=== PATIENT | female | born 1950 | race Caucasian/White ===

== ENCOUNTER → 2020-06-25 14:00 | Outpatient (CLI) | payer BC, SELFPAY ==
--- NOTE | ~2020-06-25 | MR_ITS ---
EXAMINATION: MR lumbar spine wo con DATE: 06/25/2020 15:02 INDICATION: Low back pain and right sacroiliac joint pain. TECHNIQUE: Magnetic resonance imaging (MRI) of the lumbar spine was performed without intravenous con trast. Sequences included sagittal T2-weighted FSE, sagittal T2-weighted FS FSE, sagittal T1-weighted FSE, and axial T2-weighted FSE. COMPARISON: None FINDINGS: Alignment is normal. Chronic T11 compression fracture with unchanged 20% anterior vertebral body heig ht loss. There is a relatively recent L1 burst fracture also with 20% anterior and central vertebral body height loss and with increased fluid signal extending along a horizontal fracture plane underlyi ng the depressed superior endplate. 2 mm right paracentral retropulsion. Schmorl's node along the inf erior endplate of T12. Remaining vertebral body heights are normal. T1 hyperintense hemangioma at T12 . Severe disc height loss at L4-L5. Moderate disc height loss at L1-L2 and mild disc height loss at T 9-T10. The conus medullaris terminates at L1. There is normal signal in the caudal spinal cord. Parav ertebral soft tissues are unremarkable. The following disc levels are specifically discussed: T12-L1: Annular fissure with broad-based disc extrusion extending from the left to the right subartic ular zone with disc material extending couple millimeters cephalad and caudal to the level of the end plates. There is mild bilateral facet joint osteoarthritis. There is mild bilateral neural foraminal stenosis. There is mild central canal stenosis. L1-L2: Posterior disc osteophyte complex. There is mild bilateral facet joint osteoarthritis. There i s mild bilateral neural foraminal stenosis. There is mild central canal stenosis. L2-L3: Disc is mildly bulging. There is mild bilateral facet joint osteoarthritis. There is mild bila teral neural foraminal stenosis. There is mild central canal stenosis. L3-L4: Disc is mildly bulging. There is mild to moderate bilateral facet joint osteoarthritis. There is mild bilateral neural foraminal stenosis. There is mild central canal stenosis. L4-L5: L4 inferior endplate osteophytes at the bilateral foraminal zones. The disc does not extend be yond the endplate margins. There is mild left facet joint osteoarthritis. There is fusion across the right facet joint. There is moderate left and mild to moderate right neural foraminal stenosis. There is minimal central canal stenosis. L5-S1: Disc osteophyte complex at the bilateral foraminal zones. There is mild to moderate bilateral facet joint osteoarthritis. There is moderate bilateral, right greater than left neural foraminal kalyn nosis. There is no central canal stenosis. IMPRESSION: 1. Relatively recent L1 burst fracture with marrow edema along the fracture line. 2. Severe lumbar spondylosis. Reviewed, dictated and finalized at location A. STMENT OFFICER IMPRESSION: 1. Relatively recent L1 burst fracture with marrow edema along the fracture christiana e. 2. Severe lumbar spondylosis.
== END ==
PROVIDERS: PCP Family Medicine; Visit Provider Physician Assistant Surgical
DX: S32.011A Stable burst fracture of first lumbar vertebra, initial encounter for closed fracture (principal); M47.27 Other spondylosis with radiculopathy, lumbosacral region; M51.46 Schmorl's nodes, lumbar region; M48.07 Spinal stenosis, lumbosacral region
CPT/HCPCS: 72148

== ENCOUNTER 2020-07-02 10:53 | Emergency (ER) | payer BC, SELFPAY ==
[2020-07-02] VITALS (20 sets, daily range): BP systolic 91–106; BP diastolic 57–83; PULSE 99–129; RESP 15–22; TEMP 36.4; O2SAT 91–99
--- NOTE | 2020-07-02 | ECHO_ITS ---
Patient Info Name: Dominga Reynaga Age: 69 years : 1950 Gender: Female Ht: 63 in Wt: 212 lbs BSA: 2.11 m2 HR: 101 bpm BP: 100 / 70 mmHg Technical Quality: Poor Exam Date: 07/02/2020 4:09 PM Exam Location: [facility] Pulmonary Exam Room: ER 3 Patient Status: Emergency Admit Date: 07/02/2020 Staff Ordering Physician: Emiliano Salazar MD Management Services Technician: Opal Trotter RDCS Attending Provider: Stephanie Walters MD Exam Type: CA echo doppler color flow Study Info Indications - eval rv size and fxn sob pe Complete two-dimensional, color flow and Doppler transthoracic echocardiogram is performed with contrast to opacify the left ventricle and to improve the deliniation of the left ventricle endocardial borders. Contrast/Agitated Saline Contrast/Ag. Saline: Definity Amount: 1.00 ml Existing IV Access: Yes IV Access Condition: patent with no signs of infiltration Reason for Poor Study: poor echocardiographic windows Summary 1. There is mildly increased left ventricular wall thickness. 2. Left ventricular systolic function is normal, estimated at 55-60%. 3. Left ventricular septal wall motion is abnormal with septal motion related to bundle branch block. 4. Right ventricular chamber dimension is moderately enlarged. 5. Right ventricular systolic function is reduced. 6. There is no mitral valve regurgitation. 7. There is mild to moderate tricuspid valve regurgitation. 8. Moderate pulmonary hypertension, estimated pulmonary arterial systolic pressure is 54 mmHg. Left Ventricle Left ventricular chamber dimension is normal. Left ventricular systolic function is normal, estimated at 55-60%. There is mildly increased left ventricular wall thickness. Left ventricular septal wall motion is abnormal with septal motion related to bundle branch block. The left ventricular diastolic function is normal. Right Ventricle Right ventricular chamber dimension is moderately enlarged. Right ventricular systolic function is reduced. Left Atria Left atrial chamber dimension is normal. Right Atria Right atrial chamber dimension is normal. Aortic Valve The aortic valve is trileaflet. There is no aortic valve sclerosis. There is no aortic valve stenosis. There is trace aortic valve regurgitation. Pulmonic Valve The pulmonic valve is normal. There is no pulmonic valve stenosis. There is no pulmonic regurgitation. Mitral Valve The mitral valve has normal leaflets. There is mild mitral valve stenosis. There is no mitral valve regurgitation. Tricuspid Valve The tricuspid valve leaflets are normal. There is no significant tricuspid valve stenosis. There is mild to moderate tricuspid valve regurgitation. Moderate pulmonary hypertension, estimated pulmonary arterial systolic pressure is 54 mmHg. Pericardium/Pleural The pericardium appears normal. There is no pericardial effusion. Inferior Vena Cava Normal inferior vena cava with >50% collapse upon inspiration consistent with elevated right atrial pressure, 10 mmHg. Aorta The aortic root size at the sinus of Valsalva is normal. The prox ascending aorta size is normal. Left Ventricular Outflow Tract Name Value Normal LVOT 2D
--- NOTE | ~2020-07-02 | XR_ITS ---
EXAMINATION: XR chest 1V portable DATE: 07/02/2020 11:41 INDICATION: Shortness of breath. TECHNIQUE: A single frontal view of the chest was obtained. COMPARISON: Chest 2 views 03/20/2017, CT abdomen and pelvis 04/02/2018 FINDINGS: There is a chronic 1 cm nodule in left midlung zone, likely benign. There is mild atelectas is in lingula. No pleural effusion or pneumothorax. The heart size is normal. There is a small slidin g hiatal hernia. IMPRESSION: 1. Mild atelectasis in lingula. 2. Small sliding hiatal hernia. Reviewed, dictated and finalized at location B. CTOR MUSEUM OR ZOO
--- NOTE | ~2020-07-02 | CT_ITS ---
EXAMINATION: CTA chest PE abdomen pel DATE: 07/02/2020 12:40 INDICATION: Shortness of breath. TECHNIQUE: Computed tomography angiography (CTA) of the chest was performed with 100 mL Omnipaque-350 intravenous contrast timed to evaluate the pulmonary arteries. Coronal maximum intensity projection 3D-reconstructions were created by the technologist. Computed tomography (CT) of the abdomen and pelv is was performed with intravenous contrast. Automated exposure control and iterative reconstruction t echnique were employed. The dose-length product was 1382.90 mGy-cm. COMPARISON: CT abdomen and pelvis 04/02/2018, lumbar spine MRI 06/25/20 FINDINGS: CTA chest: There is severe emphysema. There is mild atelectasis in lingula. A calcified left lung nod ule is consistent with old granulomatous disease. The heart demonstrates right ventricular and right atrial enlargement, consistent with right heart strain. No pericardial effusion. There are acute pulm onary emboli involving all lobes including sagittal emboli in the main pulmonary artery. The main pul monary artery is enlarged consistent with pulmonary arterial hypertension. CT abdomen and pelvis: There is a small sliding hiatal hernia. The liver and spleen are normal. There are changes of cholecystectomy. The pancreas and adrenal glands are normal. There is cortical thinni ng of the kidneys. There is diverticulosis of the colon without evidence of diverticulitis. There are changes of appendectomy. There are no dilated loops of bowel. There are no pathologically enlarged l ymph nodes. There is no free intraperitoneal fluid. There is a subacute burst fracture of L1 with 2/5 loss of height, stable from 06/25/2020. There is a chronic compression fracture of T11. There is mild lumbar spondylosis. IMPRESSION: 1. Severe acute pulmonary emboli with right heart strain. I called this result to Rex Morton. 2. Severe emphysema. Reviewed, dictated and finalized at location B. CE RECEPTIONIST
--- NOTE | 2020-07-02 11:03 | ECG_ITS ---
Measurements Intervals [place] Rate: 127 P: 65 [place]: 149 QRS: -46 QRSD: 125 T: 30 QT: 316 QTc: 461 Interpretive Statements SINUS TACHYCARDIA LEFT AXIS DEVIATION RIGHT BUNDLE BRANCH BLOCK BASELINE ARTIFACT- I, II, III, AVR, AVL, AVF, V1-V5 ABNORMAL ECG Electronically Signed On 07-02-2020 11:27:17 LYE BOILER by Mason Zhang D.O.
[2020-07-02 11:23] LABS: Basophils Percent Auto 0.5 % (0.2-1.2); Eosinophils Percent Auto 0.2 % (0-4.4); Hematocrit 37.4 % (37.0-47.0); Hemoglobin 11.9 g/dL (12.0-15.0); Immature Granulocyte Absolute 0.05 K/mm3 (0.00-0.031); Immature Granulocyte Percent A 0.6 % (0-0.5); Lymphocytes Absolute Auto 1.26 K/mm3 (0.9-3.2); Lymphocytes Percent Auto 14.5 % (18.3-44.2); Mean Corpuscular HGB Conc 31.8 g/dl (32-36); Mean Corpuscular Hemoglobin 24.3 pg (26-34); Mean Corpuscular Volume 76.3 fl (80-100); Mean Platelet Volume 9.8 fl (7.4-10.4); Monocytes Absolute Auto 0.6 K/mm3 (0.1-0.6); Monocytes Percent Auto 6.3 % (2.6-8.5); Neutrophils Absolute Auto 6.8 K/mm3 (1.3-6.7); Neutrophils Percent Auto 77.9 % (45.5-73.1); Platelet Count Result 205 k/mm3 (150-375); Red Cell Distribution Width 17.7 % (11.5-14.5); White Blood Count 8.7 K/mm3 (4.5-10.0)
[2020-07-02 11:35] LABS: Alanine Aminotransferase 39 U/L (4-35); Alkaline Phosphatase 95 U/L (38-126); Anion Gap 11 mmol/L (8-16); Aspartate Amino Transferase 49 U/L (14-36); Bilirubin,Total 0.8 mg/dL (0.2-1.3); Blood Urea Nitrogen 28 mg/dL (7-17); Calcium 9.4 mg/dL (8.4-10.2); Carbon Dioxide 26 mmol/L (22-30); Chloride 99 mmol/L (98-107); Estimated Glomerular Filt Rate 37; Glucose 152 mg/dL (65-105); Lipase 77 U/L (23-300); Sodium 136 mmol/L (137-145)
[2020-07-02 11:35] LABS: INR 1.1; Prothrombin Time 14.4 Seconds (11.1-14.7)
[2020-07-02 11:36] LABS: Partial Thromboplastin Time 27.1 SECONDS (22.3-36.8)
[2020-07-02 11:51] LABS: NT Pro B Type Natriuretic Pept 3440 PG/ML (5-100); Troponin I 0.357 ng/mL (0.000-0.034)
[2020-07-02] MEDS: MORPHINE SULFATE (*CRX) 2 MG/ML INJ IV PUSH ×2 (11:51→13:50)
[2020-07-02] MEDS: SODIUM CHLORIDE 0.9% IV 500 ML 999 ML IV CONT ×2 (11:51→13:53)
[2020-07-02 11:54] LABS: Lactic Acid Reflex 1.9 mmol/L (0.7-2.1)
[2020-07-02 11:58] LABS: Alveolar/Arterial O2 Gradient 50.1 mmHg; Carboxyhemoglobin 0.3 % THb (0-2.0); Fractional Inspired Oxygen 21 %; HCO3 ABG 23.1 mEq/l (22.0-26.0); Methemoglobin ABG 0.3 %THb (0-1.5); Oxygen Content ABG 15.7 %vol (16.0-22.0); Oxyhemoglobin 90.1 % THb (90.0-100.0); PCO2 ABG 32.4 mmHg (35.0-45.0); PO2 ABG 60.8 mmHg (80.0-100.0); Reduced Hemoglobin 9.3 %THb (0-5.0); Total Hemoglobin 12.4 g/dL (12.0-18.0)
[2020-07-02 11:59] LABS: Device ROOM AIR; Site Drawn RIGHT BRACHIAL
[2020-07-02 12:02] LABS: D Dimer > 20.00 ug/mL (<0.48)
--- NOTE | 2020-07-02 12:41 | ED.GENADULT ---
HPI - General Adult General Chief complaint: Shortness of Breath/Dyspnea Stated complaint: SOB Time Seen by Provider: 07/02/20 11:08 Source: patient Mode of arrival: ambulatory Limitations: no limitations History of Present Illness HPI narrative: Patient is a 69-year-old female who presents to emergency department for evaluation of shortness of breath and weakness that came on acutely this morning patient had a similar occurrence last night which resolved patient denies any recent URI symptoms chest pain or similar occurrence in the past on arrival per EMS patient appears uncomfortable symptoms worsen with any activity or movement patient has not taken anything for her symptoms Related Data Home Medications Medication Instructions Recorded Confirmed liothyronine 25 mcg tablet 75 mcg PO DAILY tablet 09/06/19 03/06/20 metformin 500 mg tablet,extended 1,000 mg PO BID tablet 09/06/19 03/06/20 release 24 hr phendimetrazine tartrate 105 mg 105 mg PO DAILY 09/06/19 03/06/20 capsule,extended release vitamin D3 5,000 unit-folic acid 1 1 tablet PO DAILY 09/06/19 03/06/20 mg tablet magnesium oxide,aspartate,citr 800 mg PO .QHS cap 03/06/20 03/06/20 Allergies Allergy/AdvReac Type Severity Reaction Status Date / Time No Known Allergies Allergy Verified 07/02/20 11:01 Review of Systems Review of Systems: All systems reviewed & are unremarkable except as noted in HPI and below PMFSH Past Medical History Medical History (Updated 07/02/20 @ 13:12 by Rex Morton PA-C) Cervical vertebral fusion Hiatal hernia History of vaginal delivery Hypertension Insulin resistance Normal endoscopy Obesity (BMI 30-39.9) Surgical History Surgical History History of appendectomy History of cataract removal with insertion of prosthetic lens History of cholecystectomy History of laminectomy History of total left knee replacement (TKR) [place] teeth removed Family History Family History Father Depression Family history of lung cancer Sibling Family history of lung cancer Social History Social History Smoking status: Former smoker Second hand tobacco smoke exposure: No Smoking end date: 07/24/13 Alcohol intake: current Substance use: never Substance use type: does not use Gender identity (if verbalized by the patient): Female Spiritual care concerns: No Agree to blood products: Yes Exam Narrative: Exam Narrative: GENERAL: Ill-appearing, well-nourished, uncomfortable and in no acute distress. HEAD: Normocephalic, atraumatic. EYES: PERRLA and EOMI. ENT: Nares clear, no rhinorrhea or epistaxis. Mucous membranes moist. NECK: Supple. No adenopathy or masses. No carotid bruits or JVD CHEST: Clear to auscultation. No respiratory distress. No wheezes rales or rhonchi HEART: Tachycardic rate and regular rhythm. No murmur heard. EXTREMITIES: Normal range of motion. No edema. SKIN: Warm, dry, no rash. NEURO: No focal deficits. Alert and oriented x3. Cranial nerves II through XII grossly intact PSYCH: Normal mood and affect. Course Course Emergency Course: Patient presented with dyspnea and tachycardia there was concern for pulmonary embolus which was found on CTA patient with elevated troponin right heart strain saddle embolus hemodynamically stable at this time ABCs intact heparin was initiated phone call was made to the interventionalists who is preparing to have the patient transferred for EKOS. Patient is agreement with this plan. Patient was placed on 2 L nasal cannula oxygen but was not requiring oxygen at this time for hypoxemia. Patient denying any chest pain. Patient aware of discussions with the interventionalists Reevaluation(s) Reevaluation #1: Patient in the ER at this time continued to feel uncomfortable with her low ba
[2020-07-02] MEDS: HEPARIN SODIUM 5,000 UNITS/ML VIAL 7500 UNITS IV PUSH (12:49)
[2020-07-02] MEDS: HEPARIN SOD/D5W 100 UNITS/ML 25,000 UNITS/250 ML BAG 13 UNITS IV CONT (13:04)
--- NOTE | 2020-07-02 14:48 | PM.CNCAR ---
Assessment and Plan Assessment and plan (1) Pulmonary embolism: Code(s): I26.99 - Other pulmonary embolism without acute cor pulmonale Status: Acute Assessment and Plan: Sub massive PE, with large burden of thrombus more so on the left side, and right ventricular straining, causing elevation of troponin. She would benefit from catheter based approach with EKOS. Will arrange for transfer to [facility] for that procedure. Meanwhile continue with heparin, closer monitoring, will get echocardiogram to evaluate right ventricular size and function, in the event that her hemodynamics with change then she would be classified as massive PE, in that case we have to use systemic thrombolytics (2) Elevated troponin: Code(s): R77.8 - Other specified abnormalities of plasma proteins Status: Acute Assessment and Plan: With troponin elevation likely is due to RV straining due to the PE (3) Tachycardia: Code(s): R00.0 - Tachycardia, unspecified Status: Acute (4) Hypertension: Qualifiers: Hypertension type: essential hypertension Qualified Code(s): I10 - Essential (primary) hypertension Code(s): I10 - Essential (primary) hypertension Status: Acute Additional Plan Thank you for allowing me to participate in this patient's care, I will be following up with you. Please do not hesitate to call me for any other inquiry History of Present Illness History of Present Illness Consult date/time: 07/02/20 14:48 69-year-old lady with history of COPD, history of hypertension, came to the hospital because of sudden onset shortness of breath, with mild respiratory distress improved after she was started on heparin, her CT of the chest showed bilateral PE with large occlusive thrombus in the left pulmonary artery, and saddle embolus noted with extension to the right pulmonary artery. No history of PE or DVT in the past, she has some leg pain leg swelling but no diagnosed DVT or PE in the past. She had significant shortness of breath for the past 2-3 days, no orthopnea no chest pain. Her CT showed bilateral PE with right ventricular enlargement, and her troponins were slightly elevated indicative of right ventricular strain indicating submassive PE Reason For Visit: SOB Review of Systems Constitutional: Constitutional: Reports as per HPI Cardiovascular: Cardiovascular: Reports as per HPI Respiratory: Respiratory: Reports chest congestion, Reports pain on inspiration and Reports dyspnea on exertion Gastrointestinal: Gastrointestinal: Reports no additional gastrointestinal complaints PMFSH Past Medical History Medical History Cervical vertebral fusion Hiatal hernia History of vaginal delivery Hypertension Insulin resistance Normal endoscopy Obesity (BMI 30-39.9) Surgical History Surgical History History of appendectomy History of cataract removal with insertion of prosthetic lens History of cholecystectomy History of laminectomy History of total left knee replacement (TKR) [place] teeth removed Family History Family History Father Depression Family history of lung cancer Sibling Family history of lung cancer Social History Social History Smoking status: Former smoker Second hand tobacco smoke exposure: No Smoking end date: 07/24/13 Alcohol intake: current Substance use: never Substance use type: does not use Gender identity (if verbalized by the patient): Female Spiritual care concerns: No Agree to blood products: Yes Meds Home Medications and Allergies Home Medications Medication Instructions Recorded Confirmed Type liothyronine 25 mcg tablet 75 mcg PO DAILY tablet 09/06/19 03/06/20 History metformin 500
[2020-07-02 14:55] LABS: Troponin I 0.475 ng/mL (0.000-0.034)
[2020-07-02] MEDS: PERFLUTREN LIPID MICROSPHERES 1.5 ML VIAL DILUTED TO 10 ML TOTAL VOLUME (16:30)
--- NOTE | 2020-07-02 17:05 | PC.NURSE ---
[facility] declined transfer. [facility] accepted transfer. ETA I hr. Trip no. [id number].
== END 2020-07-02 17:40 | disposition short-term general hospital (02) ==
PROVIDERS: Emergency Medicine Emergency Medical Services; Emergency Provider Emergency Medicine; PCP Family Medicine
DX: I26.99 Other pulmonary embolism without acute cor pulmonale (principal); R77.8 Other specified abnormalities of plasma proteins; I10 Essential (primary) hypertension; R00.0 Tachycardia, unspecified; Z79.84 Long term (current) use of oral hypoglycemic drugs; Z98.1 Arthrodesis status; E88.81 Metabolic syndrome and other insulin resistance; Z96.652 Presence of left artificial knee joint; Z87.891 Personal history of nicotine dependence; I45.10 Unspecified right bundle-branch block; R91.8 Other nonspecific abnormal finding of lung field; K44.9 Diaphragmatic hernia without obstruction or gangrene; J43.9 Emphysema, unspecified
CPT/HCPCS: 36415; 36600; 71045; 71275; 74177; 80053; 82375; 82805; 83050; 83605; 83690; 83880; 84484; 85025; 85380; 85610; 85730; 87040; 93005; 93306; 96365; 96366; 96367; 96375; 96376; 99291; C8929; J0131; J1644; J2270; J7040; Q9957; Q9967

== ENCOUNTER 2020-07-23 11:18 | Outpatient (CLI) | payer BC, SELFPAY ==
--- NOTE | ~2020-07-23 | CT_ITS ---
EXAMINATION: CTA chest PE protocol DATE: 07/23/2020 11:44 INDICATION: Shortness of breath, recent pulmonary embolism TECHNIQUE: Computed tomography angiography (CTA) of the chest was performed with 100 mL Omnipaque-350 intravenous contrast timed to evaluate the pulmonary arteries. Coronal maximum intensity projection 3D-reconstructions were created by the technologist. The dose-length product (DLP) was 711.90 mGy-cm. Automated exposure control and iterative reconstruction technique were employed. COMPARISON: 07/02/2020 FINDINGS: The pulmonary arteries are well-opacified. There are persistent nonocclusive emboli in the lower lobes with significant decrease in clot burden since the comparison examination. The previously described saddle embolus as well as emboli in the upper lobes, right middle lobe, and lingula are no longer evident. There is severe emphysema. Right heart strain is no longer evident. The heart size i s normal. There is no pleural effusion or pneumothorax. There are no pathologically enlarged thoracic lymph nodes. The gallbladder is surgically absent. Again noted are a chronic compression fracture of T11 and subacute burst fracture of L1. IMPRESSION: 1. Improved but persistent nonocclusive emboli in the lower lobes with overall significant reduction in clot burden since the comparison examination. 2. Severe emphysema. Reviewed, dictated and finalized at location A. RNEY RECRUITER
== END 2020-07-23 11:19 | disposition home or self-care (01) ==
LOC: ANHIMG 11:20
PROVIDERS: PCP Family Medicine; Visit Provider Specialist
DX: I26.99 Other pulmonary embolism without acute cor pulmonale (principal); J43.9 Emphysema, unspecified
CPT/HCPCS: 71275; Q9967

== ENCOUNTER 2020-09-23 09:02 | Outpatient (CLI) | payer MEDICARE, BC, SELFPAY ==
--- NOTE | ~2020-09-23 | NM_ITS ---
EXAMINATION: NM bone scan whole body DATE: 09/23/2020 12:02 INDICATION: Lumbar burst fracture TECHNIQUE: 23.6 mCi Tc-99m HDP was administered intravenously. Delayed whole-body scintigrams were o btained. COMPARISON: CT dated 07/23/2020, 07/02/2020 and lumbar spine MR dated 06/25/2020 FINDINGS: There is moderate increased uptake associated with an L1 burst fracture which appeared subacute on pr ior imaging from 3 months prior. Mild likely degenerative increased uptake at the bilateral acromiocl avicular and right sternoclavicular articulations. Photopenic defect at the left knee consistent with a total knee arthroplasty. Mild thoracic dextrocurvature. No other suspicious bone lesions to sugges t metastatic disease. IMPRESSION: 1. Increased uptake with a subacute early chronic L1 burst fracture. No other suspicious bone lesions . Reviewed, dictated and finalized at location B. NEER INTERNSHIP IMPRESSION: 1. Increased uptake with a subacute early chronic L1 burst fracture. No other s uspicious bone lesions.
== END 2020-09-23 09:03 | disposition home or self-care (01) ==
PROVIDERS: PCP Physician Assistant; Visit Provider Nurse Practitioner Family
DX: S32.001A Stable burst fracture of unspecified lumbar vertebra, initial encounter for closed fracture (principal)
CPT/HCPCS: 78306; A9561

== ENCOUNTER 2020-09-24 10:10 | Outpatient (CLI) | payer MEDICARE, BC, SELFPAY ==
--- NOTE | 2020-09-25 07:31 | P.PCNPFT_ITS ---
PFT Interpretation This is a pulmonary function test with pre and post-bronchodilator spirometry, plethysmography and diffusing capacity. The test was performed and results interpreted in accordance with the 2019 and 2005 ATS/ERS Task Force guidelines respectively using the Global Lung Function Initiative-2012 reference equations. Quality of the pre bronchodilator spi rometry maneuver was Grade A and post bronchodilator spirometry maneuver was Grade A. Findings: Spirometry: there is decreased maximal expiratory airflow with a concave expiratory flow tracing. The contour of the inspiratory flow tracing is normal. The pre bronchodilator FVC is 2.07 L, 75% predicted. The pre bronchodilator FEV1 is 1.32 L, 62% predicted. The FEV1: FVC ratio is 64%. The post bronchodilator FVC is 2.25 L, representing a 9% increase. The post bronchodilator FEV1 is 1.39 L, representing a 5% increase. Plethysmography: The total lung capacity is 5.42 L, 111% predicted. The functional residual capacity is 3.30 L, 118% predicted. The residual volume is 3.23 L, 151% predicted. Diffusing capacity: The absolute diffusion capacity is 11.2, 56% predicted. The diffusing capacity corrected for alveolar volume is 3.05, 70% predicted. In comparison to previous pulmonary function test in our laboratory on 09/17/2018 the post bronchodilator FVC is unchanged from 2.20 L to 2.25 L. The post bronchodilator FEV1 is unchanged from 1.36 L to 1.39 L. The total lung capacity is unchanged from 5.04 L to 5.42 L. The functional residual capacity is unchanged from 3.53 L to 3.30 L. The residual volume is unchanged from 3.07 L to 3.23 L. The diffusing capacity corrected for alveolar volume is unchanged from 3.01 to 3.05. Impression: There is a moderate obstructive abnormality without significant improvement after inhaling a single dose of albuterol. The increase in residual volume is consistent with air trapping from an obstructive abnormality. The absolute diffusing capacity is moderately decreased but normalizes when corrected for alveolar volume. When compared to prior pulmonary function test on 09/17/2018 there has been no significant change in spirometry, lung volumes or diffusing capacity.
--- NOTE | 2020-09-25 13:38 | PCRCNOTE ---
PT DECLINED 6 MINUTE WALK DUE TO FRACTUR OF SPINE. C/O PAIN AT 10.
== END 2020-09-24 10:11 | disposition home or self-care (01) ==
PROVIDERS: PCP Physician Assistant; Visit Provider Internal Medicine Pulmonary Disease
DX: I26.99 Other pulmonary embolism without acute cor pulmonale (principal); J43.9 Emphysema, unspecified; R94.2 Abnormal results of pulmonary function studies
CPT/HCPCS: 94060; 94726; 94729

== ENCOUNTER → 2020-09-25 06:51 | Outpatient (CLI) | payer BC, MEDICARE, SELFPAY ==
[2020-09-26 08:28] LABS: SARS-CoV-2 RNA PCR Negative
== END ==
PROVIDERS: PCP Physician Assistant; Visit Provider Pain Medicine Pain Medicine
DX: Z01.812 Encounter for preprocedural laboratory examination (principal); Z20.822 Contact with and (suspected) exposure to COVID-19
CPT/HCPCS: C9803; U0003; U0005

== ENCOUNTER 2020-10-07 12:56 | Outpatient (CLI) | payer BC, MEDICARE, SELFPAY ==
--- NOTE | ~2020-10-07 | DEXA_ITS ---
Bone Density Report Name: Dominga Reynaga Age: 70 Sex: Female Ethnicity: White Date of : 1950 Indication: osteopenia; height loss; prior fracture; asthma or emphysema; postmenopausal Referring Provider: Patrick Galo Study: Bone densitometry was performed. Exam Date: October 07, 2020 Accession number: [id number] Bone Density: Region BMD T-score Z-score Classification AP Spine (L1-L4) 0.735 -2.8 -0.7 Osteoporosis Femoral Neck (Left) 0.427 -3.8 -2.0 Osteoporosis Total Hip (Left) 0.600 -2.8 -1.3 Osteoporosis Total Hip Bilateral Avg 0.692 -2.1 -0.6 Osteopenia Femoral Neck (Right) 0.542 -2.8 -1.0 Osteoporosis Total Hip (Right) 0.782 -1.3 0.2 Osteopenia World Health Organization criteria for BMD impression classify patients as: Normal (T-score at or above -1.0), Osteopenia (T-score between -1.0 and -2.5), or Osteoporosis (T-score at or below -2.5). 10-year Fracture Risk: FRAX not reported because: Some T-score for Spine Total or Hip Total or Femoral Neck at or below -2.5 Prior hip or vertebral fracture Previous Exams: Region Exam Age BMD T-score BMD Change BMD Change Date g/cm2 vs Baseline vs Previous AP Spine(L1-L4) 10/07/2020 70 0.735 -2.8 -0.016(-2.2%)# -0.099(-11.9%) 07/14/2007 57 0.834 -1.9 0.083(11.0%)* -0.044(-5.1%)* 06/21/2005 54 0.878 -1.5 0.127(17.0%)* 0.127(17.0%)* 05/30/2003 52 0.751 -2.7 Total Hip(Left) 10/07/2020 70 0.600 -2.8 -0.138(-18.8%) -0.123(-17.0%) 07/14/2007 57 0.723 -1.8 -0.015(-2.1%) -0.010(-1.4%) 06/21/2005 54 0.733 -1.7 -0.005(-0.7%) -0.005(-0.7%) 05/30/2003 52 0.738 -1.7 Total Hip(Right) 10/07/2020 70 0.782 -1.3 0.041(5.5%)# 0.032(4.3%)# 07/14/2007 57 0.750 -1.6 0.009(1.2%) 0.023(3.2%) 06/21/2005 54 0.727 -1.8 -0.015(-2.0%) -0.015(-2.0%) 05/30/2003 52 0.741 -1.6 *Denotes significance at 95% confidence level, LSC for AP Spine = 0.022 g/cm2, LSC for Total Hip = 0.027 g/cm2 Clinical Information Provided by Patient: Have had a previous hip or vertebral fracture Has had a low trauma fracture Has used the following medications: Vitamin D, Calcium Has the following medical conditions: Asthma or Emphysema Patient maximum height was 64 Menopause Age: 46 No regular weight bearing exercise Onset of menses at age 14 Number of children 1 Impression: The patient has established osteoporosis, based on the Left Femoral Neck T-score and the existence of a p
== END 2020-10-07 12:57 | disposition home or self-care (01) ==
LOC: ANHIMG 12:58
PROVIDERS: PCP Physician Assistant; Visit Provider Physician Assistant
DX: M81.0 Age-related osteoporosis without current pathological fracture (principal); M85.852 Other specified disorders of bone density and structure, left thigh; M85.851 Other specified disorders of bone density and structure, right thigh
CPT/HCPCS: 77080

== ENCOUNTER → 2020-11-20 11:07 | Outpatient (CLI) | payer BC, MEDICARE, SELFPAY ==
--- NOTE | ~2020-11-20 | MM_ITS ---
EXAMINATION: MM screening jose luis BI w chuyita HISTORY: Screening mammogram TECHNIQUE: Craniocaudal and mediolateral oblique 3-D tomosynthesis images were obtained and synthetic 2-D images were generated. CAD analysis was submitted and interpreted. COMPARISON: 06/13/2016, 06/08/2015, 03/04/2014 bilateral digital screening mammogram examinations BREAST PARENCHYMAL COMPOSITION: The breasts are almost entirely fatty. FINDINGS: There is no evidence of suspicious mass, calcification, or architectural distortion to sugg est malignancy in either breast. There has been no suspicious interval change. IMPRESSION: 1. No mammographic evidence of malignancy. 2. Recommend routine screening mammography in one year. BI-RADS Category 1: Negative Reviewed, dictated and finalized at location A.
== END ==
PROVIDERS: PCP Physician Assistant; Visit Provider Physician Assistant
DX: Z12.31 Encounter for screening mammogram for malignant neoplasm of breast (principal)
CPT/HCPCS: 77063; 77067

== ENCOUNTER 2020-12-04 12:37 | Outpatient (CLI) | payer MEDICARE, BC, SELFPAY ==
[2020-12-04 13:30] VITALS: PULSE 87; O2SAT 98
[2020-12-04 13:35] VITALS: PULSE 103; O2SAT 94
[2020-12-04 13:40] VITALS: PULSE 83; O2SAT 97
== END 2020-12-04 12:38 | disposition home or self-care (01) ==
LOC: ANHPFT 12:39
PROVIDERS: PCP Physician Assistant; Visit Provider Internal Medicine Pulmonary Disease
DX: I26.99 Other pulmonary embolism without acute cor pulmonale (principal); J34.9 Unspecified disorder of nose and nasal sinuses
CPT/HCPCS: 94618

== ENCOUNTER 2021-03-28 08:32 | Outpatient (CLI) | payer MEDICARE, SELFPAY ==
--- NOTE | ~2021-03-28 | MR_ITS ---
EXAMINATION: MR lumbar spine wo con DATE: 03/28/2021 09:18 INDICATION: Unspecified fracture of fifth lumbar vertebra. TECHNIQUE: Magnetic resonance imaging (MRI) of the lumbar spine was performed without intravenous con trast. Sequences included sagittal T2-weighted FSE, sagittal STIR FSE, sagittal T2-weighted FS FSE, s agittal T1-weighted FSE, and axial T2-weighted FSE. COMPARISON: Lumbar spine MRI 06/25/2020 FINDINGS: There is 5 degrees levocurvature of lumbar spine. There is a chronic compression fracture o f T11 with 2/5 loss of height. There is a chronic compression fracture of L1 with 2/5 loss of height and changes of vertebroplasty. There is severely decreased disc height at T12-L1, L1-L2, and L4-L5. T he distal spinal cord signal intensity is normal. The conus medullaris is at L1. The following disc l evels are specifically discussed: T12-L1: The disc is bulging. There is mild bilateral facet joint osteoarthritis. There is mild bilate ral neural foraminal stenosis. There is mild central canal stenosis. L1-L2: The disc is bulging and has an annular fissure. There is mild bilateral facet joint osteoarthr itis. There is mild bilateral neural foraminal stenosis. There is mild central canal stenosis. L2-L3: The disc is mildly bulging. There is mild bilateral facet joint osteoarthritis. There is mild bilateral neural foraminal stenosis. There is no central canal stenosis. L3-L4: The disc is mildly bulging. There is severe bilateral facet joint osteoarthritis. There is mil d bilateral neural foraminal stenosis. There is no central canal stenosis. L4-L5: The disc does not extend beyond the endplate margin. There is severe bilateral facet joint ost eoarthritis. There is mild bilateral neural foraminal stenosis. There is no central canal stenosis. L5-S1: The disc is mildly bulging. There is severe bilateral facet joint osteoarthritis. There is mod erate right and mild left neural foraminal stenosis. There is no central canal stenosis. IMPRESSION: 1. Severe lumbar spondylosis, stable from 06/25/2020. Reviewed, dictated and finalized at location A.
== END 2021-03-28 08:33 | disposition home or self-care (01) ==
PROVIDERS: PCP Physician Assistant; Visit Provider Physical Medicine & Rehabilitation Pain Medicine
DX: S32.059A Unspecified fracture of fifth lumbar vertebra, initial encounter for closed fracture (principal); M47.816 Spondylosis without myelopathy or radiculopathy, lumbar region
CPT/HCPCS: 72148

== ENCOUNTER 2021-07-05 09:51 | Outpatient (CLI) | payer MEDICARE, SELFPAY ==
--- NOTE | ~2021-07-05 | CT_ITS ---
EXAMINATION: CT lung screening DATE: 07/05/2021 10:15 INDICATION: History of tobacco abuse. TECHNIQUE: Computed tomography (CT) of the chest was performed without intravenous contrast. The dose -length product was 206.89 mGy-cm. Automated exposure control and iterative reconstruction technique were employed. COMPARISON: CT dated 07/23/2020 FINDINGS: Heart size normal. No significant pleural or pericardial effusion. Small hiatal hernia. The re is atherosclerosis of the aorta and coronary arteries. No lymphadenopathy. The upper abdomen is un remarkable. Severe emphysema. No endobronchial lesions. Calcified granulomas left upper lobe. No pneu mothorax. There is lingular atelectasis/scarring. There are a few 1-2 mm bilateral pulmonary nodules predominantly in the apices. Chronic compression fracture of T11. Mild thoracic spondylosis with acce ntuated kyphosis. Partially visualized compression fracture of L1. IMPRESSION: 1. Lung-RADS category 2: Benign appearance or behavior. Continue annual screening with noncontrast lo w-dose chest CT in 12 months. Reviewed, dictated and finalized at location A. 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 Lung-RADS category 2: Benign appearance or behavior. Continue annual screeni ng with noncontrast low-dose chest CT in 12 months.
== END 2021-07-05 09:52 | disposition home or self-care (01) ==
LOC: ANHIMG 09:58
PROVIDERS: PCP Family Medicine; Visit Provider Physician Assistant
DX: Z12.2 Encounter for screening for malignant neoplasm of respiratory organs (principal); Z87.891 Personal history of nicotine dependence
CPT/HCPCS: 71271

== ENCOUNTER 2021-07-26 07:48 | Outpatient (CLI) | payer MEDICARE, SELFPAY ==
--- NOTE | 2021-07-27 15:13 | WPDHOMESLEEP ---
Sleep Study - Home Unattended Date of Study: 07/26/21 <Julia Chun DO - Last Filed: 07/27/21 15:29> Ordering Provider: EUGENIA Jackson <Julia Chun, - Last Filed: 07/27/21 15:29> Interpreting Provider: Julia Chun DO <Julia Chun, DO - Last Filed: 07/27/21 15:29> Home Sleep Study Type: Apnea Link Air <Julia Chun DO - Last Filed: 07/27/21 15:29> Height: 1.57 m <Julia Chun DO - Last Filed: 07/27/21 15:29> Weight: 106.594 kg <Julia Chun DO - Last Filed: 07/27/21 15:29> Body Mass Index: 43.0 <Julia Chun DO - Last Filed: 07/27/21 15:29> Neck Circumference (inches): 15.75 <Julia Chun DO - Last Filed: 07/27/21 15:29> [place]spring: 3 <Julia Chun DO - Last Filed: 07/27/21 15:29> Reason for Sleep Study Daytime hypersomnia and nocturnal hypoxemia <Julia Chun DO - Last Filed: 07/27/21 15:29> Sleep History The patient is a 71-year-old female with hypertension, COPD, nocturnal hypoxemia (on 2 lpm of O2), osteoporosis, GERD, iron deficiency anemia and history of tobacco abuse that had a home sleep test ordered by her technical applications specialist. The patient pursuing bariatric surgery and a sleep study is required. 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 She denies awakening from sleep short of breath. She denies awakening at night with heartburn, belching or cough. She rarely snores but it is never loud enough that others complain. She rarely has trouble sleeping when she has a cold. She denies waking up gasping for air throughout the night. She denies sweating excessively at night. She denies heart palpitations or irregular heartbeats during the night. She denies falling asleep during the day and while driving. She denies sleep paralysis, cataplexy and hypnagogic / hypnopompic hallucinations he rarely has nightmares. She rarely remembers her dreams. She denies having thoughts racing through her mind. She occasionally feels sad or depressed. She rarely has anxiety. She occasionally has muscular tension. He denies noticing parts of her body jerk and kicking throughout the night. She denies crawling and aching feelings in her legs as well as leg pain during the night. She denies grinding her teeth during sleep awakening with morning jaw pain. She is constantly bothered by pain during the day and frequently awakened by pain during the night. She constantly wakes up feeling stiff in the morning with sore and achy muscles. She constantly wakes up with pain in the neck, spine and other joints. She goes to bed at midnight on both weekdays and weekends. She is unsure how long it takes her to fall asleep. She wakes up twice throughout the night to use the restroom. She is unsure how long it takes her to fall back asleep. She will wake up between 7-8:30 am on both weekdays and weekends. She typically gets between 6 and 8 hours of sleep per night. She will stay in bed for 5-10 minutes after waking up in the morning. She currently lives with her . She does not consume any caffeinated beverages within 2 hours of bedtime. She does not engage in physical exercise before bedtime. She will read and watch television before falling asleep. She will take naps in the afternoon or the evening. The patient currently consumes 1-2 cups of caffeinated beverage per day. She drinks alcohol socially. She quit smoking cigarettes in 2016. She denies recreational drug use. <Julia Chun DO - Last Filed: 07/27/21 15:29> [facility] Past Medical History Medical History: Medical History BMI 40.0-44.9, adult Cervical vertebral fusion Hiatal hernia History of tobacco use History of vaginal delivery Hypertension Insulin resistance Nocturnal hypoxia Normal endoscopy Obesity (BMI 30-39.9) <Julia Chun DO - Last Filed: 07/27/21 1
[2021-07-27 15:28] VITALS: BMI 43.0
== END 2021-07-27 11:31 | disposition home or self-care (01) ==
PROVIDERS: PCP Family Medicine; Visit Provider Physician Assistant
DX: G47.10 Hypersomnia, unspecified (principal); G47.33 Obstructive sleep apnea (adult) (pediatric)
CPT/HCPCS: 95806

== ENCOUNTER 2021-09-02 12:37 | Outpatient (CLI) | payer MEDICARE, SELFPAY ==
[2021-09-02 13:00] VITALS: PULSE 88; O2SAT 94
[2021-09-02 13:05] VITALS: PULSE 102; O2SAT 85
[2021-09-02 13:10] VITALS: PULSE 104; O2SAT 86
[2021-09-02 13:15] VITALS: PULSE 99; O2SAT 88
[2021-09-02 13:20] VITALS: PULSE 98; O2SAT 90
[2021-09-02 13:30] VITALS: PULSE 89; O2SAT 94
--- NOTE | 2021-09-02 14:39 | HOMEO2EVAL ---
Evaluation was performed at [facility] Home Oxygen Evaluation RC: Home Oxygen (O2) Evaluation Start: 09/02/21 14:35 Freq: Status: Active Protocol: RPE Activity Type Activity Date Activity User E-Sign Co-Sign Detail Recorded Client Recorded Date Recorded By Document 09/02/21 13:00 [email or web address] [email or web address] 09/02/21 14:39 DJO Document 09/02/21 13:05 [email or web address] [email or web address] 09/02/21 14:39 DJO Document 09/02/21 13:10 [email or web address] [email or web address] 09/02/21 14:39 DJO Document 09/02/21 13:15 [email or web address] [email or web address] 09/02/21 14:39 DJO Document 09/02/21 13:20 [email or web address] [email or web address] 09/02/21 14:39 DJO Document 09/02/21 13:30 [email or web address] [email or web address] 09/02/21 14:39 DJO 09/02/21 09/02/21 09/02/21 13:00 13:05 13:10 Home O2 Evaluation Test Phase Resting Exercise Exercise Oxygen Delivery Room Air Room Air Nasal Cannula Oxygen Flow Rate (L/min) 1 Pulse Oximetry (90-100 %) 94 85 L 86 L Pulse Rate (60-100 beats/min) 88 102 H 104 H Activity Tolerance Ambulation Distance (feet) Ambulation Distance (meters) Home Oxygen Evaluation Comments Treatment Charges O2 Evaluation - Outpatient 09/02/21 09/02/21 09/02/21 13:15 13:20 13:30 Home O2 Evaluation Test Phase Exercise Exercise Resting Oxygen Delivery Nasal Cannula Nasal Cannula Room Air Oxygen Flow Rate (L/min) 2 3 Pulse Oximetry (90-100 %) 88 L 90 94 Pulse Rate (60-100 beats/min) 99 98 89 Activity Tolerance Fair Ambulation Distance (feet) 500 Ambulation Distance (meters) 152.39 Home Oxygen Evaluation Comments PT WALKED WITH A CANE Treatment Charges
== END 2021-09-02 12:38 | disposition home or self-care (01) ==
PROVIDERS: PCP Family Medicine; Visit Provider Physician Assistant
DX: J44.9 Chronic obstructive pulmonary disease, unspecified (principal); G47.34 Idiopathic sleep related nonobstructive alveolar hypoventilation
CPT/HCPCS: 94618

== ENCOUNTER 2021-12-31 00:48 | Emergency (ER) | payer MEDICARE, SELFPAY ==
[2021-12-31] VITALS (96 sets, daily range): BP systolic 101–139; BP diastolic 53–89; PULSE 60–82; RESP 11–32; TEMP 36.6; O2SAT 95–100
--- NOTE | ~2021-12-31 | XR_ITS ---
EXAMINATION: XR chest 2V DATE: 12/31/2021 01:34 INDICATION: Chest pain. TECHNIQUE: Frontal and lateral views of the chest were obtained. COMPARISON: Chest single view 07/02/2020, chest CT 12/31/2021 FINDINGS: There are lucencies in the lungs, consistent with emphysema. There are airspace opacities i n anterior segment left upper lobe. Calcified left lung nodules and calcified left hilar lymph nodes are consistent with old granulomatous disease. There is mild atelectasis in the lower lung zones. No pleural effusion or pneumothorax. The heart size is normal. There are changes of vertebroplasty at L1 . Surgical clips in the right upper quadrant are likely from cholecystectomy. IMPRESSION: 1. Airspace opacities in anterior segment left upper lobe, consistent with infarct. 2. Mild atelectasis in the lower lung zones. 3. Emphysema. Reviewed, dictated and finalized at location A. IMPRESSION: 1. Airspace opacities in anterior segment left upper lobe, consistent with infa rct. 2. Mild atelectasis in the lower lung zones. 3. Emphysema.
--- NOTE | ~2021-12-31 | CT_ITS ---
EXAMINATION: CTA chest PE protocol DATE: 12/31/2021 03:10 INDICATION: Chest pain. Shortness of breath. TECHNIQUE: Computed tomography angiography (CTA) of the chest was performed with 100 mL Omnipaque-350 intravenous contrast timed to evaluate the pulmonary arteries. Coronal maximum intensity projection 3D-reconstructions were created by the technologist. Automated exposure control and iterative reconst ruction technique were employed. The dose-length product was 871.98 mGy-cm. COMPARISON: Chest CT 07/05/2021 FINDINGS: There is moderate emphysema. There is mild atelectasis bilaterally. There are airspace and groundglass opacities in anterior segment left upper lobe, consistent with infarct. A calcified left lung nodule is consistent with old granulomatous disease. No pleural effusion. The heart size is norm al and unchanged. There are acute pulmonary emboli involving all lobes including a saddle embolus in main pulmonary artery. There are surgical changes of the stomach. There are changes of cholecystectom y. There is moderate thoracic spondylosis. There is a chronic compression fracture of T11. There is a chronic compression fracture of L1 with changes of vertebroplasty. IMPRESSION: 1. Acute pulmonary emboli involving all lobes including a saddle embolus in main pulmonary artery. 2. Airspace and groundglass opacities in anterior segment left upper lobe, consistent with infarct. 3. Moderate emphysema. Reviewed, dictated and finalized at location A. IMPRESSION: 1. Acute pulmonary emboli involving all lobes including a saddle embolus in alberto n pulmonary artery. 2. Airspace and groundglass opacities in anterior segment left upper lobe, cons istent with infarct. 3. Moderate emphysema.
--- NOTE | 2021-12-31 00:49 | ECG_ITS ---
Measurements Intervals [place] Rate: 82 P: 51 CO: 148 QRS: -15 QRSD: 93 T: 65 QT: 406 QTc: 476 Interpretive Statements SINUS RHYTHM NORMAL ECG COMPARED TO ECG 07/02/2020 10:59:50 HEART RATE IS REDUCED AT RIGHT BUNDLE BRANCH BLOCK CONDUCTION IS NOT SEEN(RATE DEPENDENT) Electronically Signed On 12-31-2021 14:07:26 CDT by Luis Harrison M.D.
[2021-12-31 01:22] LABS: Basophils Absolute Auto 0.1 K/mm3 (0.0-0.1); Basophils Percent Auto 0.6 % (0.2-1.2); Eosinophils Absolute Auto 0.2 K/mm3 (0-0.3); Eosinophils Percent Auto 2.3 % (0-4.4); Hematocrit 36.8 % (37.0-47.0); Hemoglobin 11.5 g/dL (12.0-15.0); Immature Granulocyte Absolute 0.03 K/mm3 (0.00-0.031); Immature Granulocyte Percent A 0.4 % (0-0.5); Lymphocytes Absolute Auto 2.55 K/mm3 (0.9-3.2); Lymphocytes Percent Auto 32.1 % (18.3-44.2); Mean Corpuscular HGB Conc 31.3 g/dl (32-36); Mean Corpuscular Hemoglobin 26.8 pg (26-34); Mean Corpuscular Volume 85.8 fl (80-100); Monocytes Absolute Auto 0.8 K/mm3 (0.1-0.6); Monocytes Percent Auto 10.6 % (2.6-8.5); Neutrophils Absolute Auto 4.3 K/mm3 (1.3-6.7); Platelet Count Result 216 k/mm3 (150-375); Red Blood Count 4.29 M/mm3 (4.2-5.4); Red Cell Distribution Width 16.1 % (11.5-14.5); White Blood Count 7.9 K/mm3 (4.5-10.0)
[2021-12-31 01:30] LABS: Alanine Aminotransferase 19 U/L (6-35); Albumin Level 3.7 g/dL (3.5-5.1); Alkaline Phosphatase 80 U/L (38-126); Anion Gap 8 mmol/L (8-16); Aspartate Amino Transferase 37 U/L (14-36); Bilirubin,Total 0.6 mg/dL (0.2-1.3); Blood Urea Nitrogen 21 mg/dL (7-17); Calcium 8.8 mg/dL (8.4-10.2); Carbon Dioxide 30 mmol/L (22-30); Chloride 101 mmol/L (98-107); Estimated CRCL calculation 54 ml/min; Estimated Glomerular Filt Rate > 60; Glucose 102 mg/dL (65-110); Lipase 38 U/L (23-300); Sodium 139 mmol/L (137-145)
[2021-12-31 01:36] LABS: INR 1.2; Prothrombin Time 14.6 Seconds (11.1-14.7)
[2021-12-31 01:37] LABS: Partial Thromboplastin Time 29.9 SECONDS (22.3-36.8)
[2021-12-31 01:45] LABS: Troponin I < 0.012 ng/mL (0.000-0.034)
--- NOTE | 2021-12-31 02:28 | ED.CHESTPAIN ---
HPI - Chest Pain General Chief Complaint: Chest Pain <Aayush Diaz MD - Last Filed: 01/01/22 18:58> Stated Complaint: chest pain <Aayush Diaz MD - Last Filed: 01/01/22 18:58> Time Seen by Provider: 12/31/21 02:00 <Aayush Diaz MD - Last Filed: 01/01/22 18:58> Source: patient <Aayush Diaz MD - Last Filed: 01/01/22 18:58> History of Present Illness HPI narrative: Patient presents with left-sided chest pain and shortness of breath. Patient reports her symptoms started around 7:00 this evening has not resolved so she came to the ER for further evaluation. Pain is sharp worse with palpation and deep inspiration, no radiation. She has chronic shortness of breath due to her COPD however shortness of breath is slightly worse with this chest pain. She first felt well earlier in the day. She denies any recent cough, congestion, fevers, nausea, vomiting, abdominal pain, diarrhea. 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 <Aayush Diaz MD - Last Filed: 01/01/22 18:58> Related Data Home Medications: Home Medications Medication Instructions Recorded Confirmed abaloparatide (Tymlos) 80 mcg subcut DAILY 04/05/21 11/12/21 cyanocobalamin (vitamin B-12) 500 500 mcg PO DAILY 10/27/21 11/12/21 mcg tablet docusate sodium 100 mg capsule 100 mg PO DAILY 10/27/21 11/12/21 (Colace) enoxaparin 40 mg/0.4 mL 40 mg subcut Q12H 10/27/21 11/12/21 subcutaneous syringe hydrochlorothiazide 12.5 mg capsule 12.5 mg PO DAILY 11/12/21 11/12/21 omeprazole 40 mg capsule,delayed 40 mg PO BID 11/12/21 11/12/21 release calcium 100 mg capsule 650 mg PO BID 11/18/21 <Aayush Diaz MD - Last Filed: 01/01/22 18:58> Allergies/Adverse Reactions: Allergies Allergy/AdvReac Type Severity Reaction Status Date / Time NSAIDS (Non-Steroidal AdvReac Severe BARIATRIC Verified 12/31/21 01:55 Anti-Inflamma PATIENT <Aayush Diaz MD - Last Filed: 01/01/22 18:58> Review of Systems Review of Systems: CONSTITUTIONAL: Denies fever, chills, or sweats. EYES: Denies visual changes, redness, or discharge. ENT: Denies rhinorrhea, congestion, sore throat, or otalgia. CARDIOVASCULAR: Denies palpitations, or edema. RESPIRATORY: Denies cough GASTROINTESTINAL: Denies abdominal pain, nausea, vomiting, or diarrhea. GENITOURINARY: Denies dysuria or hematuria. SKIN: Denies rash or itching. MUSCULOSKELETAL: Denies back pain, joint pain, or myalgia. NEUROLOGIC: Denies headache, numbness, dizziness, or weakness. PSYCHIATRIC: Denies anxiety or depression. <Aayush Diaz MD - Last Filed: 01/01/22 18:58> All systems reviewed & are unremarkable except as noted in HPI and below <Aayush Diaz MD - Last Filed: 01/01/22 18:58> PMFSH Past Medical History Medical History: Medical History BMI 40.0-44.9, adult Cervical vertebral fusion Hiatal hernia History of tobacco use History of vaginal delivery Hx of pulmonary embolus Hypertension Insulin resistance Nocturnal hypoxia Normal endoscopy Obesity (BMI 30-39.9) <Aayush Diaz MD - Last Filed: 01/01/22 18:58> Surgical History Surgical History: Surgical History H/O kyphoplasty History of appendectomy History of cataract removal with insertion of prosthetic lens History of cholecystectomy History of laminectomy History of total left knee replacement (TKR) S/P gastric bypass [place] teeth removed <Aayush Diaz MD - Last Filed: 01/01/22 18:58> Family History Family History: Family History Father Depression Family history of lung cancer Sibling Family history of lung cancer <Aayush Diaz MD - Last Filed: 01/01/22 18:58> Social History Social History:
[2021-12-31] MEDS: MORPHINE SULFATE (*CRX) 4 MG/ML INJ IV PUSH ×7 (03:23→22:26)
[2021-12-31] MEDS: HEPARIN SOD/D5W 100 UNITS/ML 25,000 UNITS/250 ML BAG 12 UNITS IV CONT (04:00)
[2021-12-31] MEDS: HEPARIN SODIUM 5,000 UNITS/ML VIAL 5500 UNITS IV PUSH (04:02)
[2021-12-31 04:09] LABS: SARS-CoV-2 RNA PCR Negative
[2021-12-31 04:21] LABS: NT Pro B Type Natriuretic Pept 248 pg/mL (5-100)
[2021-12-31] MEDS: POTASSIUM CHLORIDE 20 MEQ PACKET (FOR LIQUID) 40 MEQ PO (04:45)
[2021-12-31 06:48] LABS: Troponin I 0.013 ng/mL (0.000-0.034)
--- NOTE | 2021-12-31 07:26 | PC.NURSE ---
BSSR TO [facility] AGRAWAL
[2021-12-31 09:42] LABS: INR 1.2; Prothrombin Time 14.9 Seconds (11.1-14.7)
[2021-12-31 09:43] LABS: Basophils Absolute Auto 0.1 K/mm3 (0.0-0.1); Basophils Percent Auto 0.7 % (0.2-1.2); Eosinophils Absolute Auto 0.1 K/mm3 (0-0.3); Eosinophils Percent Auto 1.9 % (0-4.4); Hematocrit 36.5 % (37.0-47.0); Hemoglobin 11.2 g/dL (12.0-15.0); Immature Granulocyte Absolute 0.03 K/mm3 (0.00-0.031); Immature Granulocyte Percent A 0.4 % (0-0.5); Lymphocytes Absolute Auto 2.07 K/mm3 (0.9-3.2); Lymphocytes Percent Auto 30.1 % (18.3-44.2); Mean Corpuscular HGB Conc 30.7 g/dl (32-36); Mean Corpuscular Hemoglobin 26.4 pg (26-34); Mean Corpuscular Volume 86.1 fl (80-100); Mean Platelet Volume 10.1 fl (7.4-10.4); Monocytes Absolute Auto 0.8 K/mm3 (0.1-0.6); Monocytes Percent Auto 11.2 % (2.6-8.5); Neutrophils Absolute Auto 3.8 K/mm3 (1.3-6.7); Neutrophils Percent Auto 55.7 % (45.5-73.1); Platelet Count Result 196 k/mm3 (150-375); Red Blood Count 4.24 M/mm3 (4.2-5.4); Red Cell Distribution Width 16.2 % (11.5-14.5); White Blood Count 6.9 K/mm3 (4.5-10.0)
[2021-12-31 09:45] LABS: Partial Thromboplastin Time 110.1 SECONDS (22.3-36.8)
[2021-12-31 09:56] LABS: Troponin I < 0.012 ng/mL (0.000-0.034)
--- NOTE | 2021-12-31 12:02 | PC.NURSE ---
[facility] transfer center called and updated pt real and VS
[2021-12-31] MEDS: PANTOPRAZOLE 40 MG TABLET PO (17:10)
[2021-12-31 17:37] LABS: INR 1.2; Prothrombin Time 14.9 Seconds (11.1-14.7)
--- NOTE | 2021-12-31 17:52 | PC.NURSE ---
no change in heparin dose at this time. verified results and protocol with Rissa Archibald RN
[2021-12-31] MEDS: HYDROmorphone HCL INJ (*CRX) 1 MG/ML SYR 0.5 MG IV PUSH (18:10)
--- NOTE | 2021-12-31 21:01 | PC.NURSE ---
patient received first dose of pantoprazole around 1700. will resume meds BID tomorrow
--- NOTE | 2021-12-31 22:40 | PC.NURSE ---
spoke with berto at [facility] transfer center for update and she states that will possibly have a bed available tomorrow with small chance of bed during the night if the ED clears out
[2021-12-31 23:50] LABS: INR 1.1; Prothrombin Time 14.1 Seconds (11.1-14.7)
[2022-01-01] VITALS (26 sets, daily range): BP systolic 97–132; BP diastolic 54–72; PULSE 67–88; RESP 12–33; O2SAT 95–100
[2022-01-01] MEDS: HEPARIN SODIUM 5,000 UNITS/ML VIAL 2500 UNITS IV PUSH ×2 (00:51→06:08)
[2022-01-01] MEDS: MORPHINE SULFATE (*CRX) 4 MG/ML INJ IV PUSH ×2 (02:31→06:03)
[2022-01-01 05:26] LABS: Basophils Absolute Auto 0.1 K/mm3 (0.0-0.1); Basophils Percent Auto 0.8 % (0.2-1.2); Eosinophils Absolute Auto 0.4 K/mm3 (0-0.3); Eosinophils Percent Auto 5.9 % (0-4.4); Hemoglobin 11.6 g/dL (12.0-15.0); Immature Granulocyte Absolute 0.02 K/mm3 (0.00-0.031); Immature Granulocyte Percent A 0.3 % (0-0.5); Lymphocytes Absolute Auto 1.95 K/mm3 (0.9-3.2); Lymphocytes Percent Auto 32.6 % (18.3-44.2); Mean Corpuscular HGB Conc 31.4 g/dl (32-36); Mean Corpuscular Hemoglobin 27.6 pg (26-34); Mean Corpuscular Volume 87.9 fl (80-100); Mean Platelet Volume 10.7 fl (7.4-10.4); Monocytes Absolute Auto 0.6 K/mm3 (0.1-0.6); Neutrophils Percent Auto 50.4 % (45.5-73.1); Platelet Count Result 198 k/mm3 (150-375); Red Blood Count 4.21 M/mm3 (4.2-5.4)
[2022-01-01 05:39] LABS: INR 1.2; Prothrombin Time 14.4 Seconds (11.1-14.7)
[2022-01-01 05:40] LABS: Partial Thromboplastin Time 66.2 SECONDS (22.3-36.8)
[2022-01-01] MEDS: HEPARIN SOD/D5W 100 UNITS/ML 25,000 UNITS/250 ML BAG 13 UNITS IV CONT (06:09)
== END 2022-01-01 08:22 | disposition short-term general hospital (02) ==
PROVIDERS: Emergency Medicine; General Practice; Emergency Provider Emergency Medicine; PCP Family Medicine
DX: I26.99 Other pulmonary embolism without acute cor pulmonale (principal); Z20.822 Contact with and (suspected) exposure to COVID-19; J44.9 Chronic obstructive pulmonary disease, unspecified; I10 Essential (primary) hypertension; E88.81 Metabolic syndrome and other insulin resistance; E66.9 Obesity, unspecified; Z68.35 Body mass index [BMI] 35.0-35.9, adult; Z98.49 Cataract extraction status, unspecified eye; Z96.1 Presence of intraocular lens; Z96.652 Presence of left artificial knee joint; Z98.84 Bariatric surgery status; Z87.891 Personal history of nicotine dependence; Z86.718 Personal history of other venous thrombosis and embolism; Z86.711 Personal history of pulmonary embolism
CPT/HCPCS: 36415; 71046; 71275; 80053; 83690; 83880; 84484; 85025; 85610; 85730; 93005; 96365; 96375; 96376; 99285; A9270; C9803; J0131; J1170; J1644; J2270; Q9967; U0003; U0005

== ENCOUNTER 2022-04-25 00:55 | Day surgery (SDC) | payer MEDICARE, SELFPAY ==
[2022-04-06 15:45] VITALS: BMI 33.8
--- NOTE | 2022-04-22 16:29 | PM.HPGS ---
History of Present Illness History of Present Illness Consent: Risks, benefits, and alternatives have been discussed and questions answered. Patient agrees to proceed with procedure. Chief complaint: villasenor's esophagus Narrative: Dominga Reynaga is a 71 year old female with a history of Barretts esophagus. Her last EGD was 3 years ago. She is not at this time on a proton pump inhibitor . Six months ago she had a gastric bypass as well as repair of a hiatal hernia. Since then she has not had heartburn and she was told by her surgeon that she would not need to take acid reducers anymore. At the time of her last endoscopy 3 years ago I saw that biopsies were indefinite for dysplasia. Review of Systems Review of Systems: All systems reviewed & are unremarkable except as noted in HPI and below PMFSH Past Medical History Medical History Cervical vertebral fusion Hiatal hernia History of tobacco use History of vaginal delivery Hx of pulmonary embolus Hypertension Insulin resistance Nocturnal hypoxia Normal endoscopy Obesity (BMI 30-39.9) Surgical History Surgical History H/O kyphoplasty History of appendectomy History of cataract removal with insertion of prosthetic lens History of cholecystectomy History of laminectomy History of total left knee replacement (TKR) S/P gastric bypass [place] teeth removed Family History Family History Father Depression Family history of lung cancer Sibling Family history of lung cancer Social History Social History Smoking packs per day: 1 Smoking cigarettes per day: 20.0 Years smoked: 40 Smoking pack-years: 40.00 Smoking status: Former smoker Tobacco type: cigarettes Second hand tobacco smoke exposure: No Smoking end date: 07/24/13 Alcohol intake: current Alcohol use details: Socially Substance use: never Substance use type: does not use Living arrangements: with family Gender identity (if verbalized by the patient): Female Spiritual care concerns: No Agree to blood products: Yes Meds Home Medications and Allergies Home Medications Medication Instructions Recorded Confirmed Type albuterol sulfate 90 mcg/actuation 2 inh inhalation Q4H PRN shortness 08/11/20 04/06/22 Rx aerosol inhaler of breath or wheezing #18 grams budesonide 160 mcg-glycopyr 9 2 inh inhalation BID #32.1 grams 07/26/21 04/06/22 Rx mcg-formot 4.8 mcg/actuation HFA inhaler (Breztri Aerosphere) cyanocobalamin (vitamin B-12) 500 500 mcg PO BID 10/27/21 04/06/22 History mcg tablet docusate sodium 100 mg capsule 100 mg PO BID 10/27/21 04/06/22 History (Colace) hydrochlorothiazide 12.5 mg capsule 12.5 mg PO DAILY PRN other 11/12/21 04/06/22 History calcium 100 mg capsule 650 mg PO BID 11/18/21 04/06/22 History apixaban 5 mg tablet (Eliquis) 5 mg PO BID 03/11/22 04/25/22 History denosumab 60 mg/mL subcutaneous 60 mg subcut [id number] 04/06/22 04/06/22 History syringe (Prolia) [id number]-Ca carb-vit K 1 tablet PO DAILY 04/06/22 04/06/22 History 18 mg iron-400 mcg-500 mg tablet polysaccharide iron complex 150 mg 150 mg PO 2XW 04/06/22 04/06/22 History iron capsule (Ferrex) Allergies Allergy/AdvReac Type Severity Reaction Status Date / Time NSAIDS (Non-Steroidal AdvReac Severe BARIATRIC Verified 04/25/22 06:25 Anti-Inflamma PATIENT Exam Const: General: alert Orientation/consciousness: patient oriented x3 Resp: Auscultation: clear to auscultation bilaterally Cardio: Rhythm: regular rhythm GI: GI Palp: Yes Soft to palpation and No Tenderness to palpation present (GI) Neuro: General: patient oriented x3 Assessment and Plan Assessment and plan (1) Barretts esophagus: Qualifiers: Villasenor'
[2022-04-25 06:27] VITALS: BP 143/76; PULSE 63; RESP 18; TEMP 36.1; O2SAT 98
[2022-04-25] MEDS: LACTATED RINGERS 1,000 ML 150 ML IV CONT (06:38)
--- NOTE | 2022-04-25 07:20 | WPDANESEPPF ---
Anes - Initial Pre Proc Eval Procedure: Operation Date: 04/25/22 07:30 Proposed Procedures p Esophagogastroduodenoscopy - Lele Hoyt MD Date/Time: 04/25/22 07:20 Surgeon: Lele Hoyt MD Pre Op Diagnosis: villasenor's esophagus Patient Data Age: 71 Gender: F Height: 1.57 m Weight: 85.8 kg Last Vital Signs Temp 97 F L 04/25/22 06:27 Pulse 63 04/25/22 06:27 Resp 18 04/25/22 06:27 BP 143/76 H 04/25/22 06:27 Pulse Ox 98 04/25/22 06:27 O2 Del Method Room Air 04/25/22 06:27 Allergies Allergy/AdvReac Type Severity Reaction Status Date / Time NSAIDS (Non-Steroidal AdvReac Severe BARIATRIC Verified 04/25/22 06:25 Anti-Inflamma PATIENT Home Medications Medication Instructions Recorded Confirmed Type albuterol sulfate 90 mcg/actuation 2 inh inhalation Q4H PRN shortness 08/11/20 04/06/22 Rx aerosol inhaler of breath or wheezing #18 grams budesonide 160 mcg-glycopyr 9 2 inh inhalation BID #32.1 grams 07/26/21 04/06/22 Rx mcg-formot 4.8 mcg/actuation HFA inhaler (Breztri Aerosphere) cyanocobalamin (vitamin B-12) 500 500 mcg PO BID 10/27/21 04/06/22 History mcg tablet docusate sodium 100 mg capsule 100 mg PO BID 10/27/21 04/06/22 History (Colace) hydrochlorothiazide 12.5 mg capsule 12.5 mg PO DAILY PRN other 11/12/21 04/06/22 History calcium 100 mg capsule 650 mg PO BID 11/18/21 04/06/22 History apixaban 5 mg tablet (Eliquis) 5 mg PO BID 03/11/22 04/25/22 History denosumab 60 mg/mL subcutaneous 60 mg subcut [id number] 04/06/22 04/06/22 History syringe (Prolia) amnoolik-slp-hknz-FA-Ca carb-vit K 1 tablet PO DAILY 04/06/22 04/06/22 History 18 mg iron-400 mcg-500 mg tablet polysaccharide iron complex 150 mg 150 mg PO 2XW 04/06/22 04/06/22 History iron capsule (Ferrex) Patient hx anesthesia problems: none Family hx anesthesia problems: none Results Review: All pre-operative results and documents have been reviewed as part of the pre-operative evaluation. [facility] Past Medical History Medical History Cervical vertebral fusion Hiatal hernia History of tobacco use History of vaginal delivery Hx of pulmonary embolus Hypertension Insulin resistance Nocturnal hypoxia Normal endoscopy Obesity (BMI 30-39.9) Surgical History Surgical History H/O kyphoplasty History of appendectomy History of cataract removal with insertion of prosthetic lens History of cholecystectomy History of laminectomy History of total left knee replacement (TKR) S/P gastric bypass [place] teeth removed Family History Family History Father Depression Family history of lung cancer Sibling Family history of lung cancer Social History Social History Smoking packs per day: 1 Smoking cigarettes per day: 20.0 Years smoked: 40 Smoking pack-years: 40.00 Smoking status: Former smoker Tobacco type: cigarettes Second hand tobacco smoke exposure: No Smoking end date: 07/24/13 Alcohol intake: current Alcohol use details: Socially Substance use: never Substance use type: does not use Living arrangements: with family Gender identity (if verbalized by the patient): Female Spiritual care concerns: No Agree to blood products: Yes Anes - Eval Final PreProcedure Day of Procedure 04/25/22 07:20 Patient weight: obese Heart: regular rate and rhythm Lungs: clear to auscultation Airway: Mallampati scale class II Neurological: alert and oriented Last oral intake: >/= 8 hours ASA classification: III Emergent: no Anesthetic plan: proceed Anesthesia type and monitoring: general GIVS and standard monitoring Results Review: All pre-operative results and documents have been reviewed as part of the pre-operative evaluation.
[2022-04-25 07:44] VITALS: BP 107/63; PULSE 66; RESP 20; O2SAT 99
[2022-04-25 07:54] VITALS: BP 120/58; PULSE 57; RESP 20; O2SAT 100
[2022-04-25 08:04] VITALS: BP 129/64; PULSE 49; RESP 17; O2SAT 100
== END 2022-04-25 08:16 | disposition home or self-care (01) ==
PROVIDERS: PCP Family Medicine; Visit Provider Internal Medicine Gastroenterology
PROC: 0DJ08ZZ Inspection of Upper Intestinal Tract, Via Natural or Artificial Opening Endoscopic (ICD-10-PCS; CPT 43235; principal; 2022-04-25 07:30)
DX: K22.70 Barrett's esophagus without dysplasia (principal); Z98.84 Bariatric surgery status; K21.9 Gastro-esophageal reflux disease without esophagitis; Z79.01 Long term (current) use of anticoagulants; Z79.51 Long term (current) use of inhaled steroids; I10 Essential (primary) hypertension; R09.02 Hypoxemia; Z98.1 Arthrodesis status; Z90.49 Acquired absence of other specified parts of digestive tract; Z87.891 Personal history of nicotine dependence; E66.9 Obesity, unspecified; Z68.34 Body mass index [BMI] 34.0-34.9, adult
CPT/HCPCS: 43239; 88305; J2704; J7120

== ENCOUNTER 2022-07-06 08:55 | Outpatient (CLI) | payer MEDICARE, SELFPAY ==
--- NOTE | ~2022-07-06 | CT_ITS ---
"EXAMINATION: CT lung screening DATE: 07/06/2022 09:46 INDICATION: Personal history of nicotine dependence, prior smoker with 30 pack year history TECHNIQUE: Computed tomography (CT) of the chest was performed without intravenous contrast. The dose -length product (DLP) was 108.21 mGy-cm. 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 COMPARISON: 12/31/2021, 07/05/2021 FINDINGS: There is moderate emphysema. Calcified pulmonary nodules are consistent with old granulomat ous disease. There is mild dependent atelectasis. No pleural effusion or pneumothorax. No pathologica lly enlarged thoracic lymph nodes are identified. The heart size is normal. There are surgical change s at the gastroesophageal junction. The gallbladder is surgically absent. There is a chronic compress ion fracture of T11. Vertebroplasty changes noted at L1. IMPRESSION: 1. Lung-RADS category 1: Negative. Continue annual screening with noncontrast low-dose chest CT in 12 months. Reviewed, dictated and finalized at location A. T EFFECTS SPECIALIST IMPRESSION: 1. Lung-RADS category 1: Negative. Continue annual screening with noncontrast l ow-dose chest CT in 12 months."
== END 2022-07-06 08:56 | disposition home or self-care (01) ==
PROVIDERS: PCP Family Medicine; Visit Provider Physician Assistant
DX: Z12.2 Encounter for screening for malignant neoplasm of respiratory organs (principal); Z87.891 Personal history of nicotine dependence
CPT/HCPCS: 71271

== ENCOUNTER 2022-09-10 10:30 | Outpatient (CLI) | payer MEDICARE, SELFPAY ==
--- NOTE | ~2022-09-10 | MR_ITS ---
MRI of the thoracic spine Clinical History: Compression fracture Technique: Axial T2-weighted and gradient images, and sagittal T1-weighted, T2-weighted, and STIR tiago ges were acquired. Findings: There is a mild chronic compression fracture of T11, with loss of height at the superior th e region, but no marrow edema. There is an additional chronic mild to moderate compression fracture o f L1, with vertebroplasty cement present. No other fracture or subluxation identified in the visualiz ed spine. No suspicious bone marrow signal abnormality identified. No significant disc bulge or herniation identified in the thoracic spine. No spinal canal stenosis or cord compression identified. Paravertebral soft tissues are unremarkable. Impression: Mild chronic compression fracture of T11. Chronic mild to moderate compression fracture of L1, with vertebroplasty cement. Reviewed, dictated and finalized at [facility]. 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 Chronic mild to moderate compression fracture of L1, with vertebroplasty cement .
== END 2022-09-10 10:31 | disposition home or self-care (01) ==
PROVIDERS: PCP Family Medicine; Visit Provider Physical Medicine & Rehabilitation
DX: M54.6 Pain in thoracic spine (principal); M48.54XA Collapsed vertebra, not elsewhere classified, thoracic region, initial encounter for fracture; M48.56XA Collapsed vertebra, not elsewhere classified, lumbar region, initial encounter for fracture
CPT/HCPCS: 72146

== ENCOUNTER → 2022-10-06 11:08 | Outpatient (CLI) | payer MEDICARE, SELFPAY ==
--- NOTE | ~2022-10-06 | XR_ITS ---
EXAMINATION:XR_[id number]_CR DATE: 10/06/2022 11:41 INDICATION: Cervical spondylosis and right shoulder pain TECHNIQUE: AP, lateral, lateral swimmers and odontoid views of the cervical spine are provided. COMPARISON: None FINDINGS: Anterior fusion at C5-C6. Alignment is normal. Odontoid is intact. Mild atlantoaxial osteoarthritis. Unfused vertebral body heights are normal. Moderate disc height loss at C4-C5 with severe bilateral u ncovertebral osteoarthritis. Severe osteoarthritis on the left at C2-C3 with additional multilevel mo derate bilateral cervical facet osteoarthritis. Visualized apices of lungs are clear. Prevertebral s oft tissues are normal. IMPRESSION: 1. Moderate cervical spondylosis with anterior fusion at C5-C6. Reviewed, dictated and finalized at location L.
--- NOTE | ~2022-10-06 | XR_ITS ---
Right Shoulder Technique: AP and scapular Y views were obtained. Clinical History: Osteoarthritis Findings: No fracture or dislocation is seen. Osseous alignment is anatomic. Minimal degenerative carla nge of the acromio clavicular and glenohumeral joints noted. Ovoid calcific density at the rotator cu ff insertion is consistent with calcific tendinitis. Impression: Calcific tendinitis of the rotator cuff. Minimal degenerative change of the glenohumeral and acromial clavicular joints. Reviewed, dictated and finalized at location M. Impression: Calcific tendinitis of the rotator cuff. Minimal degenerative change of the glenohumeral and acromial clavicular joints.
== END ==
PROVIDERS: PCP Family Medicine; Visit Provider Physical Medicine & Rehabilitation
DX: M43.02 Spondylolysis, cervical region (principal); M19.90 Unspecified osteoarthritis, unspecified site; M75.81 Other shoulder lesions, right shoulder
CPT/HCPCS: 72040; 73030

== ENCOUNTER 2022-11-15 10:12 | Outpatient (CLI) | payer MEDICARE, SELFPAY ==
--- NOTE | ~2022-11-15 | MM_ITS ---
EXAMINATION: MM screening jose luis BI w chuyita HISTORY: Screening mammogram TECHNIQUE: Craniocaudal and mediolateral oblique 3-D tomosynthesis images were obtained and synthetic 2-D images were generated. CAD analysis was submitted and interpreted. COMPARISON: November 20, 2020, June 13, 2016 and lateral screening mammogram examinations BREAST PARENCHYMAL COMPOSITION: The breasts are almost entirely fatty. FINDINGS: Occasional bilateral benign calcifications. There is no evidence of suspicious mass, calcif ication, or architectural distortion to suggest malignancy in either breast. There has been no suspic ious interval change. IMPRESSION: 1. No mammographic evidence of malignancy. 2. Recommend routine screening mammography in one year. BI-RADS Category 1: Negative....... Reviewed, dictated and finalized at location A.
== END 2022-11-15 10:13 | disposition home or self-care (01) ==
PROVIDERS: PCP Family Medicine; Visit Provider Family Medicine
DX: Z12.31 Encounter for screening mammogram for malignant neoplasm of breast (principal)
CPT/HCPCS: 77063; 77067

== ENCOUNTER 2023-07-07 10:35 | Outpatient (CLI) | payer MEDICARE, SELFPAY ==
--- NOTE | ~2023-07-07 | CT_ITS ---
CT Scan of the Chest without Contrast: Clinical Indication: Lung cancer screening, personal history of nicotine dependence Technique: Contiguous sections were acquired throughout the chest without intravenous contrast. Dose reduction technique was used on this scan by utilizing automated exposure control and iterative recon struction technique. The dose-length product (DLP) was 83.78 mGy-cm. COMPARISON: 07/06/2022 Findings: There is no evidence of any significant mediastinal, hilar or axillary lymphadenopathy. There are ath erosclerotic calcifications of the aorta and coronary arteries. There is no evidence of pleural or pericardial effusion. Calcified left upper lobe granulomas noted. Moderate emphysema present. Images through the upper abdomen reveal no abnormalities. Stable compression fractures of T11 and L1 noted. Impression: Lung RADS 2: Benign appearance. 12 month follow-up screening CT advised. Moderate emphysema. Reviewed, dictated and finalized at [facility]. 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 12 month follow-up screening CT advised. Moderate emphysema.
== END 2023-07-07 10:36 | disposition home or self-care (01) ==
PROVIDERS: PCP Family Medicine; Visit Provider Physician Assistant
DX: Z12.2 Encounter for screening for malignant neoplasm of respiratory organs (principal); J43.9 Emphysema, unspecified; Z87.891 Personal history of nicotine dependence
CPT/HCPCS: 71271

== ENCOUNTER 2023-10-04 08:22 | Outpatient (CLI) | payer MEDICARE, SELFPAY ==
[2023-10-04 08:30] VITALS: PULSE 60; O2SAT 94
[2023-10-04 08:35] VITALS: PULSE 84; O2SAT 87
[2023-10-04 08:40] VITALS: PULSE 86; O2SAT 88
[2023-10-04 08:45] VITALS: PULSE 88; O2SAT 90
[2023-10-04 09:00] VITALS: PULSE 62; O2SAT 95
--- NOTE | 2023-10-04 09:03 | HOMEO2EVAL ---
Evaluation was performed at [facility] Home Oxygen Evaluation RC: Home Oxygen (O2) Evaluation Start: 10/04/23 09:00 Freq: Status: Active Protocol: RPE Activity Type Activity Date Activity User E-sign Co-sign Detail Recorded Client Recorded Date Recorded By Document 10/04/23 08:30 [email or web address] [email or web address] 10/04/23 09:02 DJO Document 10/04/23 08:35 [email or web address] [email or web address] 10/04/23 09:02 DJO Document 10/04/23 08:40 [email or web address] [email or web address] 10/04/23 09:02 DJO Document 10/04/23 08:45 [email or web address] [email or web address] 10/04/23 09:02 DJO Document 10/04/23 09:00 [email or web address] [email or web address] 10/04/23 09:02 DJO 10/04/23 10/04/23 10/04/23 08:30 08:35 08:40 Home O2 Evaluation [Oxygen] -Test Phase Resting Exercise Exercise -Oxygen Delivery Room Air Room Air Nasal Cannula -Oxygen Flow Rate (L/min) 1 [Pulse Oximetry] -Pulse Oximetry (90-100 %) 94 87 L 88 L [Pulse Rate] -Pulse Rate (60-100 beats/min) 60 84 86 [Charges] -Evaluation Charges O2 Evaluation by Pulmonary 10/04/23 10/04/23 08:45 09:00 Home O2 Evaluation [Oxygen] -Test Phase Exercise Resting -Oxygen Delivery Nasal Cannula Room Air -Oxygen Flow Rate (L/min) 2 [Pulse Oximetry] -Pulse Oximetry (90-100 %) 90 95 [Pulse Rate] -Pulse Rate (60-100 beats/min) 88 62 [Charges] -Evaluation Charges
== END 2023-10-04 08:23 | disposition home or self-care (01) ==
LOC: ANHPFT 08:23
PROVIDERS: PCP Family Medicine; Visit Provider Physician Assistant
DX: J43.9 Emphysema, unspecified (principal); Z86.711 Personal history of pulmonary embolism
CPT/HCPCS: 94618

== ENCOUNTER 2023-12-19 12:36 | Outpatient (CLI) | payer MEDICARE, SELFPAY ==
--- NOTE | ~2023-12-19 | MR_ITS ---
EXAMINATION: MR thoracic spine wo con DATE: 12/19/2023 13:15 INDICATION: Thoracic back pain. TECHNIQUE: Magnetic resonance imaging (MRI) of the thoracic spine was performed without intravenous c ontrast. Sagittal localizer T1-weighted FSE of the cervical spine was obtained. Thoracic spine sequen faustino included sagittal T2-weighted FSE, sagittal T1-weighted FSE, sagittal T2-weighted FS FSE, and axi al T2-weighted FSE. COMPARISON: Thoracic spine MRI 09/10/2022 FINDINGS: There is 11 degrees dextroscoliosis of thoracic spine. There is kyphosis of thoracic spine. There is mild chronic anterior wedging of T4, T5, T6, and T7 vertebral bodies. There are chronic com pression fractures of T11 and L1 with changes of vertebroplasty at L1. There is mild chronic anterior wedging of L2. There is mildly decreased disc height at multiple levels. There is moderately decreas ed disc height at T5-T6 and severely decreased disc height at L1-L2. There is multilevel facet joint osteoarthritis, severe at many levels. There is mild neural foraminal stenosis at multiple levels cinthia aterally. At T3-T4, there is a central extrusion mild central canal stenosis. The discs are bulging f rom T10-T11 through L2-L3 with mild central canal stenosis. The spinal cord signal intensity is brittaney l. The conus medullaris is at L1. IMPRESSION: 1. Moderate thoracic spondylosis. 2. Thoracic dextroscoliosis and kyphosis. Reviewed, dictated and finalized at location A.
== END 2023-12-19 12:37 ==
LOC: MICIMG 12:37
PROVIDERS: PCP Family Medicine; Visit Provider Physical Medicine & Rehabilitation Pain Medicine
DX: M54.6 Pain in thoracic spine (principal); M43.04 Spondylolysis, thoracic region; M41.84 Other forms of scoliosis, thoracic region
CPT/HCPCS: 72146

== ENCOUNTER 2024-01-26 08:34 | Emergency (ER) | payer MEDICARE, SELFPAY ==
--- NOTE | ~2024-01-26 | XR_ITS ---
EXAMINATION: XR wrist RT min 3V DATE: 01/26/2024 09:01 INDICATION: Right wrist pain. Fall. TECHNIQUE: 4 views of right wrist were obtained. COMPARISON: Right thumb radiographs 10/18/2007 FINDINGS: Bone alignment is normal. No fracture. There is severe osteoarthritis of distal radioulnar joint, mild osteoarthritis of triscaphe joint, and severe osteoarthritis of first carpometacarpal cecelia nt. There is mild osteoarthritis of first and second metacarpophalangeal joints. IMPRESSION: 1. Polyarticular osteoarthritis. Reviewed, dictated and finalized at location A.
[2024-01-26 08:41] VITALS: BP 118/74; PULSE 75; RESP 16; TEMP 37.3; O2SAT 100
--- NOTE | 2024-01-26 08:55 | ED.UPPEXIN ---
HPI - Extremity Injury (Upper) General Chief Complaint: Extremity Injury, Upper Stated Complaint: R WRIST INJURY Time Seen by Provider: 01/26/24 08:50 Source: patient and RN notes reviewed Mode of arrival: ambulatory Limitations: no limitations History of Present Illness HPI narrative: Patient presents today with a right wrist injury. Yesterday while pulling leads she fell forward, hyper flexing her wrist. Denies numbness or tingling. Currently rates her pain 3/10 at rest, but this increases with movement. She did apply ice and took some hydrocodone at home yesterday with mild relief. Related Data Home Medications Medication Instructions Recorded Confirmed cyanocobalamin (vitamin B-12) 500 500 mcg PO BID 10/27/21 01/26/24 mcg tablet docusate sodium 100 mg capsule 100 mg PO BID 10/27/21 01/26/24 (Colace) calcium 100 mg capsule 650 mg PO BID 11/18/21 01/26/24 apixaban 5 mg tablet (Eliquis) 5 mg PO BID 03/11/22 01/26/24 denosumab 60 mg/mL subcutaneous 60 mg subcut [id number] 04/06/22 01/26/24 syringe (Prolia) omeprazole 20 mg capsule,delayed 20 mg PO DAILY 09/07/22 01/26/24 release tizanidine 4 mg capsule 4 mg PO QHS PRN Spasms 09/07/22 01/26/24 tramadol 50 mg tablet 50 mg PO Q6H PRN Pain 09/07/22 01/26/24 hydrocodone 5 mg-acetaminophen 325 1 tablet DIRECTED 01/26/24 01/26/24 mg tablet Allergies Allergy/AdvReac Type Severity Reaction Status Date / Time NSAIDS (Non-Steroidal AdvReac Severe BARIATRIC Verified 12/19/23 11:07 Anti-Inflamma PATIENT Review of Systems Review of Systems: CONSTITUTIONAL: Denies body aches, fever, chills, or sweats. EYES: Denies visual changes, redness, or discharge. ENT: Denies rhinorrhea, congestion, sore throat, or otalgia. CARDIOVASCULAR: Denies chest pain, palpitations, or edema. RESPIRATORY: Denies cough or dyspnea. GASTROINTESTINAL: Denies abdominal pain, nausea, vomiting, or diarrhea. GENITOURINARY: Denies dysuria or hematuria. SKIN: Denies rash, itching, or wounds. MUSCULOSKELETAL: Denies back pain, or myalgia. + right wrist injury NEUROLOGIC: Denies headache, numbness, tingling, or weakness. PSYCH: Denies depression or anxiety. [facility] Past Medical History Medical History Cervical vertebral fusion Hiatal hernia History of tobacco use History of vaginal delivery Hx of pulmonary embolus Hypertension Insulin resistance Nocturnal hypoxia Normal endoscopy Obesity (BMI 30-39.9) Surgical History Surgical History H/O gastric bypass H/O kyphoplasty History of appendectomy History of cataract removal with insertion of prosthetic lens History of cholecystectomy History of laminectomy History of total left knee replacement (TKR) S/P gastric bypass [place] teeth removed Family History Family History Father Depression Family history of lung cancer Sibling Family history of lung cancer Social History Social History Smoking packs per day: 1 Smoking cigarettes per day: 20.0 Years smoked: 40 Smoking pack-years: 40.00 Smoking status: Former smoker Tobacco type: cigarettes Second hand tobacco smoke exposure: No Smoking end date: 07/24/13 Alcohol intake: current Alcohol use details: Socially Substance use: never Substance use type: does not use Lack of Transportation: No Lack of Food: Never True Current Housing: I Have Housing Concerned About Future Housing: No Difficulty Paying Gas/Electric Bills: No Difficulty Paying for Meds: No Currently Unemployed: No Education: High School Diploma/GED Difficulty w/ Childcare or Family Care: No Living arrangements: with family Occupation/Education: occupation Gender identity (if verbalized by the patient): Female Sexual Tully
== END 2024-01-26 09:22 | disposition home or self-care (01) ==
PROVIDERS: Emergency Provider Nurse Practitioner; PCP Family Medicine
DX: S63.501A Unspecified sprain of right wrist, initial encounter (principal); W19.XXXA Unspecified fall, initial encounter; Y93.H2 Activity, gardening and landscaping; Z87.891 Personal history of nicotine dependence; I10 Essential (primary) hypertension; E66.9 Obesity, unspecified; Z68.28 Body mass index [BMI] 28.0-28.9, adult; Z98.84 Bariatric surgery status; Z96.652 Presence of left artificial knee joint
CPT/HCPCS: 73110; 99213; G0463

== ENCOUNTER 2024-04-02 09:46 | Outpatient (CLI) | payer MEDICARE, SELFPAY ==
--- NOTE | ~2024-04-02 | MM_ITS ---
EXAMINATION: MM screening jose luis BI w chuyita HISTORY: Screening mammogram TECHNIQUE: Craniocaudal and mediolateral oblique 3-D tomosynthesis images were obtained and synthetic 2-D images were generated. CAD analysis was submitted and interpreted. COMPARISON: 11/15/2022, 11/20/2020 BREAST PARENCHYMAL COMPOSITION:Not Dense. The breasts are almost entirely fatty FINDINGS: No suspicious mass, calcification, or architectural distortion are identified in either stephanie ast to suggest malignancy. There has been no suspicious interval change. IMPRESSION: No mammographic evidence of malignancy. Recommend routine screening mammography in one year. BI-RADS Category 1: Negative Reviewed, dictated and finalized at location .
== END 2024-04-02 09:47 | disposition home or self-care (01) ==
LOC: ANHIMG 09:48
PROVIDERS: PCP Family Medicine; Visit Provider Family Medicine
DX: Z12.31 Encounter for screening mammogram for malignant neoplasm of breast (principal)
CPT/HCPCS: 77063; 77067

== ENCOUNTER 2025-04-10 12:38 | Emergency (ER) | payer MEDICARE, SELFPAY ==
--- OUTSIDE RECORDS SUMMARY | 2025-04-09 08:49 | XMS_ITS | Encounter Summary ---
Author Organization [facility] Healthcare Address [address] [place] [address] Care Team Providers Care Supervising Floorperson Name Role Phone Sonya Cabezas MD Primary Care Provider [phone] Hitesh Perdue MD Unavailable [phone] Matthew Palmer NP Unavailable [phone] Reason for Referral * Procedure (Routine) - Pending Review Specialty Diagnoses / Procedures Referred By Contac t Referred To Contact Diagnoses Myalgia Procedures [place] [address] [facility] [address] [place] [address] Phone: tel: fax: [facility] [address] [place] [address] Phone: tel: fax: Referral ID Status Reason Start Date Expiration Date V isits Requested Visits Authorized [id number] Pending Review 04/09/2025 05/09/2026 1 1 * Procedure (Routine) - Pending Review Specialty Diagnoses / Procedures Referred By Contac t Referred To Contact Diagnoses Myalgia Procedures [place] [address] [address] [address] [place] [address] Phone: tel: fax: [facility] [place] [address] Phone: tel: fax: Referral ID Status Reason Start Date Expiration Date V isits Requested Visits Authorized [id number] Pending Review 04/09/2025 05/09/2026 1 1 * Diagnostic Imaging (Routine) - Closed Specialty Diagnoses / Procedures Referred By Contac t Referred To Contact Diagnoses Thoracic spondylosis 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 Procedures Imaging Peripheral Nerve Stim Placement (90088) Matthew Palmer NP [id number] [place] [address] Phone: tel: fax: [place] [address] Phone: tel: fax: Referral ID Status Reason Start Date Expiration Date Visits Re quested Visits Authorized [id number] Closed 03/11/2025 04/10/2026 1 1 Reason for Visit * Diagnostic Imaging (Routine) - Closed Specialty Diagnoses / Procedures Referred By Contac t Referred To Contact Diagnoses Thoracic spondylosis 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 Procedures Imaging Peripheral Nerve Stim Placement (55429) Matthew Palmer NP [id number] [place] [address] Phone: tel: fax: [facility] [place] [address] Phone: tel: fax: Referral ID Status Reason Start Date Expiration Date Visits Re quested Visits Authorized [id number] Closed 03/11/2025 04/10/2026 1 1 Encounter Details Date Type Department Care Team (Late st Contact Info) Description 04/09/2025 8:49 AM CDT - 04/09/2025 11:59 PM CDT Hospital Encounter [facility] [address] [place] [address] [place] [id number] [facility] [address] [place] [address] Myalgia (Primary Dx); Thoracic spondylosis; 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 2-3 times a week 10/21/2021 Average Number of Drinks Not on file 022 Q3: How often do you have si x or more drinks on one occasion? 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 Gender Identity Not on file Sexual Orientation Not on file documented as of this encounter Medications at Time of Discharge albuterol HFA (PROVENTIL HFA,VENTOLIN HFA,PROAIR HFA) 90 mcg/actuation inhalerIndication s:Chronic Obstructive Pulmonary Disease Inhale 2 puffs as needed 08/11/2020 amoxicillin 500 mg capsule 03/22/2023 apixaban (ELIQUIS) 5 mg tablet 01/02/2022 budesonide-glycop yr-formoterol (Breztri Aerosphere) 160-9-4.8 mcg/actuation HFA aerosol inhalerIndication s:Bronchospasm Prevention with COPD Inhale 2 puffs 2 (two) times a day CALCIUM CITRATE-VITAMIN D3 ORAL Calcium Citrate + D cyanocobalamin (Vitamin B-12) 500 mcg tablet Take 1 tablet (500 mcg total) by mouth every morning denosumab (Prolia) 60 mg/mL syringe Inject 1 mL as needed by subcutaneous route. docusate sodium (COLACE) 100 mg capsuleIndication s:constipation Take 1 capsule (100 mg total) by mouth 2 (two) times a day 30 capsule 10/22/2021 fluticasone propionate (FLONASE) 50 mcg/actuation nasal spray USE 1 SPRAY(S) IN EACH NOSTRIL EVERY 12 HOURS 02/26/2023 hydroCHLOROthiazi de (MICROZIDE) 12.5 mg capsule every other day 10/09/2023 HYDROcodone-aceta minophen (NORCO) 5-325 mg per tabletIndications :Pain Take 1 tablet by mouth daily as needed for pain 30 tablet 02/19/2025 multivitamin tabletIndications :Vitamin Deficiency Prevention Take 1 tablet by mouth 2 (two) times a day 60 tablet 5 10/22/2021 omeprazole (PriLOSEC) 20 mg capsule 06/08/2022 potassium chloride ER 10 mEq CR capsule TAKE 1 CAPSULE BY MOUTH EVERY OTHER DAY 09/12/2022 tiZANidine (ZANAFLEX) 4 mg tablet TAKE 1 TO 2 TABLETS BY MOUTH EVERY DAY AT BEDTIME 09/26/2022 documented as of this encounter Discharge Disposition Disposition Code Departure Means Destination Discharge to home or self care documented in this encounter Plan of Treatment Scheduled Orders Name Type Priority Associated Diagnoses Order Schedule Imaging Peripheral Nerve Stim Placement (90442) Imaging Schedule Routine, Read Routine (OP Routine) Thoracic spondylosis 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 Once for 1 Occurrences starting 04/09/2025 until 04/09/2025 TRIGGER POINT INJECTION Procedures Routine Myalgia 1 Occurrences starting 04/09/2025 until 04/09/2026 TRIGGER POINT INJECTION Procedures Routine Myalgia Once for 1 Occurrences starting 04/09/2025 until 04/09/2025 documented as of this encounter Visit Diagnoses Diagnosis Myalgia- Primary Unspecified myalgia and myositis Thoracic spondylosis 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
--- OUTSIDE RECORDS SUMMARY | 2025-04-09 08:49 | XMS_ITS | Encounter Summary ---
Author Organization [facility] Healthcare Address [address] [place] [address] Care Team Providers Care Sleeve Setter Name Role Phone Sonya Cabezas MD Primary Care Provider [phone] Hitesh Perdue MD Unavailable [phone] Matthew Palmer NP Unavailable [phone] Reason for Referral * Procedure (Routine) - Pending Review Specialty Diagnoses / Procedures Referred By Contac t Referred To Contact Diagnoses Myalgia Procedures [place] [address] [place] [address] Phone: tel: fax: [facility] [address] [place] [address] Phone: tel: fax: Referral ID Status Reason Start Date Expiration Date V isits Requested Visits Authorized [id number] Pending Review 04/09/2025 05/09/2026 1 1 * Procedure (Routine) - Pending Review Specialty Diagnoses / Procedures Referred By Contac t Referred To Contact Diagnoses Myalgia Procedures [place]GER [place] [address] [place] [address] Phone: tel: fax: [facility] [place] [address] Phone: tel: fax: Referral ID Status Reason Start Date Expiration Date V isits Requested Visits Authorized [id number] Pending Review 04/09/2025 05/09/2026 1 1 * Diagnostic Imaging (Routine) - Closed Specialty Diagnoses / Procedures Referred By Contac t Referred To Contact Diagnoses Thoracic spondylosis 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 Procedures Imaging Peripheral Nerve Stim Placement (30872) Matthew Palmer NP [id number] [place] [address] Phone: tel: fax: [place] [address] Phone: tel: fax: Referral ID Status Reason Start Date Expiration Date Visits Re quested Visits Authorized [id number] Closed 03/11/2025 04/10/2026 1 1 Reason for Visit * Diagnostic Imaging (Routine) - Closed Specialty Diagnoses / Procedures Referred By Contac t Referred To Contact Diagnoses Thoracic spondylosis 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 Procedures Imaging Peripheral Nerve Stim Placement (40238) Matthew aPlmer [place] [id number] [place] [address] Phone: tel: fax: [facility] [place] [address] Phone: tel: fax: Referral ID Status Reason Start Date Expiration Date Visits Re quested Visits Authorized [id number] Closed 03/11/2025 04/10/2026 1 1 Encounter Details Date Type Department Care Team (Late st Contact Info) Description 04/09/2025 8:49 AM CDT - 04/09/2025 11:59 PM CDT Hospital Encounter [facility] [address] [place] [address] [place] [address] [facility] [address] [place] [address] Myalgia (Primary Dx); Thoracic spondylosis; Degeneration of [...] on file 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 Gender Identity Not on file Sexual Orientation [...] Order Schedule Imaging Peripheral Nerve Stim Placement (87048) Imaging Schedule Routine, Read Routine (OP Routine) [...] myelopathy documented in this encounter Care Teams Sleeve Setter Relationship Specialty Start Date End Date Sonya Cabezas MD PCP - General Family Medicine 04/10/24 [place] [address] [facility] [address] [place] [address] Consulting Physician Pain Management 03/11/25 [place] [address] [facility] [address] [place] [address] Nurse Practitioner Nurse Practitioner 03/11/25 documented as of this encounter
--- NOTE | ~2025-04-10 | CT_ITS ---
EXAMINATION: CT brain wo gregor, 04/10/2025 13:15 CDT HISTORY: fall COMPARISON: No comparisons available. Technique: Axial images obtained of the brain without contrast. One or more of the following dose reduction techniques were used: automated exposure control, adjustment of the mA and/or kV according to patient size, use of iterative reconstruction technique. Findings: No acute infarct or parenchymal hemorrhage. No abnormal mass or mass effect. No midline shift. No extra-axial fluid collections. No hydrocephalus. Mastoid air cells unremarkable. Sinuses and orbits unremarkable. No acute fracture. No significant facial or scalp soft tissue swelling evident. No radiopaque foreign body is seen. Impression: 1.No acute intracranial abnormality. Reviewed, dictated and finalized at location A. Impression: 1.No acute intracranial abnormality.
--- NOTE | ~2025-04-10 | XR_ITS ---
EXAMINATION: XR sacrum coccyx min 2V DATE: 04/10/2025 13:36 INDICATION: Sacrococcygeal trauma post fall TECHNIQUE: AP view of the sacrum, AP view of the coccyx and lateral view of the sacrum and coccyx were obtained. COMPARISON: CT dated 07/02/2020 FINDINGS: There is a and discontinuity with 3 mm separation of the anterior cortical line of the sacrum at the level of S5-S6 consistent with minimally displaced fracture. Bone alignment is otherwise normal. No other fractures identified. Mild bilateral hip and sacroiliac osteoarthritis. Severe lumbar spondylosis with likely fusion across the L4-L5 disc space. Surgical clip in the central pelvis. Power supply projecting over the posterior left lumbar paraspinal subcutaneous tissues with stimulator leads extending suggestion of a suture line near the tip the cecum. Beyond the cephalad margin of the [id number]. IMPRESSION: 1. Minimally displaced fracture extending transversely across the caudal sacrum level of S5-S6. Reviewed, dictated and finalized at location A.
--- NOTE | ~2025-04-10 | CT_ITS ---
EXAMINATION: 1. CT facial & cervical spine wo DATE: 04/10/2025 13:25 INDICATION: Facial trauma TECHNIQUE: 1. Computed tomography (CT) of the maxillofacial region and of the cervical spine were performed without intravenous contrast. Sagittal and coronal reconstructions of both regions were obtained. Automated exposure control and iterative reconstruction technique were employed. The dose-length product was 270.69 mGy-cm. COMPARISON: None. FINDINGS: Maxillofacial CT: Small skin laceration at the bridge of the nose. No maxillofacial fractures. Specifically the nasal bones, zygomatic arches, mandible and bearden of the orbits and paranasal sinuses are all intact. Changes of bilateral intraocular lens replacement. Orbits are otherwise normal. Mastoid air cells, middle ear cavities and paranasal sinuses are all clear. Small moderate prostatic calcifications at the bilateral carotid bulbs. Cervical spine CT: 120 mm anterolisthesis C7 on T1. Severe osteoarthritis at the atlantoaxial articulation. There is anterior and posterior spinal fusion at C5-C6. Vertebral body heights are normal. Severe disc height loss with severe bilateral uncovertebral osteoarthritis at C4-C5. Posterior disc osteophyte complex at C4- C5 and disc bulges at C2-C3, C3-C4 and C6-C7 which result in mild central canal stenosis at each of these levels. Moderate and severe facet osteoarthritis at the majority of the cervical and visualized upper thoracic facet joints. There is moderate neural foraminal stenosis bilaterally at C4-C5 and multilevel mild stenosis at many of the remaining cervical and upper thoracic neural foramina. Moderate emphysema in the visualized upper lobes. Cervical soft tissues are unremarkable. IMPRESSION: 1. Small laceration at the bridge of the nose. No maxillofacial fractures. 2. Severe cervical spondylosis with anterior and posterior spinal fusion at C5- C6. No acute osseous adenopathy. 3. Moderate emphysema. Reviewed, dictated and finalized at location A.
--- OUTSIDE RECORDS SUMMARY | 2025-04-10 12:41 | XMS_ITS | Clinical Summary ---
Author Organization [facility] Address [address] [place] [address] Care Team Providers Care Hydrodynamics Professor Name Role Phone Quinton Cade MD Unavailable [phone] Sonya Cabezas MD Primary Care Provider [phone] Source Comments [facility],non-owned Affiliates and Associated Physician Practices is amultiple site organization consisting of ambulatory clinics and hospital sitesin [place], [place], [place] and [place]. This disclosure is being madepursuant to the Care Everywhere program and may not contain all information available regarding this patient. Last updated 18.[facility] Allergies No known active allergies Medications * Be aware that medications may not be up to date on this document. Alwaysverify current medications with the patient. omeprazole (PRILOSEC) 20 MG capsule Take 20 mg by mouth daily before breakfast. Active oxycodone-acetaminophe n (PERCOCET) 5-325 MG tablet Take 1-2 Tabs by mouth every 4 hours as needed for Pain. 30 Tab 0 012 Active losartan - hydrochlorothiazide (HYZAAR) 50-12.5 MG tabletIndications:Prim mitzi osteoarthritis of both knees Take 1 Tab by mouth once daily Active liothyronine (CYTOMEL) 25 MCG tablet Take 25 mcg by mouth once daily Active metFORMIN (GLUCOPHAGE) 500 MG tablet Take 1,000 mg by mouth once daily Active sitaGLIPtin (JANUVIA) 100 MG tablet Take 100 mg by mouth once daily Active vitamin D, ergocalciferol, (DRISDOL) 79560 UNITS capsule Take 50,000 Units by mouth every 7 days Active cyanocobalamin (VITAMIN B-12) 500 MCG tablet Take 500 mcg by mouth once daily Active methylPREDNISolone (MEDROL DOSEPAK) 4 MG tabletIndications:Infl ammation Take as directed Reasons: Inflammation 21 Tab 0 016 Active Active Problems Problem Noted Date Diagnosed Date Primary osteoarthritis of left knee 07/12/2016 Primary osteoarthritis of both knees 12/28/2015 Immunizations Immunization Administration Dates Next Due INFLUENZA VACCINE, HIGH-DOSE , QUADR. 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 Gender Identity Not on file Sexual Orientation Not on file Last Filed Vital Signs Vital Sign Reading Time Taken Comments Blood Pressure 126/76 01/28/2016 12:22 PM CDT Pulse 88 01/28/2016 12:22 PM CDT Temperature 37.3 C (99.2 F) 01/28/2016 12:22 PM CDT Respiratory Rate 18 01/28/2016 12:22 PM CDT Oxygen Saturation 96% 01/28/2016 12:22 PM CDT Inhaled Oxygen Concentration - - Weight 96.2 kg (212 lb) 01/28/2016 12:22 PM CDT Height 161.3 cm (5' 3.5) 01/28/2016 12:22 PM CD T Body Mass Index 36.96 01/28/2016 12:22 PM CDT Plan of Treatment Health Maintenance Due Date Last Done Comments BONE DENSITY TESTING 1950 COLOGUARD (AGES 45-75) - COL ON CA SCREENING 1950 COLON MONITORING 1950 COLONOSCOPY - COLON CA SCREENING 1950 CT COLONOGRAPHY - COLON CA SCREENING 1950 Colorectal Cancer Screening 1950 FIT - COLON CA SCREENING 1950 FLEX SIG - COLON CA SCREENING 1950 LIPID TESTING 1950 MAMMOGRAM 1950 HEPATITIS C SCREENING 07/06/1968 DTAP/TDAP/TD VACCINES (1 - Tdap) 1969 PNEUMOCOCCAL VACCINE 50+ (1 of 1 - PCV) 2000 ZOSTER VACCINE (1 of 2) 2000 DEPRESSION SCREENING 07/24/2024 COVID-19 VACCINE (1 - 2023-2 5 season) 2025 INFLUENZA VACCINE (#1) 2025 05/10/2018 Respiratory Syncytial Virus (RSV) Vaccine Pt: or over 60 yrs (1 - 1-dose 75+ series) 2025 HEPATITIS B VACCINE Aged Out No longe r eligible based on patient's age to complete this topic HIB VACCINE Aged Out No longer eligi ble based on patient's age to complete this topic HPV VACCINE Aged Out No longer eligi ble based on patient's age to complete this topic MENINGOCOCCAL (Group B) VACC INE SHARED DECISION-MAKING Aged Out No longer eligibl e based on patient's age to complete this topic MENINGOCOCCAL GROUPS A/C/Y/W VACCINE Aged Out No longer eligible b ased on patient's age to complete [place] [address] [place] [address] [employer] [id number] [employer] MED[employer]ARE [employer] * Guarantor: [id number] Account Type Relation to Patient Date of Phone Billing Address 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
--- OUTSIDE RECORDS SUMMARY | 2025-04-10 12:41 | XMS_ITS | Encounter Summary ---
Author Organization [facility] Address [address] [place] [address] Care Team Providers Care Tie Fastener Name Role Phone Unavailable Primary Care Provider Unavailabl e Encounter Details Date Type Department Care Team (Late st Contact Info) Description 02/07/2004 Outpatient Historical [facility] [address] [place] [address] Jh Nieves MD [address] [facility] [address] [place] [address] Social History Tobacco Use Types Packs/Day Years Used Date Smoking Tobacco: Never Assessed Comments Unknown Sex and Gender Information Value Date Recorded Sex Assigned at Not on file 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
--- OUTSIDE RECORDS SUMMARY | 2025-04-10 12:41 | XMS_ITS | Clinical Summary ---
Author Organization [place] [id number] [facility] Address [address] [place] [address] Care Team Providers Care Stained Glass Window Designer Name Role Phone Sonya Cabezas MD Primary Care Provider Hitesh Perdue MD Unavailable [phone] Matthew Palmer NP Unavailable [phone] Allergies Active Allergy Reactions Criticality Noted Date Comments Naproxen Other (See comments) Low 12/14/2021 gastic bypass- pt stated can not take. Tramadol Itching Low 03/11/2025 tramadol Medications cyanocobalamin (Vitamin B-12) 500 mcg tablet Take 1 tablet (500 mcg total) by mouth every morning Active albuterol HFA (PROVENTIL HFA,VENTOLIN HFA,PROAIR HFA) 90 mcg/actuation inhalerIndicati ons:Chronic Obstructive Pulmonary Disease Inhale 2 puffs as needed 1 Active budesonide-glyc opyr-formoterol (Breztri Aerosphere) 160-9-4.8 mcg/actuation HFA aerosol inhalerIndicati ons:Bronchospas m Prevention with COPD Inhale 2 puffs 2 (two) times a day Active multivitamin tabletIndicatio ns:Vitamin Deficiency Prevention Take 1 tablet by mouth 2 (two) times a day 60 tablet 5 2 Active Additional Information Patient taking differently:1 tablet oral 2 times daily,Centrum minies 300 mg +Citrical 1300 mg total = 1600 mg calcium +Vitamin 1000 international units +Citrical 2000 international units = total Vitamin D 3000 international units, Indications: Vitamin Deficiency Prevention, Reported on 03/11/2025 docusate sodium (COLACE) 100 mg capsuleIndicati ons:constipatio n Take 1 capsule (100 mg total) by mouth 2 (two) times a day 30 capsule 2 Active apixaban (ELIQUIS) 5 mg tablet 2 Active tiZANidine (ZANAFLEX) 4 mg tablet TAKE 1 TO 2 TABLETS BY MOUTH EVERY DAY AT BEDTIME 3 Active potassium chloride ER 10 mEq CR capsule TAKE 1 CAPSULE BY MOUTH EVERY OTHER DAY 3 Active omeprazole (PriLOSEC) 20 mg capsule 2 Active CALCIUM CITRATE-VITAMIN D3 ORAL Calcium Citrate + D Active amoxicillin 500 mg capsule 3 Active fluticasone propionate (FLONASE) 50 mcg/actuation nasal spray USE 1 SPRAY(S) IN EACH NOSTRIL EVERY 12 HOURS 3 Active denosumab (Prolia) 60 mg/mL syringe Inject 1 mL as needed by subcutaneous route. 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 02/19/2025 Chronic thoracic back pain 01/14/2025 Thoracic spondylosis 01/14/2025 Non-traumatic compression fr acture of T11 thoracic vertebra, sequela 01/14/2025 Closed compression fracture of L1 lumbar vertebr a, sequela 01/14/2025 Acquired hypothyroidism 11/29/2023 Acute kidney injury 11/29/2023 Acute respiratory failure with hypoxia 4 Microcytic anemia 11/29/2023 Elevated troponin level not due myocardial infar ction 11/29/2023 Transaminasemia 11/29/2023 Mild emphysema 11/29/2023 Chronic obstructive pulmonar y disease, unspecified COPD type 10/24/2023 Lesion of right upper eyelid 01/11/2023 Assessment & Plan (02/25/2023 5:14 PM CDT): Likely sebaceous or keratin cyst. Risks, benefits and alternatives were discussed. Risks included but were not limited to pain, bleeding, scarring, recurrence, and possible need for additional procedures. Following this discussion, the patient wishes to proceed with right upper eyelid (RUL) lesion excision. This was performed today without any complications. They will follow-up as needed and will continue comprehensive eye care with Dr. David Ya, OD . Assessment & Plan (01/11/2023 8:39 AM CDT): Round lesion of right upper eyelid (RUL) temporal, not tender. No pigmentation or vascularization. Educated on possible etiologies (inclusion cyst vs chalazion vs alternative). Recommended pt be seen by oculoplastics Age-related osteoporosis wit omid current pathological fracture 03/22/2022 Pulmonary embolus with infarction 01/01/2022 Assessment & Plan (01/02/2022 11:00 AM CDT): Recurrent, likely is due to recent surgery and immobility, agree with starting heparin, will switch back to Eliquis, since she is hemodynamically stable and she has nice tight cardiac or not tachypneic, and her echo would show chronic RV enlargement which is the case due to COPD, I do not believe she has a candidate for repeating EKOS, as she has some improvement with anticoagulation, and her RV enlargement is chronic. Will repeat venous Doppler, continue with Eliquis 10 twice a day for next 1 week, but will keep her in hospital for close monitoring for 2 more days Benign essential HTN 01/01/2022 GERD (gastroesophageal reflux disease) 2 Asthma 01/01/2022 HLD (hyperlipidemia) 01/01/2022 Obesity (BMI 35.0-39.9 without comorbidity) 12/22 Saddle embolus of pulmonary artery 10/22/2021 Type 2 diabetes mellitus with diabetic nephropat hy 10/22/2021 No diagnosis on [place] I 07/06/2021 Dyspnea on exertion 08/28/2020 Deep vein thrombosis (DVT) 07/31/2020 Primary osteoarthritis of left knee 07/12/2016 Primary osteoarthritis of both knees 12/28/2015 Knee pain 09/11/2015 Resolved Problems Problem Noted Date Diagnosed Date Resolved Date Morbid obesity 07/06/2021 10/24/2023 BMI 40.0-44.9, adult 06/14/2021 024 Encounters Date Type Department Care Team Description 04/09/2025 8:49 AM CDT - 04/09/2025 11:59 PM CDT Hospital Encounter [facility] [address] [place] [id number] Hitesh Perdue MD Myalgia (Primary Dx); Thoracic spondylosis; 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 Discharge Disposition: Discharge to home or self care 04/08/2025 10:00 AM CDT Infusion [facility] [address] [facility] [address] [place] [id number] Age-related osteoporosis without current pathological fracture (Primary Dx) 03/31/2025 Telephone [facility] [address] [place] [address] [address] [place] [address] Farhana Holder 03/31/2025 Telephone [facility] [address] [place] [address] [address] [place] [address] Farhana Holder 03/11/2025 9:44 AM CDT - 03/11/2025 11:59 PM CDT Hospital Encounter [facility] [address] [place] [id number] Matthew Palmer NP Thoracic spondylosis (Primary Dx); 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 Discharge Disposition: Discharge to home or self care 03/04/2025 9:48 AM CDT - 03/04/2025 11:59 PM CDT Hospital Encounter [facility] [address] [place] [id number] Hitesh Perdue MD Thoracic spondylosis [M47.814] (Primary Dx); Chronic thoracic back pain, unspecified back pain laterality; Chronic left-sided thoracic back pain Discharge Disposition: Discharge to home or self care 02/20/2025 Telephone [facility] [address] [place] [phone] Jason Zavaleta NP 02/19/2025 9:43 AM CDT - 02/19/2025 11:59 PM CDT Hospital Encounter [facility] [address] [place] [id number] Jason Zavaleta NP Thoracic spondylosis (Primary Dx); 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; Chronic bilateral thoracic back pain Discharge Disposition: Discharge to home or self care 02/05/2025 9:52 AM CDT - 02/05/2025 11:59 PM CDT Hospital Encounter [facility] [address] [place] [id number] Hitesh Perdue MD Thoracic spondylosis [M47.814] (Primary Dx); Chronic thoracic back pain, unspecified back pain laterality; Chronic left-sided thoracic back pain; Other spondylosis, thoracolumbar region; Thoracic spine pain [M54.6] Discharge Disposition: Discharge to home or self care 01/14/2025 10:21 AM CDT - 01/14/2025 11:59 PM CDT Hospital Encounter [facility] [address] [place] [phone] Hitesh Perdue MD Chronic thoracic back pain, unspecified back pain laterality (Primary Dx); Chronic pain syndrome; Chronic left-sided thoracic back pain; Other spondylosis, thoracolumbar region; Thoracic spondylosis; Non-traumatic compression fracture of T11 thoracic vertebra, sequela; Closed compression fracture of L1 lumbar vertebra, sequela Discharge Disposition: Discharge to home or self care from Last 3 Months Surgical History Surgery Date Site/Laterality Comments BACK SURGERY Back Surgery - (Added by TW Conv) DC CHOLECYSTECTOMY Cholecystectomy - (Added by TW Conv) KNEE ARTHROSCOPY CHOLECYSTECTOMY APPENDECTOMY CERVICAL FUSION 07/24/1969 - 07/23/1970 RADIOFREQUENCY ABLATION NERVES L3,L4,L5 nerve ablation Medical History Medical History Date Comments Arthritis Dupree esophagus GERD (gastroesophageal reflux disease) Hypertension Joint pain Deep vein thrombosis (HCC) Morbid obesity (HCC) Low back pain Hiatal hernia Family History Medical History Relation Name Comments Alcohol abuse Father Family history of alcoholism - (Added by TW Conv) Cancer Father Family history of malignant neoplasm - (Added by TW Conv) Heart disease Father Family history of cardiac disorder - (Added by TW Conv) Lung disease Father Family history of lung disease - (Added by TW Conv) Cancer Sister Family history of malignant neoplasm - (Added by TW Conv) Anesthesia problems Neg Hx Broken bones Neg Hx Hip fracture Neg Hx Kyphosis Neg Hx Osteoporosis Neg Hx Scoliosis Neg Hx Relation Name Status Comments Father Mother Sister Social History Tobacco Use Types Packs/Day Years [...] on file Legal Sex Female 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 Gender Identity Not on file Sexual Orientation Not on file Obstetrics History Last Filed Vital Signs Vital Sign Reading Time Taken Comments Blood Pressure 114/73 03/11/2025 10:13 AM CDT Pulse 65 03/11/2025 10:13 AM CDT Temperature 36.4 C (97.5 F) 03/04/2025 10:15 AM CDT Respiratory Rate 18 03/11/2025 10:1 3 AM CDT Oxygen Saturation 96% 03/11/2025 10: 13 AM CDT Inhaled Oxygen Concentration - - Weight 72.1 kg (158 lb 14.4 oz) 04/09/2024 9:51 AM CDT Height 160 cm (5' 3) 04/09/2024 9:51 AM CDT Body Mass Index 28.15 04/09/2024 9:51 AM CDT Plan of Treatment Health Maintenance Due Date Last Done Comments Albumin Creatinine Ratio, Urine 1950 Breast Cancer Screening-Mammogram 1950 Colon Cancer Screening-Colonoscopy 1950 Depression Screening 1950 Dilated Eye Exam 1950 Foot Exam 1950 DTaP/Tdap/Td Vaccine (1 - Tdap) 1961 Pneumococcal vaccine 65+ (1 of 2 - PCV) 1969 Lung Cancer Screening 2000 Well Visit 65+ 2015 Hemoglobin A1C 07/03/2022 01/01/2022, 05/25, 07/03/2020 Lipid Panel 01/01/2023 01/01/2022, 04/0 07/2021, 06/14/2021, Additional history exists eGFR 03/22/2023 03/22/2022, 12/22, 01/05/2022, Additional history exists Covid-19 Vaccine (2024-2 6 season) 2025 05/18/2021, 10/12/2020, 09/09/2020 Influenza Vaccine (#1) 2025 , 04/12/2020, 04/29/2019, Additional history exists Fall Risk Assessment 03/11/2026 03/11/2025 Osteoporosis Screening-Bone Density Scan 04/09/2026 04/09/2024, 03/28/2023, 12/14/2021, Additional history exists Hepatitis B Screening Completed 07/03/2020 Hepatitis C Screening Completed 07/03/2020 Zoster Vaccine Completed 12/13/2020, 04/12/2020 Procedures Procedure Name Priority Date/Time Associated Diagnosis Comments PAIN MGMT IMAGING PERIPHERAL NERVE STIM PLACEMENT Schedule Routine, Read Routine (OP Routine) 03/04/2025 11:02 AM CDT Chronic thoracic back pain, unspecified back pain laterality Chronic left-sided thoracic back pain PAIN MGMT IMAGING LUMBAR/SACRAL FACET/ MEDIAL BRANCH BLOCK LEFT Schedule Routine, Read Routine (OP Routine) 02/05/2025 10:37 AM CDT Chronic thoracic back pain, unspecified back pain laterality Chronic left-sided thoracic back pain Other spondylosis, thoracolumbar region DEXA TBS AXIAL SKELETON BONE DENSITY 1 OR MORE SITES Schedule Routine, Read Routine (OP Routine) 04/09/2024 9:49 AM CDT Age-related osteoporosis without current pathological fracture EGFR Routine 03/22/2022 11:07 AM CDT Age-related osteoporosis without current pathological fracture HEMOGLOBIN A1C Routine 01/01/2022 11:39 AM CDT LIPID PANEL Routine 01/01/2022 11:39 AM CDT HEPATITIS PANEL, ACUTE Routine 07/03/2020 6:15 AM POLICE SHIFT COMMANDER from Last 3 Months or Most Recently Relevant to Health Maintenance Results * Imaging Peripheral Nerve Stim Placement ([id number]) (03/04/2025 11:02 AM CDT) Narrative RAD_PACS_ - 03/04/2025 11:02 AM CDT The images from this study are not interpreted by Radiology. Please refer to the physician's procedure / OR operative note. Hitesh Perdue MD IM PAIN MGMT PROCEDU RES Final Result Performing Organization Address [facility] de Phone Number [email or web address] * Imaging Lumbar/Sacral Facet Medial Branch Block Left ([id number]) (02/05/2025 10:37 AM CDT) Narrative RAD_PACS_ - 02/05/2025 10:38 AM CDT The images from this study are not interpreted by Radiology. Please refer to the physician's procedure / OR operative note. Hitesh Perdue MD IM PAIN MGMT PROCEDU RES Final Result Performing Organization Address [facility] Phone Number [email or web address] * Dexa TBS Axial Skeleton Bone Density 1 or more sites (04/09/2024 9:49 AM CDT) Anatomical Region Laterality Modality Wrist, Body N/A Radiographic Lynn ging Narrative 04/09/2024 6:46 PM CDT Patient Name: Dominga Reynaga Date of : 1950 Date of scan: 04/09/2024 Bone mineral density was performed on a Peakos Discovery Densitometer. Based on machine cross-calibration and precision studies the least significant changes of this densitometer is 0.024 g/cm2 at the spine, 0.020 g/cm2 at the total proximal femur, and 0.014g/cm2 at the forearm. HISTORY: This is a 73 y.o. postmenopausal female with a history of osteoporosis and vitamin D deficiency. She reports that she quit smoking about 8 years ago. Her smoking use included cigarettes. She started smoking about 57 years ago. She has a 49 pack-year smoking history. She has never used smokeless tobacco. Currently on treatment with calcium, vitamin D, denosumab (Prolia), and anticoagulants, previously treated with abaloparatide (Tymlos), and current complaint of back pain and leg pain. INDICATIONS: Menopause status, treatment monitoring, history of prior vertebral fracture, vitamin D deficiency, and history of osteoporosis. FINDINGS: BONE MINERAL DENSITY OF THE PROXIMAL FEMUR Bone Mineral Density (BMD) of the left hip total was found to be 0.666 gm/cm2. This corresponds to a T-score standard deviations from the mean of young adults of -2.3. Femoral neck is 0.500 gm/cm2 with a T-score (standard deviations from the mean of young adults) of -3.1. When compared to the previous study of 03/28/2023 there has been a 0.022 gm/cm (3.4%) increase in bone density that is considered significant. BONE MINERAL DENSITY OF THE FOREARM Bone Mineral density (BMD) of the right proximal 1/3 of the radius measures 0.581 gm/cm2. This corresponds to a T-score (standard deviations from the mean of young adults) of -1.9. When compared to the previous study of 03/28/2023 there has been no significant changes in bone density. A forearm bone density study was performed instead of a spine study because of an internal artifact that cannot be removed. SUMMARY: Bone mineral density shows evidence of osteoporosis and marked increase risk of fracture. There has been a significant increase in bone density since previous measurement. The lumbar spine Trabecular Bone Score TBS was not obtained due to BMI being out of range. ADDITIONAL COMMENTS: Postmenopausal Women and Men Over 50: Diagnostic criteria: Osteoporosis: BMD at or below -2.5 T-score; Osteopenia (low bone mass): BMD between -1.0 and -2.5 T-score. If the patient has a history of a fragility fracture, a fracture that occurred with trauma equivalent to a fall from a standing position or less, then the diagnosis is osteoporosis regardless of bone density. The history and data sections of the bone mineral density scan were prepared by Sheila Villafana)(CBDT)who is accredited by the International Society of Clinical Densitometry. The overall patient assessment and scan interpretation were performed by Maggy Cortez M.D. who is certified by the International Society of Clinical Densitometry. [id number] Maggy Cortez MD IMG DXA PROCEDURES Final Resu lt * (ABNORMAL) eGFR (03/22/2022 11:07 AM CDT) eGFR 73(L) 90 - 130 mL/min/1. 73 m2 [facility] Comment: Interpretive Data Reference Interval Normal >/= 90 mL/min/1.73m2 Mildly decreased* 60 - 89 mL/min/1.73m2 Mildly to moderately decreased 45 - 59 mL/min/1.73m2 Moderately to severely decreased 30 - 44 mL/min/1.73m2 Severely decreased 15 - 29 mL/min/1.73m2 Kidney Failure < 15 mL/min/1.73m2 *Relative to young adult level Estimated glomerular filtration rate is determined by the 2020 CKD-EPI equation recommended by the National Kidney Foundation (A Unifying Approach to GFR Estimation: Recommendations of the NKF-ASK Task Force on Reassessing the Inclusion of Race in Diagnosing Kidney Disease, JASN 202). The CKD-EPI equation should not be used for patients with unstable renal function and has not been validated in children and those over 70. Current interpretive data was last reviewed 2021. Blood 03/22/2022 11:0 7 AM CDT 03/22/2022 1:58 PM CDT us Maggy Cortez MD LAB BLOOD ORDERABLES Final Re sult [facility] Department [place] [address] * Hemoglobin A1c (01/01/2022 11:39 AM CDT) Hgb A1C 5.1 4.0 - 5.6 % [facility] Estimated Average Glucose 100 mg/dL [facility] Comment: The ADA recommends reporting an estimated Average Glucose (eAG) with all Hemoglobin A1c results using the equation derived from a study of 507 normal and diabetic adults. Minority populations were underrepresented and children were not included. (Diabetes Care 31:5889-9760, 2008). The eAG is not equivalent to a fasting glucose. Blood 01/01/2022 11:3 9 AM CDT 01/01/2022 11:42 AM CDT us Moris Gordon MD LAB BLOOD ORDERABLES Final Result [facility] [address] [facility] Department [place] [address] * Lipid panel (01/01/2022 11:39 AM CDT) Cholesterol 130 30 - 199 mg/dL [facility] Comment: Interpretive Data Ages < or = 19 years Acceptable: <170 mg/dL Borderline high: 170-199 mg/dL High: >or= 200 mg/dL Ages > or = 20 years Desirable: <200 mg/dL Borderline high: 200-239 mg/dL High: >or= 240 mg/dL Literature References: 1. Expert Panel on Integrated Guidelines for Cardiovascular Health and Risk Reduction in Children and Adolescents. Pediatrics 2011;128:S213 2. NCEP Expert Panel. Circulation 2004;110:227 Current Interpretive Data was last revised on 2018. Triglycerides 89 <=149 mg/dL [facility] Comment: Interpretive Data Ages < or = 9 years Acceptable: <75 mg/dL Borderline high: 75-99 mg/dL High: >or= 100 mg/dL Ages 10 to 20 years Acceptable: <90 mg/dL Borderline high: 90-129 mg/dL High: >or= 130 mg/dL Ages > or = 20 years Desirable: <150 mg/dL Borderline high: 150-199 mg/dL High: 200-499 mg/dL Very high: >or= 499 mg/dL Literature References: 1. Expert Panel on Integrated Guidelines for Cardiovascular Health and Risk Reduction in Children and Adolescents. Pediatrics 2011;128:S213 2. NCEP Expert Panel. Circulation 2004;110:227 Current Interpretive Data was last revised on 2018. HDL 61 >=40 mg/dL [facility] Comment: Interpretive Data Ages < or = 19 years Acceptable: >45 mg/dL Borderline low: 40-45 mg/dL Low: <40 mg/dL Ages > or = 20 years Desirable: >or= 60 mg/dL Low: <40 mg/dL Literature References: 1. Expert Panel on Integrated Guidelines for Cardiovascular Health and Risk Reduction in Children and Adolescents. Pediatrics 2011;128:S213 2. NCEP Expert Panel. Circulation 2004;110:227 Current Interpretive Data was last revised on 2018. LDL, calculated 51 <=129 mg/dL [facility] Comment: Interpretive Data Ages < or = 19 years Acceptable: <110 mg/dL Borderline high: 110-129 mg/dL High: >or= 130 mg/dL Ages > or = 20 years Optimal: <100 mg/dL Near optimal: 100-129 mg/dL Borderline high: 130-159 mg/dL High: >160 mg/dL Literature References: 1. Expert Panel on Integrated Guidelines for Cardiovascular Health and Risk Reduction in Children and Adolescents. Pediatrics 2011;128:S213 2. NCEP Expert Panel. Circulation 2004;110:227 Current Interpretive Data was last revised on 2018. Non-HDL Cholesterol 69 mg/dL [facility] Comment: Interpretive Data Ages < or = 19 years Acceptable: <120 mg/dL Borderline high: 120-144 mg/dL High: >145 mg/dL Ages > or = 20 years When triglycerides are >200 mg/dL, Non-HDL cholesterol is a secondary target of therapy with treatment goals that are 30 mg/dL greater than the LDL cholesterol target. Literature References: 1. Expert Panel on Integrated Guidelines for Cardiovascular Health and Risk Reduction in Children and Adolescents. Pediatrics 2011;128:S213 2. NCEP Expert Panel. Circulation 2004;110:227 Current Interpretive Data was last revised on 2018. Chol/HDL ratio 2 [facility] PERRY Blood 01/01/2022 11:3 9 AM CDT 01/01/2022 11:42 AM CDT us Moris Gordon MD LAB BLOOD ORDERABLES Final Result [id number] [facility] Department [place] [address] * Hepatitis panel, acute (07/03/2020 6:15 AM POLICE SHIFT COMMANDER) HepBsAg NONREACT NONREACTIVE [facility] Comment: Siemens CentaurXP using ANGÉLICA (chemiluminescent immunoassay) technology. NONREACTIVE: IgM antibodies to Hepatitis B Surface antigen not detected. REACTIVE: IgM antibodies to Hepatitis B Surface antigen detected. Reactive results will be confirmed by neutralization testing. HBsAb qn <3.10 mIU/mL [facility] Comment: Siemens CentaurXP using ANGÉLICA (chemiluminescent immunoassay) technology. 9.99 IU/L or less.....NONREACTIVE: IgM antibodies to Hepatitis B Surface antibody are not detected. 10.00 IU/L or greater..REACTIVE: IgM antibodies to Hepatitis B Surface antibody are detected. Hep B core IgM NONREACT NONREACTIVE [facility] Comment: Siemens CentaurXP using ANGÉLICA (chemiluminescent immunoassay) technology. NONREACTIVE: IgM antibodies to Hepatitis B Core antigen not detected. EQUIVOCAL: IgM antibodies to Hepatitis B Core antigen may or may not be present. Obtain a new specimen and retest. REACTIVE: IgM antibodies to Hepatitis B Core antigen detected. Hep A IgM NONREACT NONREACTIVE [facility] Comment: Siemens CentaurXP using ANGÉLICA (chemiluminescent immunoassay) technology. NONREACTIVE: IgM antibodies to Hepatitis A not detected. This does not exclude possibility of exposure to Hepatitis A or early acute infection. EQUIVOCAL:IgM antibodies to Hepatitis A may or may not be present. Suggest recollection and retest. REACTIVE: Antibodies to Hepatitis A detected. Hep C Ab NONREACT NONREACTIVE [facility] Comment: Siemens CentaurXP using ANGÉLICA (chemiluminescent immunoassay) technology. NONREACTIVE: Antibodies to Hepatitis C not detected. This does not exclude early acute Hepatitis C infection, possibility of exposure to Hepatitis C, antibodies below detection limit, or to lack of antibody reactivity to the antigen used in this assay. EQUIVOCAL: Antibodies to Hepatitis C may or may not be present. Sample to be confirmed by real-time PCR method. REACTIVE: Antibodies to Hepatitis C detected.Sample to be confirmed by real-time PCR method. 07/03/2020 6:15 AM POLICE SHIFT COMMANDER 07/03/2020 6:19 AM POLICE SHIFT COMMANDER Narrative Resulting Agency Comment IN Akanksha Amarilys Arriaza DO LAB MICROBIOLOGY - GENERAL OR DERABLES Final Result [place] [id number] [place] [address], [facility] [phone] from Last 3 Months or Most Recently Relevant to Health Maintenance Insurance [facility] MEDICARE MEDICARE AETNA SENIOR SUPPLEMENT AETNA Plus Payments MEDICARE AETNA SENIOR SUPPLEMENT Advance Directives For more information, please contact: [phone] * Full Code (Latest Code Status on File) Date Activated Date Inactivated Comments 01/01/2022 11:24 AM 01/06/2022 7:11 PM * Full Code Date Activated Date Inactivated Comments 10/21/2021 3:06 PM 10/23/2021 7:07 PM Care Teams Stained Glass Window Designer Relationship Specialty Start Date End Date Sonya Cabezas MD PCP - General Family Medicine 04/10/24 [place] [id number] [address] [facility] [address] [facility] [place] [address] Consulting Physician Pain Management 03/11/25 [place] [address] [address] [facility] [address] [place] [address] Nurse Practitioner Nurse Practitioner 03/11/25
--- OUTSIDE RECORDS SUMMARY | 2025-04-10 12:41 | XMS_ITS | Encounter Summary ---
Author Organization [facility] Address [address] [place] [address] Care Team Providers Care Gang Boss Name Role Phone Unavailable Primary Care Provider Unavailabl e Encounter Details Date Type Department Care Team (Late st Contact Info) Description 02/07/2004 Outpatient Historical [facility] Internal Medicine [address] [place] [address] Jh Nieves MD [address] [facility] [address] [place] [address] Social History Tobacco Use Types Packs/Day Years Used Date Smoking Tobacco: Never Assessed Comments Unknown Sex and Gender Information Value Date Recorded Sex Assigned at Not on file 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
--- OUTSIDE RECORDS SUMMARY | 2025-04-10 12:41 | XMS_ITS | Encounter Summary ---
Author Organization [facility] Address [address] [place] [address] Care Team Providers Care Cane Pusher Name Role Phone Unavailable Primary Care Provider Unavailabl e Encounter Details Date Type Department Care Team (Late st Contact Info) Description 10/26/2002 Outpatient Historical [facility] Internal Medicine [address] [place] [address] Jh Nieves MD [address] [facility] [address] [place] [address] Social History Tobacco Use Types Packs/Day Years Used Date Smoking Tobacco: Never Assessed Comments Unknown Sex and Gender Information Value Date Recorded Sex Assigned at Not on file 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
--- OUTSIDE RECORDS SUMMARY | 2025-04-10 12:41 | XMS_ITS | Encounter Summary ---
Author Organization [facility] Address [address] [place] [address] Care Team Providers Care Rail Signal Designer Name Role Phone Unavailable Primary Care Provider Unavailabl e Encounter Details Date Type Department Care Team (Late st Contact Info) Description 09/09/2004 Outpatient Historical 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
--- OUTSIDE RECORDS SUMMARY | 2025-04-10 12:41 | XMS_ITS | Encounter Summary ---
Author Organization [facility] Address [address] [place] [address] Care Team Providers Care Copra Sampler Name Role Phone Unavailable Primary Care Provider Unavailabl e Encounter Details Date Type Department Care Team (Late st Contact Info) Description 08/14/2004 Outpatient Historical [facility] Internal Medicine [address] [place] [address] Jh Nieves MD [address] [facility] [address] [place] [address] Social History Tobacco Use Types Packs/Day Years Used Date Smoking Tobacco: Never Assessed Comments Unknown Sex and Gender Information Value Date Recorded Sex Assigned at Not on file 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
--- OUTSIDE RECORDS SUMMARY | 2025-04-10 12:41 | XMS_ITS | Encounter Summary ---
Author Organization [facility] Address [address] [place] [address] Care Team Providers Care Patient Insurance Clerk Name Role Phone Unavailable Primary Care Provider Unavailabl e Encounter Details Date Type Department Care Team (Late st Contact Info) Description 09/27/2003 Outpatient Historical [facility] Internal Medicine [address] [place] [address] Jh Nieves MD [address] [facility] [address] [place] [address] Social History Tobacco Use Types Packs/Day Years Used Date Smoking Tobacco: Never Assessed Comments Unknown Sex and Gender Information Value Date Recorded Sex Assigned at Not on file 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
--- OUTSIDE RECORDS SUMMARY | 2025-04-10 12:41 | XMS_ITS | Encounter Summary ---
Author Organization [facility] Address [address] [place] [address] Care Team Providers Care Business Banking Sales Assistant Name Role Phone Unavailable Primary Care Provider Unavailabl e Encounter Details Date Type Department Care Team (Late st Contact Info) Description 05/24/2003 Outpatient Historical [facility] Internal Medicine [address] [place] [address] Jh Nieves MD [address] [facility] [address] [place] [address] Social History Tobacco Use Types Packs/Day Years Used Date Smoking Tobacco: Never Assessed Comments Unknown Sex and Gender Information Value Date Recorded Sex Assigned at Not on file 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
--- OUTSIDE RECORDS SUMMARY | 2025-04-10 12:41 | XMS_ITS | Encounter Summary ---
Author Organization [facility] Address [address] [place] [address] Care Team Providers Care Digital Editor Name Role Phone Unavailable Primary Care Provider Unavailabl e Encounter Details Date Type Department Care Team (Late st Contact Info) Description 12/31/2004 Outpatient Historical [facility] Internal Medicine [address] [place] [address] Jh Nieves MD [address] [facility] [address] [place] [address] Social History Tobacco Use Types Packs/Day Years Used Date Smoking Tobacco: Never Assessed Comments Unknown Sex and Gender Information Value Date Recorded Sex Assigned at Not on file 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
--- OUTSIDE RECORDS SUMMARY | 2025-04-10 12:41 | XMS_ITS | Encounter Summary ---
Author Organization [facility] Address [address] [place] [address] Care Team Providers Care Bpo Specialist Name Role Phone Unavailable Primary Care Provider Unavailabl e Encounter Details Date Type Department Care Team (Late st Contact Info) Description 09/27/2003 Outpatient Historical [facility] Internal Medicine [address] [place] [address] Jh Nieves MD [address] [facility] [address] [place] [address] Social History Tobacco Use Types Packs/Day Years Used Date Smoking Tobacco: Never Assessed Comments Unknown Sex and Gender Information Value Date Recorded Sex Assigned at Not on file Legal Sex Female 4:05 AM CONSIGNEE Gender Identity Not on file Sexual Orientation Not on file documented as of this encounter Plan of Treatment Not on file documented as of this encounter Visit Diagnoses Not on filedocumented in this encounter
--- OUTSIDE RECORDS SUMMARY | 2025-04-10 12:41 | XMS_ITS | Encounter Summary ---
Author Organization [facility] Address [address] [place] [address] Care Team Providers Care Manager Contract Name Role Phone Unavailable Primary Care Provider Unavailabl e Encounter Details Date Type Department Care Team (Late st Contact Info) Description 12/31/2004 Outpatient Historical [facility] Internal Medicine [address] [place] [address] Jh Nieves MD [address] [facility] [address] [place] [address] Social History Tobacco Use Types Packs/Day Years Used Date Smoking Tobacco: Never Assessed Comments Unknown Sex and Gender Information Value Date Recorded Sex Assigned at Not on file 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
--- OUTSIDE RECORDS SUMMARY | 2025-04-10 12:41 | XMS_ITS | Encounter Summary ---
Author Organization [facility] Address [address] [place] [address] Care Team Providers Care Gas Line Installer Name Role Phone Unavailable Primary Care Provider Unavailabl e Encounter Details Date Type Department Care Team (Late st Contact Info) Description 02/07/2004 Outpatient Historical [facility] Internal Medicine [address] [place] [address] Jh Nieves MD [address] [facility] [address] [place] [address] Social History Tobacco Use Types Packs/Day Years Used Date Smoking Tobacco: Never Assessed Comments Unknown Sex and Gender Information Value Date Recorded Sex Assigned at Not on file 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
--- OUTSIDE RECORDS SUMMARY | 2025-04-10 12:41 | XMS_ITS | Encounter Summary ---
Author Organization [facility] Address [address] [place] [address] Care Team Providers Care Pharmacy Customer Care Specialist Name Role Phone Unavailable Primary Care Provider Unavailabl e Encounter Details Date Type Department Care Team (Late st Contact Info) Description 08/14/2004 Outpatient Historical [facility] Internal Medicine [address] [place] [address] Jh Nieves MD [address] [facility] [address] [place] [address] Social History Tobacco Use Types Packs/Day Years Used Date Smoking Tobacco: Never Assessed Comments Unknown Sex and Gender Information Value Date Recorded Sex Assigned at Not on file 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
--- OUTSIDE RECORDS SUMMARY | 2025-04-10 12:41 | XMS_ITS | Encounter Summary ---
Author Organization [facility] Address [address] [place] [address] Care Team Providers Care Cooler Conveyor Loader Name Role Phone Unavailable Primary Care Provider Unavailabl e Encounter Details Date Type Department Care Team (Late st Contact Info) Description 12/31/2004 Outpatient Historical [facility] Internal Medicine [address] [place] [address] Jh Nieves MD [address] [facility] [address] [place] [address] Social History Tobacco Use Types Packs/Day Years Used Date Smoking Tobacco: Never Assessed Comments Unknown Sex and Gender Information Value Date Recorded Sex Assigned at Not on file 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
--- OUTSIDE RECORDS SUMMARY | 2025-04-10 12:41 | XMS_ITS | Clinical Summary ---
Author Organization [facility] Address [address] [place]: Epic Prelude ADT DAMARIS [place]AM[place] [address] Care Team Providers Care Nurses Supervisor Name Role Phone Unavailable Primary Care Provider Unavailabl e Social History Tobacco Use Types Packs/Day Years Used Date Smoking Tobacco: Never Assessed Comments Unknown Sex and Gender Information Value Date Recorded Sex Assigned at Not on file Legal Sex Female 4:05 AM ENROLLMENT NURSE Gender Identity Not on file Sexual Orientation Not on file Plan of Treatment Health Maintenance Due Date Last Done Comments DTAP/TDAP/TD VACCINES (1 - Tdap) 1969 BREAST CANCER SCREENING 1990 COLORECTAL SCREENING 1995 Colorectal Cancer Screening 1995 FIT-DNA Q 3 years 1995 FIT/FOBT Q 1 year 1995 Flex Sig/CT Colonography Q 5 years 1995 PNEUMOCOCCAL VACCINE 50+ YEARS (1 of 1 - PCV) 07/11/20 00 ZOSTER VACCINE (1 of 2) 2000 OSTEOPOROSIS SCREENING 2015 INFLUENZA VACCINE (#1) 2025 RSV VACCINE (60+ or ) (1 - 1-dose 75+ series) 2025
--- OUTSIDE RECORDS SUMMARY | 2025-04-10 12:41 | XMS_ITS | Encounter Summary ---
Author Organization [facility] Address [address] [place] [address] Care Team Providers Care Site Lead Name Role Phone Unavailable Primary Care Provider Unavailabl e Encounter Details Date Type Department Care Team (Late st Contact Info) Description 05/24/2003 Outpatient Historical [facility] Internal Medicine [address] [place] [address] Jh Nieves MD [address] [facility] [address] [place] [address] Social History Tobacco Use Types Packs/Day Years Used Date Smoking Tobacco: Never Assessed Comments Unknown Sex and Gender Information Value Date Recorded Sex Assigned at Not on file Legal Sex Female 4:05 AM SALES ASSISTANTS AND SALESPERSONS Gender Identity Not on file Sexual Orientation Not on file documented as of this encounter Plan of Treatment Not on file documented as of this encounter Visit Diagnoses Not on filedocumented in this encounter
--- OUTSIDE RECORDS SUMMARY | 2025-04-10 12:41 | XMS_ITS | Encounter Summary ---
Author Organization [facility] Address [address] [place] [address] Care Team Providers Care Risk Management Specialist Name Role Phone Unavailable Primary Care Provider Unavailabl e Encounter Details Date Type Department Care Team (Late st Contact Info) Description 02/07/2004 Outpatient Historical [facility] Internal Medicine [address] [place] [address] Jh Nieves MD [address] [facility] [address] [place] [address] Social History Tobacco Use Types Packs/Day Years Used Date Smoking Tobacco: Never Assessed Comments Unknown Sex and Gender Information Value Date Recorded Sex Assigned at Not on file 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
--- OUTSIDE RECORDS SUMMARY | 2025-04-10 12:41 | XMS_ITS | Clinical Summary ---
Author Organization [facility] Address [address] [place] [address] Care Team Providers Care Rail Technician Name Role Phone Unavailable Primary Care Provider Unavailabl e Social History Tobacco Use Types Packs/Day Years Used Date Smoking Tobacco: Never Assessed Comments Unknown Sex and Gender Information Value Date Recorded Sex Assigned at Not on file Legal Sex Female 5:25 PM CDT Gender Identity Not on file Sexual Orientation Not on file Plan of Treatment Health Maintenance Due Date Last Done Comments Colorectal Cancer Screening Colonoscopy (10 Years) 1950 Hepatitis C 1968 DTaP, Tdap and Td Vaccines ( 1 - Tdap) 1969 Mammogram Screening 1990 Pneumococcal Vaccine: 50+ Ye ars (1 of 1 - PCV) 2000 Zoster Vaccines (1 of 2) 2000 Dexa Scan (General) 2015 COVID-19 Vaccine ( - 2023-2 5 season) 2025 RSV Immunization or 60+ Years (1 - 1-dose 75+ series) 2025 Meningococcal B Vaccine Aged Out No l onger eligible based on patient's age to complete this topic Meningococcal Vaccine Aged Out No mann sanford eligible based on patient's age to complete this topic RSV Immunizations Under 20 Months Aged Out No longer eligible based on patient's age to complete this topic
--- OUTSIDE RECORDS SUMMARY | 2025-04-10 12:41 | XMS_ITS | Encounter Summary ---
Author Organization [facility] Address [address] [place] [address] Care Team Providers Care Blanket Cutter Hand Name Role Phone Unavailable Primary Care Provider Unavailabl e Encounter Details Date Type Department Care Team (Late st Contact Info) Description 02/07/2004 Outpatient Historical [facility] Internal Medicine [address] [place] [address] Jh Nieves MD [address] [facility] [address] [place] [address] Social History Tobacco Use Types Packs/Day Years Used Date Smoking Tobacco: Never Assessed Comments Unknown Sex and Gender Information Value Date Recorded Sex Assigned at Not on file 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
--- OUTSIDE RECORDS SUMMARY | 2025-04-10 12:41 | XMS_ITS | Encounter Summary ---
Author Organization [facility] Address [address] [place] [address] Care Team Providers Care Healthcare Specialist Name Role Phone Unavailable Primary Care Provider Unavailabl e Encounter Details Date Type Department Care Team (Late st Contact Info) Description 08/14/2004 Outpatient Historical [facility] Internal Medicine [address] [place] [address] Jh Nieves MD [address] [facility] [address] [place] [address] Social History Tobacco Use Types Packs/Day Years Used Date Smoking Tobacco: Never Assessed Comments Unknown Sex and Gender Information Value Date Recorded Sex Assigned at Not on file 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
--- OUTSIDE RECORDS SUMMARY | 2025-04-10 12:41 | XMS_ITS | Encounter Summary ---
Author Organization [facility] Address [address] [place] [address] Care Team Providers Care Pan Washer Hand Name Role Phone Unavailable Primary Care Provider Unavailabl e Encounter Details Date Type Department Care Team (Late st Contact Info) Description 05/24/2003 Outpatient Historical [facility] Internal Medicine [address] [place] [address] Jh Nieves MD [address] [facility] [address] [place] [address] Social History Tobacco Use Types Packs/Day Years Used Date Smoking Tobacco: Never Assessed Comments Unknown Sex and Gender Information Value Date Recorded Sex Assigned at Not on file 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
--- OUTSIDE RECORDS SUMMARY | 2025-04-10 12:41 | XMS_ITS | Encounter Summary ---
Author Organization [facility] Address [address] [place] [address] Care Team Providers Care Cloth Packer Name Role Phone Unavailable Primary Care Provider Unavailabl e Encounter Details Date Type Department Care Team (Late st Contact Info) Description 02/22/2003 Outpatient Historical [facility] Internal Medicine [address] [place] [address] Jh Nieves MD [address] [facility] [address] [place] [address] Social History Tobacco Use Types Packs/Day Years Used Date Smoking Tobacco: Never Assessed Comments Unknown Sex and Gender Information Value Date Recorded Sex Assigned at Not on file Legal Sex Female 4:05 AM NURSE WOUND CARE Gender Identity Not on file Sexual Orientation Not on file documented as of this encounter Plan of Treatment Not on file documented as of this encounter Visit Diagnoses Not on filedocumented in this encounter
[2025-04-10 12:42] VITALS: BP 124/54; PULSE 66; RESP 16; TEMP 36.6; O2SAT 99
--- NOTE | 2025-04-10 12:50 | ED.HEATRA ---
HPI - Head Injury General Chief complaint: Head Injury Stated complaint: Sent by Dr Cabezas-S/P fall-head injury Time Seen by Provider: 04/10/25 12:50 Focused HPI: Patient is a 74-year-old female who presents to the ER after sustaining a fall 3 days ago. She reports she fell on concrete and landed on her face. Patient also reports her knees landed on rocks beneath her and it jolted her back. She endorses some right eye visual changes, headache, neck pain, and lower back pain. Patient reports she went to pain management yesterday who placed cortisone shot in her neck and lower back. She endorses a history of blood clots and is on a blood thinner. Patient also endorses a history of high blood pressure. GENERAL: Well-appearing, well-nourished, and in no acute distress. HEAD: Normocephalic, laceration (scabbed) right forehead, bruising around both eyes CHEST: Clear to auscultation. ?No respiratory distress. HEART: Regular rate and rhythm.? NEURO: ?Alert and oriented x3. Patient screened in triage and initial orders placed.? ?Additional care and disposition to be based upon?diagnostic testing and treatment. Related Data Home Medications ?Medication ?Instructions ?Recorded ?Confirmed ?Last Taken ?Type cyanocobalamin (vitamin B-12) 500 500 mcg PO BID 10/27/21 04/10/25 Unknown History mcg tablet docusate sodium 100 mg capsule 100 mg PO BID 10/27/21 04/10/25 Unknown History (Colace) denosumab 60 mg/mL subcutaneous 60 mg subcut [id number] 04/06/22 04/10/25 Unknown History syringe (Prolia) tizanidine 4 mg capsule 4 mg PO QHS PRN Spasms 09/07/22 04/10/25 Unknown History calcium citrate 500 mg PO BID 03/27/24 04/10/25 Unknown History Allergies Allergy/AdvReac Type Severity Reaction Status Date / Time NSAIDS (Non-Steroidal AdvReac Severe BARIATRIC Verified 04/10/25 11:44 Anti-Inflamma PATIENT PMFSH Past Medical History Medical History Spinal cord stimulator status Hx of pulmonary embolus History of tobacco use Nocturnal hypoxia Insulin resistance Obesity (BMI 30-39.9) Hypertension Hiatal hernia Normal endoscopy History of vaginal delivery Cervical vertebral fusion Surgical History Surgical History H/O gastric bypass S/P gastric bypass H/O kyphoplasty History of cataract removal with insertion of prosthetic lens History of total left knee replacement (TKR) [place] teeth removed History of appendectomy History of cholecystectomy History of laminectomy Family History Family History Father Depression Family history of lung cancer Sibling Family history of lung cancer Mother Bipolar 1 disorder Social History Social History Smoking packs per day: 1 Smoking cigarettes per day: 20.0 Years smoked: 40 Smoking pack-years: 40.00 Smoking status: Former smoker Tobacco type: cigarettes Second hand tobacco smoke exposure: No Smoking end date: 07/24/13 Alcohol intake: current Alcohol use details: Socially Substance use: never Substance use type: does not use Current Housing: Decline to Answer Concerned About Future Housing: Decline to Answer Difficulty Paying Gas/Electric Bills: Decline to Answer Difficulty Paying for Meds: Decline to Answer Currently Unemployed: Decline to Answer Education: Decline to Answer Difficulty w/ Childcare or Family Care: Decline to Answer Living arrangements: with family Occupation/Education: retired 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 Gender identity (if verbalized by the patient): Female Sexual Orientation (if Verbalized by the Patient): Straight or Heterosexual Spiritual care concerns: No Agree to blood products: Yes Course Vital Signs Vital signs: Vital Signs Temperature 36.6 C 04/10/25 12:42 Pulse Rate 66 04/10/25 12:42 Respiratory Rate 16 04/10/25 12:42 Blood Pressure 124/54 L 04/10/25 12:42 Pulse Oximetry 99 04/10/25 12:42 Temperature 36.6 C 04/10/25 12:42 Pulse Rate 66 04/10/25 12:42 Respiratory Rate 16 04/10/25 12:42 Blood Pressure 124/54 L 04/10/25 12:42 Pulse Oximetry 99 04/10/25 12:42 Discharge Plan Discharge Clinical Impression: Closed head injury Fall as cause of accidental injury at home as place of occurrence Qualifiers: Encounter type: initial encounter Qualified Code(s): W19.XXXA - Unspecified fall, initial encounter Patient Disposition: Elopement After Seen by Prov Patient Language: Maldivian Prescriptions: No Action cyanocobalamin (vitamin B-12) 500 mcg tablet 500 mcg PO BID docusate sodium [Colace] 100 mg capsule 100 mg PO BID albuterol sulfate 90 mcg/actuation HFA aerosol inhaler 1 - 2 inh inhalation Q4-6H PRN (Reason: shortness of breath or wheezing) Qty: 8.5 5RF calcium citrate 200 mg (950 mg) tablet 500 mg PO BID tizanidine 4 mg capsule 4 mg PO QHS PRN (Reason: Spasms) fluticasone propion-salmeterol 113-14 mcg/actuation aerosol powdr breath activated 1 inh inhalation BID Qty: 1 11RF Rx Instructions: Rinse mouth and spit after each use azelastine [Astepro Allergy] 205.5 mcg (0.15 %) spray,non-aerosol 2 spray intranasal DAILY Qty: 30 1RF Rx Instructions: administer into each nostril Prolia 60 mg/mL Syringe 60 mg SUBCUT [id number] fluticasone propionate 50 mcg/actuation spray,suspension 1 spray intranasal Q12H Qty: 16 3RF Rx Instructions: administer into each nostril potassium chloride 10 mEq capsule, extended release 10 meq PO .EVERY OTHER DAY Qty: 30 2RF Eliquis 5 mg tablet 5 mg PO BID Qty: 60 3RF hydrochlorothiazide 12.5 mg capsule 12.5 mg PO DAILY PRN (Reason: other) Qty: 30 3RF Follow-up/Referrals: Sonya Cabezas MD [Primary Care Provider, Family Practice]
--- OUTSIDE RECORDS SUMMARY | 2025-04-10 13:05 | XMS_ITS | Clinical Summary ---
Author Organization [place] [id number] [facility] Address [address] [place] [address] Care Team Providers Care Biometrics Consultant Name Role Phone Sonya Cabezas MD Primary Care Provider Hitesh Perdue MD Unavailable [phone] Matthew Palmer NP Unavailable Allergies Active Allergy Reactions Criticality Noted Date [...] will continue comprehensive eye care with Dr. aDvid Ya, OD . Assessment & Plan (01/11/2023 [...] diabetic nephropat hy 10/22/2021 No diagnosis on [place] I 07/06/2021 Dyspnea on exertion 08/28/2020 Deep vein thrombosis (DVT) 07/31/2020 Primary osteoarthritis of left knee 07/12/2016 Primary osteoarthritis of both knees 12/28/2015 Knee pain 09/11/2015 Resolved Problems Problem Noted Date Diagnosed Date Resolved Date Morbid obesity 07/06/2021 10/24/2023 BMI 40.0-44.9, adult 06/14/2021 024 Encounters Date Type Department Care Team Description 04/09/2025 8:49 AM CDT - 04/09/2025 11:59 PM CDT Hospital Encounter [facility] [address] [place] [id number] Hitesh Perdue MD Myalgia (Primary Dx); Thoracic spondylosis; 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 Discharge Disposition: Discharge to home or self care 04/08/2025 10:00 AM CDT Infusion [facility] [address] [place] [id number] Age-related osteoporosis without current pathological fracture (Primary Dx) 03/31/2025 Telephone [facility] [address] [place] [address] [address] [place] [address] Farhana Holder 03/31/2025 Telephone [facility] [address] [place] [address] [address] [place] [address] Farhana Holder 03/11/2025 9:44 AM CDT - 03/11/2025 11:59 PM CDT Hospital Encounter [facility] [address] [place] [address] Matthew Palmer NP Thoracic spondylosis (Primary Dx); 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 Discharge Disposition: Discharge to home or self care 03/04/2025 9:48 AM CDT - 03/04/2025 11:59 PM CDT Hospital Encounter [facility] [address] [place] [address] Hitesh Perdue MD Thoracic spondylosis [M47.814] (Primary Dx); Chronic thoracic back pain, unspecified back pain laterality; Chronic left-sided thoracic back pain Discharge Disposition: Discharge to home or self care 02/20/2025 Telephone [facility] [address] [place] [address] Jason Zavaleta NP 02/19/2025 9:43 AM CDT - 02/19/2025 11:59 PM CDT Hospital Encounter [facility] [address] [place] [address] Jason Zavaleta NP Thoracic spondylosis (Primary Dx); 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; Chronic bilateral thoracic back pain Discharge Disposition: Discharge to home or self care 02/05/2025 9:52 AM CDT - 02/05/2025 11:59 PM CDT Hospital Encounter [facility] [address] [place] [address] Hitesh Perdue MD Thoracic spondylosis [M47.814] (Primary Dx); Chronic thoracic back pain, unspecified back pain laterality; Chronic left-sided thoracic back pain; Other spondylosis, thoracolumbar region; Thoracic spine pain [M54.6] Discharge Disposition: Discharge to home or self care 01/14/2025 10:21 AM CDT - 01/14/2025 11:59 PM CDT Hospital Encounter [facility] [address] [place] [address] Hitesh Perdue MD Chronic thoracic back pain, [...] Back Surgery - (Added by TW Conv) ME CHOLECYSTECTOMY Cholecystectomy - (Added by TW Conv) [...] on file Legal Sex Female 1:15 AM COMMERCIAL FIELD INSPECTOR Gender Identity Not on file Sexual Orientation [...] HEPATITIS PANEL, ACUTE Routine 07/03/2020 6:15 AM COMMERCIAL FIELD INSPECTOR from Last 3 Months or Most Recently Relevant to Health Maintenance Results * Imaging Peripheral Nerve Stim Placement ([id number]) (03/04/2025 11:02 AM CDT) Narrative RAD_PACS_ - 03/04/2025 11:02 AM CDT The images from this study are not interpreted by Radiology. Please refer to the physician's procedure / OR operative note. Hitesh Perdue MD IM PAIN MGMT PROCEDU RES Final Result Performing Organization Address [facility] de Phone Number RAD_PACS_CH * Imaging Lumbar/Sacral Facet Medial Branch Block Left ([id number]) (02/05/2025 10:37 AM CDT) Narrative RAD_PACS_ - 02/05/2025 10:38 AM CDT The images from this study are not interpreted by Radiology. Please refer to the physician's procedure / OR operative note. Hitesh Perdue MD IM PAIN MGMT PROCEDU RES Final Result Performing Organization Address [facility] Phone Number RAD_PACS_CH * Dexa TBS Axial Skeleton Bone Density 1 or more sites (04/09/2024 9:49 AM CDT) Anatomical Region Laterality Modality Wrist, Body N/A Radiographic Lynn ging Narrative 04/09/2024 6:46 PM CDT Patient Name: Dominga Reynaga Date of : 1950 Date of scan: 04/09/2024 Bone mineral density was performed on a Piehole Discovery Densitometer. Based on machine cross-calibration and [...] by the International Society of Clinical Densitometry. [id number] Maggy Cortez MD IMG DXA PROCEDURES Final [...] LAB BLOOD ORDERABLES Final Re sult [facility] Department [place] [address] * Hemoglobin A1c (01/01/2022 11:39 AM CDT) Hgb A1C 5.1 4.0 - 5.6 % [facility] Estimated Average Glucose 100 mg/dL [facility] Comment: The ADA recommends reporting an estimated Average Glucose (eAG) with all Hemoglobin A1c results using the equation derived from a study of 507 normal and diabetic adults. Minority populations were underrepresented and children were not included. (Diabetes Care 31:8906-7414, 2008). The eAG is not equivalent to a fasting glucose. Blood 01/01/2022 11:3 9 AM CDT 01/01/2022 11:42 AM CDT us Moris Gordon MD LAB BLOOD ORDERABLES Final Result [facility] [address] [facility] Department [place] [address] * Lipid panel (01/01/2022 11:39 AM CDT) [...] Gordon MD LAB BLOOD ORDERABLES Final Result [facility] [address] [facility] Department [place] [address] * Hepatitis panel, acute (07/03/2020 6:15 AM COMMERCIAL FIELD INSPECTOR) HepBsAg NONREACT NONREACTIVE [facility] Comment: Siemens CentaurXP using ANGÉLICA (chemiluminescent immunoassay) technology. NONREACTIVE: IgM antibodies to Hepatitis B Surface antigen not detected. REACTIVE: IgM antibodies to Hepatitis B Surface antigen detected. Reactive results will be confirmed by neutralization testing. HBsAb qn <3.10 mIU/mL [facility] Comment: Siemens CentaurXP using ANGÉLICA (chemiluminescent immunoassay) technology. 9.99 IU/L or less.....NONREACTIVE: IgM antibodies to Hepatitis B Surface antibody are not detected. 10.00 IU/L or greater..REACTIVE: IgM antibodies to Hepatitis B Surface antibody are detected. Hep B core IgM NONREACT NONREACTIVE [facility] Comment: Siemens CentaurXP using ANGÉLICA (chemiluminescent immunoassay) technology. NONREACTIVE: IgM antibodies to Hepatitis B Core antigen not detected. EQUIVOCAL: IgM antibodies to Hepatitis B Core antigen may or may not be present. Obtain a new specimen and retest. REACTIVE: IgM antibodies to Hepatitis B Core antigen detected. Hep A IgM NONREACT NONREACTIVE [facility] Comment: Siemens CentaurXP using ANGÉLICA (chemiluminescent immunoassay) technology. NONREACTIVE: IgM antibodies to Hepatitis A not detected. This does not exclude possibility of exposure to Hepatitis A or early acute infection. EQUIVOCAL:IgM antibodies to Hepatitis A may or may not be present. Suggest recollection and retest. REACTIVE: Antibodies to Hepatitis A detected. Hep C Ab NONREACT NONREACTIVE [facility] Comment: Siemens CentaurXP using ANGÉLICA (chemiluminescent immunoassay) [...] by real-time PCR method. 07/03/2020 6:15 AM COMMERCIAL FIELD INSPECTOR 07/03/2020 6:19 AM COMMERCIAL FIELD INSPECTOR Narrative Resulting Agency Comment IN Akanksha Amarilys Arriaza DO LAB MICROBIOLOGY - GENERAL OR DERABLES Final Result [place] [address] [place] [address], [facility] [phone] from Last 3 Months or Most Recently Relevant to Health Maintenance Insurance [facility] MEDICARE MEDICARE AETNA SENIOR SUPPLEMENT AETNA MEDICARE AETNA SENIOR SUPPLEMENT Advance Directives For more information, please contact: [phone] * Full Code (Latest Code Status on File) Date Activated Date Inactivated Comments 01/01/2022 11:24 AM 01/06/2022 7:11 PM * Full Code Date Activated Date Inactivated Comments 10/21/2021 3:06 PM 10/23/2021 7:07 PM Care Teams Biometrics Consultant Relationship Specialty Start Date End Date Sonya Cabezas MD PCP - General Family Medicine 04/10/24 [place] [address] [facility] [address] [facility] [place] [address] Consulting Physician Pain Management 03/11/25 [place] [address] [facility] [address] [place] [address] Nurse Practitioner Nurse Practitioner 03/11/25
--- OUTSIDE RECORDS SUMMARY | 2025-04-10 13:05 | XMS_ITS | Encounter Summary ---
Author Organization [facility] Address [address] [place] [address] Care Team Providers Care Radar Mechanic Name Role Phone Unavailable Primary Care Provider Unavailabl e Encounter Details Date Type Department Care Team (Late st Contact Info) Description 02/07/2004 Outpatient Historical [facility] Internal Medicine [address] [place] [address] Jh Nieves MD [address] [facility] [address] [place] [address] Social History Tobacco Use Types Packs/Day Years Used Date Smoking Tobacco: Never Assessed Comments Unknown Sex and Gender Information Value Date Recorded Sex Assigned at Not on file Legal Sex Female 4:05 AM FRICKERTRON CHECKER Gender Identity Not on file Sexual Orientation Not on file documented as of this encounter Plan of Treatment Not on file documented as of this encounter Visit Diagnoses Not on filedocumented in this encounter
--- OUTSIDE RECORDS SUMMARY | 2025-04-10 13:05 | XMS_ITS | Clinical Summary ---
Author Organization [facility] Address [address] [facility] [address] [place]: Epic Prelude ADT DAMARIS [place] [address] Care Team Providers Care Lounge Car Attendant Name Role Phone Unavailable Primary Care Provider Unavailabl e Social History Tobacco Use Types Packs/Day Years Used Date Smoking Tobacco: Never Assessed Comments Unknown Sex and Gender Information Value Date Recorded Sex Assigned at Not on file Legal Sex Female 4:05 AM CHOKER HOOKER Gender Identity Not on file Sexual Orientation [...]
--- OUTSIDE RECORDS SUMMARY | 2025-04-10 13:05 | XMS_ITS | Encounter Summary ---
Author Organization [facility] Address [address] [place] [address] Care Team Providers Care Mold Parter Name Role Phone Unavailable Primary Care Provider Unavailabl e Encounter Details Date Type Department Care Team (Late st Contact Info) Description 09/27/2003 Outpatient Historical [facility] Internal Medicine [address] [place] [address] Jh Nieves MD [address] [facility] [address] [place] [address] Social History Tobacco Use Types Packs/Day Years Used Date Smoking Tobacco: Never Assessed Comments Unknown Sex and Gender Information Value Date Recorded Sex Assigned at Not on file Legal Sex Female 4:05 AM CURRICULUM DEVELOPER Gender Identity Not on file Sexual Orientation Not on file documented as of this encounter Plan of Treatment Not on file documented as of this encounter Visit Diagnoses Not on filedocumented in this encounter
--- OUTSIDE RECORDS SUMMARY | 2025-04-10 13:05 | XMS_ITS | Encounter Summary ---
Author Organization [facility] Address [address] [place] [address] Care Team Providers Care Appliance Assembler Name Role Phone Unavailable Primary Care Provider Unavailabl e Encounter Details Date Type Department Care Team (Late st Contact Info) Description 05/24/2003 Outpatient Historical [facility] Internal Medicine [address] [place] [address] Jh Nieves MD [address] [facility] [address] [place] [address] Social History Tobacco Use Types Packs/Day Years Used Date Smoking Tobacco: Never Assessed Comments Unknown Sex and Gender Information Value Date Recorded Sex Assigned at Not on file Legal Sex Female 4:05 AM ACADEMIC COUNSELOR Gender Identity Not on file Sexual Orientation Not on file documented as of this encounter Plan of Treatment Not on file documented as of this encounter Visit Diagnoses Not on filedocumented in this encounter
--- OUTSIDE RECORDS SUMMARY | 2025-04-10 13:05 | XMS_ITS | Encounter Summary ---
Author Organization [facility] Address [address] [place] [address] Care Team Providers Care Community Nurse Name Role Phone Unavailable Primary Care Provider Unavailabl e Encounter Details Date Type Department Care Team (Late st Contact Info) Description 02/07/2004 Outpatient Historical [facility] Internal Medicine [address] [place] [address] Jh Nieves MD [address] [facility] [address] [place] [address] Social History Tobacco Use Types Packs/Day Years Used Date Smoking Tobacco: Never Assessed Comments Unknown Sex and Gender Information Value Date Recorded Sex Assigned at Not on file Legal Sex Female 4:05 AM LEAD ASSEMBLER Gender Identity Not on file Sexual Orientation Not on file documented as of this encounter Plan of Treatment Not on file documented as of this encounter Visit Diagnoses Not on filedocumented in this encounter
--- OUTSIDE RECORDS SUMMARY | 2025-04-10 13:05 | XMS_ITS | Clinical Summary ---
Author Organization [facility] Address [address] [place] [address] Care Team Providers Care Set Rider Name Role Phone Unavailable Primary Care Provider [...]
--- OUTSIDE RECORDS SUMMARY | 2025-04-10 13:05 | XMS_ITS | Encounter Summary ---
Author Organization [facility] Address [address] [place] [address] Care Team Providers Care Geek Squad Manager Name Role Phone Unavailable Primary Care Provider Unavailabl e Encounter Details Date Type Department Care Team (Late st Contact Info) Description 08/14/2004 Outpatient Historical [facility] Internal Medicine [address] [place] [address] Jh Nieves MD [address] [facility] [address] [place] [address] Social History Tobacco Use Types Packs/Day Years Used Date Smoking Tobacco: Never Assessed Comments Unknown Sex and Gender Information Value Date Recorded Sex Assigned at Not on file Legal Sex Female 4:05 AM PROMOTIONS EXECUTIVE Gender Identity Not on file Sexual Orientation Not on file documented as of this encounter Plan of Treatment Not on file documented as of this encounter Visit Diagnoses Not on filedocumented in this encounter
--- OUTSIDE RECORDS SUMMARY | 2025-04-10 13:05 | XMS_ITS | Encounter Summary ---
Author Organization [facility] Address [address] [place] [address] Care Team Providers Care Civil Defense Director Name Role Phone Unavailable Primary Care Provider Unavailabl e Encounter Details Date Type Department Care Team (Late st Contact Info) Description 05/24/2003 Outpatient Historical [facility] Internal Medicine [address] [place] [address] Jh Nieves MD [address] [facility] [address] [place] [address] Social History Tobacco Use Types Packs/Day Years Used Date Smoking Tobacco: Never Assessed Comments Unknown Sex and Gender Information Value Date Recorded Sex Assigned at Not on file Legal Sex Female 4:05 AM LIBRARY SERVICES DEAN Gender Identity Not on file Sexual Orientation Not on file documented as of this encounter Plan of Treatment Not on file documented as of this encounter Visit Diagnoses Not on filedocumented in this encounter
--- OUTSIDE RECORDS SUMMARY | 2025-04-10 13:05 | XMS_ITS | Clinical Summary ---
Author Organization [facility] Address [address] [facility] [place] [address] Care Team Providers Care Alarm Operator Name Role Phone Quinton Cade MD Unavailable [phone] Sonya Cabezas MD Primary Care Provider [phone] Source Comments [facility],non-owned Affiliates and Associated Physician Practices is amultiple site organization consisting of ambulatory clinics and hospital sitesin [place], [place], [place] and [place]. This disclosure is being madepursuant to the Care Everywhere program and may not contain all information available regarding this patient. Last updated 18.[facility] Allergies No known active allergies Medications * [...] once daily Active vitamin D, ergocalciferol, (DRISDOL) 23930 UNITS capsule Take 50,000 Units by mouth [...] on file Legal Sex Female 1:30 PM PHOTOGRAPH FINISHER Gender Identity Not on file Sexual Orientation [...] to complete this [place] [place] [address] [employer] SendRR [id number] [employer] MEDICARE A[employer] * Guarantor: [id number] Account Type Relation to Patient Date of Phone Billing Address Workers Comp Employer [employer] * Guarantor: [id number] Account Type Relation to Patient Date of Phone Billing Address Workers Comp Employer Care Teams Alarm Operator Relationship Specialty Start Date End Date Sonya Cabezas MD [address] [place] [address] PCP - General 05/03/22 [place] [address] [address] Orthopedic Surgery 12/28/15
--- OUTSIDE RECORDS SUMMARY | 2025-04-10 13:05 | XMS_ITS | Encounter Summary ---
Author Organization [facility] Address [address] [place] [address] Care Team Providers Care Advertising Layout Worker Name Role Phone Unavailable Primary Care Provider Unavailabl e Encounter Details Date Type Department Care Team (Late st Contact Info) Description 05/24/2003 Outpatient Historical [facility] Internal Medicine [address] [place] [address] Jh Nieves MD [address] [facility] [address] [place] [address] Social History Tobacco Use Types Packs/Day Years Used Date Smoking Tobacco: Never Assessed Comments Unknown Sex and Gender Information Value Date Recorded Sex Assigned at Not on file Legal Sex Female 4:05 AM SENIOR PHARMACY TECHNICIAN Gender Identity Not on file Sexual Orientation Not on file documented as of this encounter Plan of Treatment Not on file documented as of this encounter Visit Diagnoses Not on filedocumented in this encounter
--- OUTSIDE RECORDS SUMMARY | 2025-04-10 13:05 | XMS_ITS | Encounter Summary ---
Author Organization [facility] Address [address] [place] [address] Care Team Providers Care Hairspring Cutter Name Role Phone Unavailable Primary Care Provider Unavailabl e Encounter Details Date Type Department Care Team (Late st Contact Info) Description 12/31/2004 Outpatient Historical [facility] Internal Medicine [address] [place] [address] Jh Nieves MD [address] [facility] [address] [place] [address] Social History Tobacco Use Types Packs/Day Years Used Date Smoking Tobacco: Never Assessed Comments Unknown Sex and Gender Information Value Date Recorded Sex Assigned at Not on file Legal Sex Female 4:05 AM SPECIALIZED DEVELOPER Gender Identity Not on file Sexual Orientation Not on file documented as of this encounter Plan of Treatment Not on file documented as of this encounter Visit Diagnoses Not on filedocumented in this encounter
--- OUTSIDE RECORDS SUMMARY | 2025-04-10 13:05 | XMS_ITS | Encounter Summary ---
Author Organization [facility] Address [address] [place] [address] Care Team Providers Care Dental Insurance Coordinator Name Role Phone Unavailable Primary Care Provider Unavailabl e Encounter Details Date Type Department Care Team (Late st Contact Info) Description 08/14/2004 Outpatient Historical [facility] Internal Medicine [address] [place] [address] Jh Nieves MD [address] [facility] [address] [place] [address] Social History Tobacco Use Types Packs/Day Years Used Date Smoking Tobacco: Never Assessed Comments Unknown Sex and Gender Information Value Date Recorded Sex Assigned at Not on file 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
--- OUTSIDE RECORDS SUMMARY | 2025-04-10 13:05 | XMS_ITS | Encounter Summary ---
Author Organization [facility] Address [address] [place] [address] Care Team Providers Care Clinical Services Consultant Name Role Phone Unavailable Primary Care Provider Unavailabl e Encounter Details Date Type Department Care Team (Late st Contact Info) Description 09/09/2004 Outpatient Historical [facility] Internal Medicine [address] [place] [address] Franny Smith MD [address] [place] [address] Social History Tobacco Use Types Packs/Day Years Used Date Smoking Tobacco: Never Assessed Comments Unknown Sex and Gender Information Value Date Recorded Sex Assigned at Not on file 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
--- OUTSIDE RECORDS SUMMARY | 2025-04-10 13:05 | XMS_ITS | Encounter Summary ---
Author Organization [facility] Address [address] [place] [address] Care Team Providers Care Medical Billing And Coding Specialist Name Role Phone Unavailable Primary Care Provider Unavailabl e Encounter Details Date Type Department Care Team (Late st Contact Info) Description 02/22/2003 Outpatient Historical [facility] Internal Medicine [address] [place] [address] Jh Nieves MD [address] [facility] [address] [place] [address] Social History Tobacco Use Types Packs/Day Years Used Date Smoking Tobacco: Never Assessed Comments Unknown Sex and Gender Information Value Date Recorded Sex Assigned at Not on file 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
--- OUTSIDE RECORDS SUMMARY | 2025-04-10 13:05 | XMS_ITS | Encounter Summary ---
Author Organization [facility] Address [address] [place] [address] Care Team Providers Care Manufacturer Agent Name Role Phone Unavailable Primary Care Provider Unavailabl e Encounter Details Date Type Department Care Team (Late st Contact Info) Description 12/31/2004 Outpatient Historical [facility] Internal Medicine [address] [place] [address] Jh Nieves MD [address] [facility] [address] [place] [address] Social History Tobacco Use Types Packs/Day Years Used Date Smoking Tobacco: Never Assessed Comments Unknown Sex and Gender Information Value Date Recorded Sex Assigned at Not on file 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
--- OUTSIDE RECORDS SUMMARY | 2025-04-10 13:05 | XMS_ITS | Encounter Summary ---
Author Organization [facility] Address [address] [place] [address] Care Team Providers Care Nurse Transitional Name Role Phone Unavailable Primary Care Provider Unavailabl e Encounter Details Date Type Department Care Team (Late st Contact Info) Description 10/26/2002 Outpatient Historical [facility] Internal Medicine [address] [place] [address] Jh Nieves MD [address] [facility] [address] [place] [address] Social History Tobacco Use Types Packs/Day Years Used Date Smoking Tobacco: Never Assessed Comments Unknown Sex and Gender Information Value Date Recorded Sex Assigned at Not on file 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
--- OUTSIDE RECORDS SUMMARY | 2025-04-10 13:05 | XMS_ITS | Encounter Summary ---
Author Organization [place] [facility] Address [address] [place] [address] Care Team Providers Care Furniture Mover Helper Name Role Phone Unavailable Primary Care Provider Unavailabl e Encounter Details Date Type Department Care Team (Late st Contact Info) Description 08/14/2004 Outpatient Historical [facility] Internal Medicine [address] [place] [address] Jh Nieves MD [address] [facility] [address] [place] [address] Social History Tobacco Use Types Packs/Day Years Used Date Smoking Tobacco: Never Assessed Comments Unknown Sex and Gender Information Value Date Recorded Sex Assigned at Not on file Legal Sex Female 4:05 AM FIRST RESPONDER Gender Identity Not on file Sexual Orientation Not on file documented as of this encounter Plan of Treatment Not on file documented as of this encounter Visit Diagnoses Not on filedocumented in this encounter
--- OUTSIDE RECORDS SUMMARY | 2025-04-10 13:05 | XMS_ITS | Encounter Summary ---
Author Organization [facility] Address [address] [place] [address] Care Team Providers Care Police Commissioner Name Role Phone Unavailable Primary Care Provider Unavailabl e Encounter Details Date Type Department Care Team (Late st Contact Info) Description 02/07/2004 Outpatient Historical [facility] Internal Medicine [address] [place] [address] Jh Nieves MD [address] [facility] [address] [place] [address] Social History Tobacco Use Types Packs/Day Years Used Date Smoking Tobacco: Never Assessed Comments Unknown Sex and Gender Information Value Date Recorded Sex Assigned at Not on file 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
--- OUTSIDE RECORDS SUMMARY | 2025-04-10 13:05 | XMS_ITS | Encounter Summary ---
Author Organization [facility] Address [address] [place] [address] Care Team Providers Care Smt Technician Name Role Phone Unavailable Primary Care Provider Unavailabl e Encounter Details Date Type Department Care Team (Late st Contact Info) Description 09/27/2003 Outpatient Historical [facility] Internal Medicine [address] [place] [address] Jh Nieves MD [address] [facility] [address] [place] [address] Social History Tobacco Use Types Packs/Day Years Used Date Smoking Tobacco: Never Assessed Comments Unknown Sex and Gender Information Value Date Recorded Sex Assigned at Not on file Legal Sex Female 4:05 AM NNPS Gender Identity Not on file Sexual Orientation Not on file documented as of this encounter Plan of Treatment Not on file documented as of this encounter Visit Diagnoses Not on filedocumented in this encounter
--- OUTSIDE RECORDS SUMMARY | 2025-04-10 13:05 | XMS_ITS | Encounter Summary ---
Author Organization [facility] Address [address] [place] [address] Care Team Providers Care Burning Plant Operator Name Role Phone Unavailable Primary Care Provider Unavailabl e Encounter Details Date Type Department Care Team (Late st Contact Info) Description 02/07/2004 Outpatient Historical [facility] Internal Medicine [address] [place] [address] Jh Nieves MD [address] [facility] [address] [place] [address] Social History Tobacco Use Types Packs/Day Years Used Date Smoking Tobacco: Never Assessed Comments Unknown Sex and Gender Information Value Date Recorded Sex Assigned at Not on file 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
--- OUTSIDE RECORDS SUMMARY | 2025-04-10 13:05 | XMS_ITS | Encounter Summary ---
Author Organization [facility] Address [address] [place] [address] Care Team Providers Care Search Developer Name Role Phone Unavailable Primary Care Provider Unavailabl e Encounter Details Date Type Department Care Team (Late st Contact Info) Description 12/31/2004 Outpatient Historical [facility] Internal Medicine [address] [place] [address] Jh Nieves MD [address] [facility] [address] [place] [address] Social History Tobacco Use Types Packs/Day Years Used Date Smoking Tobacco: Never Assessed Comments Unknown Sex and Gender Information Value Date Recorded Sex Assigned at Not on file 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
--- OUTSIDE RECORDS SUMMARY | 2025-04-10 13:05 | XMS_ITS | Encounter Summary ---
Author Organization [facility] Address [address] [place] [address] Care Team Providers Care Healthcare Interpreter Name Role Phone Unavailable Primary Care Provider Unavailabl e Encounter Details Date Type Department Care Team (Late st Contact Info) Description 02/07/2004 Outpatient Historical [facility] Internal Medicine [address] [place] [address] Jh Nieves MD [address] [facility] [address] [place] [address] Social History Tobacco Use Types Packs/Day Years Used Date Smoking Tobacco: Never Assessed Comments Unknown Sex and Gender Information Value Date Recorded Sex Assigned at Not on file 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
--- NOTE | 2025-04-10 14:17 | PC.NURSE ---
Patient electing to leave as her results are visible on the Portal-she will call Dr Shaver office. Patient ambulatory out of waiting room/down exit cheek with steady gait
== END 2025-04-10 17:28 | disposition left against medical advice (07) ==
PROVIDERS: Emergency Provider Registered Nurse; PCP Family Medicine
DX: S01.81XA Laceration without foreign body of other part of head, initial encounter (principal); S00.12XA Contusion of left eyelid and periocular area, initial encounter; S00.11XA Contusion of right eyelid and periocular area, initial encounter; I10 Essential (primary) hypertension; E66.9 Obesity, unspecified; Z68.28 Body mass index [BMI] 28.0-28.9, adult; K44.9 Diaphragmatic hernia without obstruction or gangrene; Z98.1 Arthrodesis status; Z98.84 Bariatric surgery status; Z96.82 Presence of neurostimulator; Z86.711 Personal history of pulmonary embolism; Z96.1 Presence of intraocular lens; Z87.891 Personal history of nicotine dependence; Z98.49 Cataract extraction status, unspecified eye; Z96.652 Presence of left artificial knee joint; Z90.49 Acquired absence of other specified parts of digestive tract; Z79.01 Long term (current) use of anticoagulants; Z79.620 Long term (current) use of immunosuppressive biologic; W19.XXXA Unspecified fall, initial encounter
CPT/HCPCS: 70450; 70486; 72125; 72220; 99284

== ENCOUNTER 2025-05-07 14:49 | Outpatient (CLI) | payer MEDICARE, SELFPAY ==
--- NOTE | ~2025-05-07 | MM_ITS ---
EXAMINATION: MM screening jose luis BI w chuyita HISTORY: Screening TECHNIQUE: Craniocaudal and mediolateral oblique 3-D tomosynthesis images were obtained and synthetic 2-D images were generated. CAD analysis was submitted and interpreted. COMPARISON: 04/02/2024 BREAST PARENCHYMAL COMPOSITION: There are scattered areas of fibroglandular density. FINDINGS: There is no evidence of suspicious mass, calcification, or architectural distortion to suggest malignancy. There has been no suspicious interval change. IMPRESSION: 1. No mammographic evidence of malignancy. Recommend routine screening mammography in one year. BI-RADS Category 2: Benign finding(s) Reviewed, dictated and finalized at location Q. IMPRESSION: 1. No mammographic evidence of malignancy. Recommend routine screening mammogra phy in one year. BI-RADS Category 2: Benign finding(s)
--- OUTSIDE RECORDS SUMMARY | 2025-05-07 17:07 | XMS_ITS | Encounter Summary ---
Author Organization [facility] Address [address] [place] [address] Care Team Providers Care Frame Carver Spindle Name Role Phone Unavailable Primary Care Provider Unavailabl e Encounter Details Date Type Department Care Team (Late st Contact Info) Description 10/26/2002 Outpatient Historical [facility] Internal Medicine [address] [place] [address] Jh Nieves MD [address] [facility] [address] [place] [address] Social History Tobacco Use Types Packs/Day Years Used Date Smoking Tobacco: Never Assessed Comments Unknown Sex and Gender Information Value Date Recorded Sex Assigned at Not on file 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
--- OUTSIDE RECORDS SUMMARY | 2025-05-07 17:07 | XMS_ITS | Encounter Summary ---
Author Organization [facility] Address [address] [place] [address] Care Team Providers Care Hand Fabric Cutter Name Role Phone Unavailable Primary Care Provider Unavailabl e Encounter Details Date Type Department Care Team (Late st Contact Info) Description 05/24/2003 Outpatient Historical [facility] Internal Medicine [address] [place] [address] Jh Nieves MD [address] [facility] [address] [place] [address] Social History Tobacco Use Types Packs/Day Years Used Date Smoking Tobacco: Never Assessed Comments Unknown Sex and Gender Information Value Date Recorded Sex Assigned at Not on file 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
--- OUTSIDE RECORDS SUMMARY | 2025-05-07 17:07 | XMS_ITS | Encounter Summary ---
Author Organization [facility] Address [address] [place] [address] Care Team Providers Care Knocker Off Name Role Phone Unavailable Primary Care Provider Unavailabl e Encounter Details Date Type Department Care Team (Late st Contact Info) Description 08/14/2004 Outpatient Historical [facility] Internal Medicine [address] [place] [address] Jh Nieves MD [address] [facility] [address] [place] [address] Social History Tobacco Use Types Packs/Day Years Used Date Smoking Tobacco: Never Assessed Comments Unknown Sex and Gender Information Value Date Recorded Sex Assigned at Not on file 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
--- OUTSIDE RECORDS SUMMARY | 2025-05-07 17:07 | XMS_ITS | Encounter Summary ---
Author Organization [facility] Address [address] [place] [address] Care Team Providers Care Marketing Recruiter Name Role Phone Unavailable Primary Care Provider Unavailabl e Encounter Details Date Type Department Care Team (Late st Contact Info) Description 12/31/2004 Outpatient Historical [facility] Internal Medicine [address] [place] [address] Jh Nieves MD [address] [facility] [address] [place] [address] Social History Tobacco Use Types Packs/Day Years Used Date Smoking Tobacco: Never Assessed Comments Unknown Sex and Gender Information Value Date Recorded Sex Assigned at Not on file 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
--- OUTSIDE RECORDS SUMMARY | 2025-05-07 17:07 | XMS_ITS | Clinical Summary ---
Author Organization [facility] Address [address] [facility] [place] [address] Care Team Providers Care Bobbin Disker Name Role Phone Quinton Cade MD Unavailable [phone] Sonya Cabezas MD Primary Care Provider [phone] Source Comments [facility],non-owned Affiliates and Associated Physician Practices is amultiple site organization consisting of ambulatory clinics and hospital sitesin [place], [place], [place] and [place]. This disclosure is being madepursuant to the Care Everywhere program and may not contain all information available regarding this patient. Last updated 18.[facility] Allergies No known active allergies Medications * [...] once daily Active vitamin D, ergocalciferol, (DRISDOL) 62047 UNITS capsule Take 50,000 Units by mouth [...] on file Legal Sex Female 1:30 PM FOOD SERVICES COORDINATOR Gender Identity Not on file Sexual Orientation [...] to complete [place] [place] [address] [employer] [id number] [facility] Address: [address] [place] [address] MEDICARE [employer] * Guarantor: [id number] Account Type Relation to Patient Date of Phone Billing Address Workers Comp Employer [employer] * Guarantor: [id number] Account Type Relation to Patient Date of Phone Billing Address Workers Comp Employer Care Teams Bobbin Disker Relationship Specialty Start Date End Date Sonya Cabezas MD [address] [place] [address] PCP - General 05/03/22 [place] [id number] [address] Orthopedic Surgery 12/28/15
--- OUTSIDE RECORDS SUMMARY | 2025-05-07 17:07 | XMS_ITS | Encounter Summary ---
Author Organization [facility] Address [address] [place] [address] Care Team Providers Care Family Medicine Physician Assistant Name Role Phone Unavailable Primary Care Provider Unavailabl e Encounter Details Date Type Department Care Team (Late st Contact Info) Description 09/09/2004 Outpatient Historical [facility] Internal Medicine [address] [place] [address] Franny Smith MD [address] [place] [phone] Social History Tobacco Use Types Packs/Day Years Used Date Smoking Tobacco: Never Assessed Comments Unknown Sex and Gender Information Value Date Recorded Sex Assigned at Not on file 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
--- OUTSIDE RECORDS SUMMARY | 2025-05-07 17:07 | XMS_ITS | Encounter Summary ---
Author Organization [facility] Address [address] [place] [address] Care Team Providers Care Licensed Prosthetist/Orthotist Name Role Phone Unavailable Primary Care Provider Unavailabl e Encounter Details Date Type Department Care Team (Late st Contact Info) Description 09/27/2003 Outpatient Historical [facility] Internal Medicine [address] [place] [address] Jh Nieves MD [address] [facility] [address] [place] [address] Social History Tobacco Use Types Packs/Day Years Used Date Smoking Tobacco: Never Assessed Comments Unknown Sex and Gender Information Value Date Recorded Sex Assigned at Not on file 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
--- OUTSIDE RECORDS SUMMARY | 2025-05-07 17:07 | XMS_ITS | Clinical Summary ---
Author Organization [facility] Address [address] [place] [id number] Care Team Providers Care International Trade Compliance Manager Name Role Phone Unavailable Primary Care [...] Vaccine ( - 2023-2 5 season) 2025 Influenza Adult (#1) 2025 RSV Immunization or 60+ Years (1 [...]
--- OUTSIDE RECORDS SUMMARY | 2025-05-07 17:07 | XMS_ITS | Encounter Summary ---
Author Organization [facility] Address [address] [place] [address] Care Team Providers Care Laminator Preforms Name Role Phone Unavailable Primary Care Provider Unavailabl e Encounter Details Date Type Department Care Team (Late st Contact Info) Description 02/07/[address] [facility] Internal Medicine [address] [place] [address] Jh Nieves MD [address] 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
--- OUTSIDE RECORDS SUMMARY | 2025-05-07 17:07 | XMS_ITS | Encounter Summary ---
Author Organization [facility] Address [address] [place] [address] Care Team Providers Care Coordinator Of Online Programs Name Role Phone Unavailable Primary Care Provider Unavailabl e Encounter Details Date Type Department Care Team (Late st Contact Info) Description 05/24/2003 Outpatient Historical [facility] Internal Medicine [address] [place] [address] Jh Nieves MD [address] [facility] [address] [place] [address] Social History Tobacco Use Types Packs/Day Years Used Date Smoking Tobacco: Never Assessed Comments Unknown Sex and Gender Information Value Date Recorded Sex Assigned at Not on file 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
--- OUTSIDE RECORDS SUMMARY | 2025-05-07 17:07 | XMS_ITS | Clinical Summary ---
Author Organization [facility] Address [address] 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
--- OUTSIDE RECORDS SUMMARY | 2025-05-07 17:07 | XMS_ITS | Encounter Summary ---
Author Organization [facility] Address 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 Name Role Phone Unavailable Primary Care Provider Unavailabl e Encounter Details Date Type Department Care Team (Late st Contact Info) Description 02/07/2004 Outpatient Historical [facility] Internal Medicine [address] [place] [address] Jh Nieves MD [address] [facility] [address] [place] [address] Social History Tobacco Use Types Packs/Day Years Used Date Smoking Tobacco: Never Assessed Comments Unknown Sex and Gender Information Value Date Recorded Sex Assigned at Not on file 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
--- OUTSIDE RECORDS SUMMARY | 2025-05-07 17:07 | XMS_ITS | Data Portability ---
Author Organization [place] - [facility] OFFICE Address [address] [place] [address] Care Team Providers Care Mgmt Specialist Name Role Phone DARRIAN CUNNINGHAM Primary Care Provider Assessment Encounter Date Assessment Date Assessment LastModified by Organization Details LastModified Time 11/01/2022 11/01/2022 Patient Examined by JJ Salazar, Also interviewed / examined by Supervising physician. Assessment / plan discussed and implemented Encounter scribed by JJ Salazar. Documentation reviewed and approved by supervising physician jaimie Not available 11/01/2022 15:20:32 05/17/2023 05/17/2023 Patient Examined by JJ Salazar, Also Documentation reviewed and approved by supervising physician jaimie Not available 05/17/2023 11:34:42 11/15/2023 11/15/2023 Patient Examined by JJ Salazar, Also Documentation reviewed and approved by supervising physician esto Not available 11/14/2023 11:07:36 Plan of Treatment Reminders Order Date Submit Date Provider Last Modified By Organization Details Last Modified Time Details Appointments None recorded. Lab None recorded. Referral None recorded. Procedures None recorded. Surgeries None recorded. Imaging None recorded. Medication Orders Eliquis 5 mg tablet 023 023 [facility] [address] [facility], [place], [address], 11:40:02 Patient TargetsNo targets recorded. Patient Instructions Encounter Date Encounter Id Patient Instructions Last Modified By Organization Details Last Modified Time 11/01/2022 [id number] Exercise advised Low cholesterol diet advised Low sodium diet advised. [email or web address] Not available 11/01/2022 15:25:15 05/17/2023 [id number] Low cholesterol diet advised Low sodium diet advised. [email or web address] Not available 05/17/2023 11:39:53 11/15/2023 [id number] Low cholesterol diet advised Low sodium diet advised. [email or web address] Not available 11/15/2023 11:50:24 Reason for Referral None Reported. Results Created Date Observation Date Name Description Value Unit Range Abnormal Flag Note LastModifiedBy Organization Detail LastModifiedTime 11/08/1911/01/2022 elect rocar diogr am No observ ation record ed. [email or web address] Not Available 2022 10:18:27 05/23/2005/17/2023 elect rocar diogr am No observ ation record ed. [email or web address] Not Available 2022 14:18:27 11/18/19 24 11/15/2023 elect rocar diogr am No observ ation record ed. [email or web address] Not Available 2023 15:08:44 05/14/20 24 05/14/2024 elect rocar diogr am No observ ation record ed. [email or web address] Not Available 2024 09:10:15 05/26/2005/21/2024 , echo ardio gram No observ ation record ed. [email or web address] Not Available 2024 11:44:13 Result Notes None recorded. Problems Name Problem SNOMED Code Status Onset Date Resolution Date Notes Provider Name and Address Organization Details Recorded Time Pulmonary embolism 47259504 Active 2020 Julio Cesar perales [facility] 09:53:02 Deep venous thrombosis 465395806 Active 2020 Julio Cesar perales [facility] 09:53:09 Essential hypertension 30909385 Active 2020 Julio Cesar perales [facility] 09:53:16 Chronic obstructive pulmonary disease 20092245 Active 2020 Julio Cesar perales [facility] 09:53:23 Dyspnea on exertion 68059856 Active 2020 Julio Cesar Solorio null, [facility] 1 12:28:27 Problem Notes None recorded. Medical Equipment None Reported. Allergies Allergen ID Allergen Name Allergen Category Reaction Reaction Severity Criticality Documentation Date Start Date Code Code System Note Provider Name and Address Organization Details Recorded Time 77140 tramadol medicatio n itching mild low 11/01/2022 57278 RxNorm But if pt dcrat ches she gets calix all over. Kalli Cooper null, [place] - [facility] 3 14:52:56 Medications Name Sig Start Date Stop Date Status Note LastModified by Organization Details LastModified Time cyclobenz aprine 10 mg tablet TAKE 1 TABLET BY MOUTH EVERY 8 HOURS NEEDED FOR MUSCLE SPASM 11/14 completed Not Available Not Available Not Available amoxicill in 500 mg capsule TAKE FOUR CAPSULES BY MOUTH ONE HOUR BEFORE APPOINTM ENT 05/17 completed Not Available Not Available Not Available potassium chloride ER 10 mEq capsule,e xtended release TAKE 1 CAPSULE BY MOUTH EVERY OTHER DAY active Not Available Not Available No t Available prednison e 10 mg tablet 05/10 completed pt no longer takes 07/13/20 21 nj Not Available Not Available Not Available azithromy millie 250 mg tablet TAKE 2 TABLETS BY MOUTH ON DAY 1, AND THEN TAKE 1 TABLET BY MOUTH ONCE A DAY ON DAY 2 THROUGH DAY 5 11/14 completed Not Available Not Available Not Available tizanidin e 4 mg tablet TAKE 1 TO 2 TABLETS BY MOUTH 4 TIMES DAILY NEEDED active Not Available Not Available No t Available hydrocodo ne 5 mg-acetam inophen 325 mg tablet TAKE 1 TABLET BY MOUTH TWICE DAILY NEEDED active Not Available Not Available No t Available ondansetr on HCl 4 mg tablet TAKE 1 TABLET BY MOUTH EVERY 6 HOURS NEEDED FOR NAUSEA AND VOMITING 05/10 completed pt no longer takes 01/11/22 nj Not Available Not Available Not Available Ferrex 150 mg iron capsule TAKE 1 CAPSULE BY MOUTH ONCE DAILY 11/14 completed Not Available Not Available Not Available valsartan 80 mg tablet TAKE 1 TABLET BY MOUTH ONCE DAILY 05/10 completed pt no longer takes 01/11/22 nj Not Available Not Available Not Available tretinoin 0.05 % topical cream APPLY A PEA-SIZE D AMOUNT TO FACE ONCE NIGHTLY active Not Available Not Available No t Available omeprazol e 40 mg capsule,d elayed release TAKE 1 CAPSULE BY MOUTH TWICE DAILY 05/10 completed pt no longer takes 01/11/22 nj Not Available Not Available Not Available tramadol 50 mg tablet TAKE 1 TABLET BY MOUTH TWICE DAILY NEEDED active Not Available Not Available No t Available amoxicill in 500 mg tablet TAKE 4 TABLETS BY MOUTH 1 HOUR PRIOR TO EACH DENTAL APPOINTM ENT 08/31 completed Not Available Not Available Not Available cephalexi n 500 mg capsule TAKE 1 CAPSULE BY MOUTH THREE TIMES DAILY FOR 7 DAYS 05/14 completed Not Available Not Available Not Available hyoscyami ne 0.125 mg sublingua l tablet DISSOLVE 1 TABLET UNDER THE TONGUE EVERY 6 HOURS FOR 16 DOSES 05/10 completed pt no longer takes 01/11/22 nj Not Available Not Available Not Available hydrochlo rothiazid e 12.5 mg capsule TAKE 1 CAPSULE BY MOUTH ONCE DAILY NEEDED active Not Available Not Available No t Available omeprazol e 20 mg capsule,d elayed release Take 1 capsule every day by oral route. active Not Available Not Available No t Available scopolami ne 1 mg over [address] 1 PATCH ON THE SKIN ONCE FOR [address] BEHIND EAR AT 8:00 PM THE NIGHT PRIOR TO SURGERY 11/14 completed Not Available Not Available Not Available losartan 50 mg-hydroc hlorothia zide 12.5 mg tablet TAKE 1 TABLET BY MOUTH DAILY. FOLLOW UP APPOINTM ENT DUE MAY 02 completed pt no longer takes 01/11/22 nj Not Available Not Available Not Available fluocinon josette 0.05 % topical cream APPLY TO ELBOW TWICE DAILY FOR THREE WEEKS IN A ROW MAXIMUM active Not Available Not Available No t Available fluticaso ne propionat e 50 mcg/actua tion nasal spray,perico pension USE 1 SPRAY(S) IN EACH NOSTRIL EVERY 12 HOURS active Not Available Not Available No t Available Ventolin HFA 90 mcg/actua tion aerosol inhaler INHALE 1 TO 2 PUFFS BY MOUTH EVERY 4 TO 6 HOURS NEEDED FOR SHORTNES S OF BREATH FOR WHEEZING active Not Available Not Available No t Available oxycodone 5 mg tablet TAKE 1 TABLET BY MOUTH EVERY 6 HOURS NEEDED FOR PAIN active Not Available Not Available No t Available enoxapari n 40 mg/0.4 mL subcutane ous syringe 11/14 completed Not Available Not Available Not Available Stool Softener 11/13 completed Not Available Not Available Not Available multivita min 11/13 completed Not Available Not Available Not Available Calcium Citrate + D 11/13 completed Not Available Not Available Not Available aprepitan t 40 mg capsule TAKE ONE CAPSULE BY MOUTH ONCE FOR 1 DOSE. TAKE AT 8:00 PM ON THE NIGHT PRIOR TO SURGERY 11/14 completed Not Available Not Available Not Available hydrochlo rothiazid e 12.5 mg tablet TAKE 1 TABLET BY MOUTH ONCE DAILY 11/14 completed Not Available Not Available Not Available Prolia 60 mg/mL subcutane ous syringe Inject 1 mL as needed by subcutan eous route. active every 6mo Not Available Not Available Not Available magnesium 400 mg (as magnesium oxide) capsule Take 2 capsules every day by oral route. 05/10 completed pt no longer takes 07/13/20 21 nj Not Available Not Available Not Available Eliquis 5 mg tablet TAKE 1 TABLET BY MOUTH TWICE DAILY active Not Available Not Available No t Available Anoro Ellipta 11/01 completed Not Available Not Available Not Available Stiolto Respimat 2.5 mcg-2.5 mcg/actua tion solution for inhalatio n INHALE 2 PUFFS BY MOUTH EVERY 24 HOURS 05/10 completed pt no longer takes 07/13/20 21 nj Not Available Not Available Not Available Vitamin B12 11/13 completed Not Available Not Available Not Available Narcan 4 mg/actuat ion nasal spray 11/01 completed Not Available Not Available Not Available fluticaso ne 113 mcg-salme terol 14 mcg/actua tion breath activated powdr INHALE 1 PUFF BY MOUTH TWICE DAILY active Not Available Not Available No t Available Tymlos 80 mcg/dose (3,120 mcg/1.56 mL) subcutane ous pen injector Inject every day by subcutan eous route. 11/14 completed Not Available Not Available Not Available Eliquis DVT-PE Treatment 30-Day Starter 5 mg (74 tablets) in dose pack TAKE DIRECTED ON PACKAGIN G 08/31 completed samples x4 given 07/16/20 20 blv mk Not Available Not Available Not Available Breztri Aerospher e 160 mcg-9mcg- 4.8mcg/ac tuation HFA aerosol inhaler INHALE 2 PUFFS BY MOUTH TWICE DAILY. RINSE AND SPIT AFTER EACH USE. USE WITH SPACER. active Not Available Not Available No t Available Vitals Date Recorded Body height Body mass index (BMI) Body weight Oxygen saturation Oxygen saturation in Arterial blood by Pulse oximetry Heart rate Systolic And Diastolic Provider Name and Address Organization Details Last Updated DateTime 3 160.02 cm 30.5 kg/m2 15772.8 9 g 95 % 95 % 63 /min 100/80 mm[Hg] Kalli Cooper [facility] [place] 3 14:59:04 Date Recorded Body height Body mass index (BMI) Body weight Heart rate Oxygen saturation Oxygen saturation in Arterial blood by Pulse oximetry Systolic And Diastolic Provider Name and Address Organization Details Last Updated DateTime 4 160.02 cm 28.2 kg/m2 02180.1 9 g 72 /min 94 % 94 % 96/60 mm[Hg] [facility] [place] 4 11:03:41 Date Recorded Body height Body mass index (BMI) Body weight Heart rate Oxygen saturation Oxygen saturation in Arterial blood by Pulse oximetry Systolic And Diastolic Provider Name and Address Organization Details Last Updated DateTime 2 160.02 cm 32.6 kg/m2 05030 g 63 /min 95 % 95 % 118/68 mm[Hg] [facility] [place] 2 10:17:35 Date Recorded Body height Body mass index (BMI) Body weight Oxygen saturation Oxygen saturation in Arterial blood by Pulse oximetry Heart rate Systolic And Diastolic Provider Name and Address Organization Details Last Updated DateTime 4 160.02 cm 27.3 kg/m2 68511.2 2 g 96 % 96 % 91 /min 92/62 mm[Hg] [facility] [place] 4 11:09:03 Date Recorded Body height Body mass index (BMI) Body weight Heart rate Respiratory rate Oxygen saturation Oxygen saturation in Arterial blood by Pulse oximetry Systolic And Diastolic Provider Name and Address Organization Details Last Updated DateTime 3 160.02 cm 28.9 kg/m2 72329.5 6 g 82 /min 16 /min 90 % 90 % 128/62 mm[Hg] Paul Holder [facility] [place] 3 11:08:18 Social History Question Answer Notes LastModified by Organizat ion Details LastModified Time Tobacco Smoking Status Former Smoker quit 2014 Emiliano Chand diaz [facility] [place] 07/16/2020 10:29:03 Marital Status [email or web address] Information not available 07/16/2020 What Was The Date Of Your Most Recent Tobacco Screening? 07/16/2020 Information not available 08/01/2020 Sex: Unknown Functional Status Question Answer Note LastModified by Organizat ion Details LastModified Time Do you or have you ever used smokeless tobacco? Former smokeless tobacco user Information not available 08/01/2020 Do you or have you ever used e-cigarettes or vape? Never used electronic cigarettes Information not available 08/01/2020 Mental Status None recorded. Family History Nothing Reported. Medical History Condition Response COPD Y Deep Vein Thrombosis Y Hypertension Y Gynecological HistoryNo gynecological history recorded. Obstetrics History GPAL:G 0 P 0 0 0 0 Past Encounters Encounter ID Performer Location Encounter Start Date Encounter Closed Date Diagnosis/Indication Diagnosis SNOMED-CT Code Diagnosis ICD10 Code Diagnosis IMO Codes Diagnosis Note [id number] Emiliano Salazar MD [facility] [address] [place] [address] [place] [address] 07/16/2020 09:55:38 07/16/2020 10:49:01 Follow-up visit 285070415 Z09 Pulmonary embolism 20187 003 I26.99 s/p EKOS ( 0)on Eliquis Essential hypertension 34309111 I10 Restart losartan-H CTZ 50-12.5mg Deep venou s thrombosis 649845534 I82.409 on Eliquis Chronic ob structive pulmonary disease 29806636 J44.9 Instructed to follow-up with pulmonary [id number] Emiliano Salazar MD [facility] [address] [place] [address] 08/03/2020 15:45:43 08/03/2020 16:35:49 Pulmonary embolism 67998534 I26.99 s/p EKOS ( 0)on Eliquis 5mg BID Cardiac CTA 07/23/2020 : 1) Improved but persistent nonocclusi ve emboli in the lower lobes with overall significan t reduction in clot burden since the comparison examinatio n. 2) Severe emphysema. Deep venou s thrombosis 161185948 I82.409 on Eliquis 5mg BIDVenous doppler 07/13/2020 : Negative bilateral venous study Essential hypertension 48955909 I10 Well controlled on current regimen Chronic ob structive pulmonary disease 69730277 J44.9 Instructed to follow-up with pulmonary Dyspnea on exertion 6084 5006 R06.09 Lexiscan Myoview stress test, pt can not walk. Has known coronary artery disease, with atypical symptoms now [id number] MD [facility] [address] [place] [address] 08/31/2020 15:43:10 08/31/2020 16:25:19 Pulmonary embolism 76550547 I26.99 s/p EKOS ( 0)on Eliquis 5mg BID Cardiac CTA 07/23/2020 : 1) Improved but persistent nonocclusi ve emboli in the lower lobes with overall significan t reduction in clot burden since the comparison examinatio n. 2) Severe emphysema. Deep venou s thrombosis 885802477 I82.409 on Eliquis 5mg BIDVenous doppler 07/13/2020 : Negative bilateral venous studyConsi sammy IVUS Essential hypertension 08621321 I10 Well controlled on current regimen Chronic ob structive pulmonary disease 38892725 J44.9 Follows with pulmonary (Dr. Roblero) Dyspnea on exertion 6084 5006 R06.09 Likely 2/2 severe emphysema Lexiscan 08/13/2020 : Adequate Stress with Lexiscan. Negative Lexiscan stress test. Decrease sensitivit y to assess inferior wall due to significan t extracardi ac uptake. Normal LV systolic function. LVEF 58%. [id number] MD [facility] [address] [place] [address] 11/23/2020 14:54:24 11/23/2020 15:28:17 Pulmonary embolism 04731770 I26.99 s/p EKOS ( 0) on Eliquis 5 mg BID Cardiac CTA 07/23/2020 : 1) Improved but persistent nonocclusi ve emboli in the lower lobes with overall significan t reduction in clot burden since the comparison examinatio n. 2) Severe emphysema. Deep venou s thrombosis 546173053 I82.409 on Eliquis 5mg BID Venous doppler 07/13/2020 : Negative bilateral venous study Consider IVUS following completing 6 months of Eliquis Obtain venous reflux study Essential hypertension 60943943 I10 Well controlled on current regimen Chronic ob structive pulmonary disease 91129584 J44.9 Follows with pulmonary (Dr. Santos) Dyspnea on exertion 6084 5006 R06.09 Improved, 2/2 severe emphysema. Follows with pulmonary (Dr. Santos) Lexiscan 08/13/2020 : Adequate Stress with Lexiscan. Negative Lexiscan stress test. Decrease sensitivit y to assess inferior wall due to significan t extracardi ac uptake. Normal LV systolic function. LVEF 58%. Edema of l ower extremity 128617777 R60.0 Obtain echo to evaluate for structural /functiona l disease [id number] Elijah Huston MD [facility] [address] [place] [address] 01/08/2021 11:45:24 01/08/2021 22:31:44 Pulmonary embolism 58227923 I26.99 s/p EKOS ( 0)Okay to stop Eliquis as she has completed 6 months of therapy for first DVT Cardiac CTA 07/23/2020 : 1) Improved but persistent nonocclusi ve emboli in the lower lobes with overall significan t reduction in clot burden since the comparison examinatio n. 2) Severe emphysema. Deep venou s thrombosis 127113655 I82.409 Eliquis as above Venous doppler 07/13/2020 : Negative bilateral venous studyVenou s reflux 12/03/2020 : No significan t disease noted. Consider IVUS but patient declines at this time as she is asymptomat ic Essential hypertension 24002229 I10 Controlled on current regimen Chronic ob structive pulmonary disease 94379969 J44.9 Follows with pulmonary (Dr. Santos) Dyspnea on exertion 6084 5006 R06.09 Stable, unchanged. 2/2 severe emphysema. Follows with pulmonary (Dr. Santos) Lexiscan 08/13/2020 : Adequate Stress with Lexiscan. Negative Lexiscan stress test. Decrease sensitivit y to assess inferior wall due to significan t extracardi ac uptake. Normal LV systolic function. LVEF 58%. Edema of l ower extremity 932783122 R60.0 Resolved [id number] Emiliano Salazar MD [facility] [address] [place] [address] 07/13/2021 16:57:07 07/13/2021 18:05:52 Pulmonary embolism 46395053 I26.99 s/p EKOS ( 0)Okay to stop Eliquis as she has completed 6 months of therapy for first DVT Cardiac CTA 07/23/2020 : 1) Improved but persistent nonocclusi ve emboli in the lower lobes with overall significan t reduction in clot burden since the comparison examinatio n. 2) Severe emphysema. Deep venou s thrombosis 473231588 I82.409 Eliquis as above Venous Doppler 07/13/2020 : Negative bilateral venous studyVenou s reflux 12/03/2020 : No significan t disease noted. Consider IVUS but patient declines at this time as she is asymptomat ic Essential hypertension 34390986 I10 Controlled on current regimen Chronic ob structive pulmonary disease 90085114 J44.9 Follows with pulmonary (Dr. Santos)may have post op pulmonary complicati ons, please consider pulmonary follow up Dyspnea on exertion 6084 5006 R06.09 Stable, unchanged. 2/2 severe emphysema. Follows with pulmonary (Dr. Santos) Lexiscan 08/13/2020 : Adequate Stress with Lexiscan. Negative Lexiscan stress test. Decrease sensitivit y to assess inferior wall due to significan t extracardi ac uptake. Normal LV systolic function. LVEF 58%. Edema of l ower extremity 113273822 R60.0 Resolved Pre-surger y evaluation 950177263 Z01.818 There is no cardiac contraindi cation for the procedure. The planned procedure would be within acceptable risk. [id number] Emiliano Salazar MD [facility] [address] [place] [address] 01/11/2022 11:02:08 01/11/2022 12:18:24 Pulmonary embolism 31063591 I26.99 s/p EKOS ( 0) and again nowOn Eliquis Deep venou s thrombosis 389696572 I82.409 Eliquis as above Consider IVUS but patient declines at this time as she is asymptomat ic Essential hypertension 57961869 I10 Controlled on current regimen Chronic ob structive pulmonary disease 17617883 J44.9 Follows with pulmonary (Dr. Santos)may have post op pulmonary complicati ons, please consider pulmonary follow up Dyspnea on exertion 6084 5006 R06.09 Stable, unchanged. 2/2 severe emphysema. Follows with pulmonary (Dr. Santos) Lexiscan 08/13/2020 : Adequate Stress with Lexiscan. Negative Lexiscan stress test. Decrease sensitivit y to assess inferior wall due to significan t extracardi ac uptake. Normal LV systolic function. LVEF 58%. Edema of l ower extremity 671533806 R60.0 Resolved [id number] Emiliano Salazar MD [facility] [place] [place] [address] 02/08/2022 10:31:01 02/08/2022 10:59:28 Pulmonary embolism 48939969 I26.99 s/p EKOS ( 0) and again nowOn Eliquis Deep venou s thrombosis 163421311 I82.409 Eliquis as above Consider IVUS but patient declines at this time as she is asymptomat ic Essential hypertension 18181253 I10 Controlled on current regimen Chronic ob structive pulmonary disease 38406416 J44.9 Follows with pulmonary (Dr. Santos)may have post op pulmonary complicati ons, please consider pulmonary follow up Dyspnea on exertion 6084 5006 R06.09 Stable, unchanged. 2/2 severe emphysema. Follows with pulmonary (Dr. Santos) Lexiscan 08/13/2020 : Adequate Stress with Lexiscan. Negative Lexiscan stress test. Decrease sensitivit y to assess inferior wall due to significan t extracardi ac uptake. Normal LV systolic function. LVEF 58%. Edema of l ower extremity 216614571 R60.0 Resolved [id number] Emiliano Salazar MD [facility] [place] [address] 05/10/2022 10:02:52 05/10/2022 10:34:34 Pulmonary embolism 13567317 I26.99 s/p EKOS ( 0) and again nowOn Eliquis Deep venou s thrombosis 698806521 I82.409 Eliquis as above Consider IVUS but patient declines at this time as she is asymptomat ic Essential hypertension 20797798 I10 Controlled on current regimen Chronic ob structive pulmonary disease 81014734 J44.9 Follows with pulmonary (Dr. Santos)may have post op pulmonary complicati ons, please consider pulmonary follow up Dyspnea on exertion 6084 5006 R06.09 Stable, unchanged. 2/2 severe emphysema. Follows with pulmonary (Dr. Santos) Lexiscan 08/13/2020 : Adequate Stress with Lexiscan. Negative Lexiscan stress test. Decrease sensitivit y to assess inferior wall due to significan t extracardi ac uptake. Normal LV systolic function. LVEF 58%. Edema of l ower extremity 879195289 R60.0 Resolved [id number] Emiliano Salazar MD [facility] [address] [place] [address] 11/01/2022 14:35:30 11/01/2022 15:27:53 Pulmonary embolism 18351747 I26.99 s/p EKOS ( 0) and again nowOn Eliquis Deep venou s thrombosis 236115256 I82.409 Eliquis as above ( 2)-Venous DuplexStud y consistent with acute venous thrombosis with acute DVT in the left side but improved from last study. Consider IVUS but patient declines at this time as she is asymptomat ic Essential hypertension 23824118 I10 Controlled on current regimen Chronic ob structive pulmonary disease 09892134 J44.9 Follows with pulmonary (Dr. Santos)may have post op pulmonary complicati ons, please consider pulmonary follow up Dyspnea on exertion 6084 5006 R06.09 Stable, unchanged. 2/2 severe emphysema. Follows with pulmonary (Dr. Santos) Lexiscan 08/13/2020 : Adequate Stress with Lexiscan. Negative Lexiscan stress test. Decrease sensitivit y to assess inferior wall due to significan t extracardi ac uptake. Normal LV systolic function. LVEF 58%. Edema of l ower extremity 877488001 R60.0 Resolved [id number] Emiliano Salazar MD [facility] [address] [place] [address] 05/17/2023 10:51:21 05/17/2023 11:43:03 Pulmonary embolism 57812352 I26.99 s/p EKOS ( 0) and again nowOn Eliquis Deep venou s thrombosis 832732082 I82.409 Eliquis as above ( 2)-Venous Duplex Study consistent with acute venous thrombosis with acute DVT in the left side but improved from last study. Consider IVUS but patient declines at this time as she is asymptomat ic Essential hypertension 00316957 I10 Controlled on current regimen Chronic ob structive pulmonary disease 66419673 J44.9 Follows with pulmonary (Dr. Santos)may have post op pulmonary complicati ons, please consider pulmonary follow up Dyspnea on exertion 6084 5006 R06.09 Stable, unchanged. 2/2 severe emphysema. Follows with pulmonary (Dr. Santos) Lexiscan 08/13/2020 : Adequate Stress with Lexiscan. Negative Lexiscan stress test. Decrease sensitivit y to assess inferior wall due to significan t extracardi ac uptake. Normal LV systolic function. LVEF 58%. Edema of l ower extremity 772788240 R60.0 Resolved Carotid bruit [id number] R09.89 will do ultrasound [id number] Emiliano Salazar MD [facility] [address] [place] [address] 11/15/2023 10:43:24 11/15/2023 11:54:33 Pulmonary embolism [id number] I26.99 s/p EKOS ( 0) and again nowOn Eliquis Deep venou s thrombosis [id number] I82.409 Eliquis as above ( 2)-Venous Duplex Study consistent with acute venous thrombosis with acute DVT in the left side but improved from last study. Consider IVUS but patient declines at this time as she is asymptomat ic Essential hypertension [id number] I10 Controlled on current regimen Chronic ob structive pulmonary disease [id number] J44.9 Follows with pulmonary (Dr. Santos)may have post op pulmonary complicati ons, please consider pulmonary follow up Dyspnea on exertion 6084 5006 R06.09 Stable, unchanged. 2/2 severe emphysema. Follows with pulmonary (Dr. Santos) Lexiscan 08/13/2020 : Adequate Stress with Lexiscan. Negative Lexiscan stress test. Decrease sensitivit y to assess inferior wall due to significan t extracardi ac uptake. Normal LV systolic function. LVEF 58%. Edema of l ower extremity [id number] R60.0 Resolved Carotid bruit [id number] R09.89 will do ultrasound [id number] Emiliano Salazar MD [facility] [address] [place] [address] 05/14/2024 10:16:55 05/14/2024 11:34:49 Pulmonary embolism [id number] I26.99 s/p EKOS ( 0) and again nowOn Eliquis Deep venou s thrombosis [id number] I82.409 Eliquis as above ( 2)-Venous Duplex Study consistent with acute venous thrombosis with acute DVT in the left side but improved from last study. Consider IVUS but patient declines at this time as she is asymptomat icObtain echo to evaluate for structural /functiona l disease. Essential hypertension [id number] I10 Controlled on current regimen Chronic ob structive pulmonary disease [id number] J44.9 Follows with pulmonary (Dr. Santos)may have post op pulmonary complicati ons, please consider pulmonary follow upObtain echo to evaluate for structural /functiona l disease. Dyspnea on exertion 6084 5006 R06.09 Stable, unchanged. 2/2 severe emphysema. Follows with pulmonary (Dr. Santos)Obt ain echo to evaluate for structural /functiona l disease. Edema of l ower extremity [id number] R60.0 Resolved Health Concerns Section Related Observation LastModified by Organization Detai ls LastModified Time None Recorded Concern Status LastModified by Organization Details LastModified Time None Recorded Advance Directives Directive None Recorded Payers Insurance Date Sequence Insurance Name Policy Number Policy [place] Covered Member ID [place] Member ID Guarantor Name 11/02/2024 1 [place] Dominga Reynaga [id number] Dominga Reynaga 11/02/2024 2 [employer] (MEDICARE SUPPLEMENT) Dominga Reynaga [id number] Dominga Reynaga 05/16/2024 1 [id number] ([id number]) [id number] Dominga Reynaga [id number] Dominga Reynaga 05/16/2024 2 MISHA Reynaga [id number] Dominga Reynaga Notes Date Note Type Note Provider Name and Address Organization Details Recorded Time 05/10/2022 text/html Hospitalization Contact RecordReported by Patient Sleep ProblemsReported by Patient 05/10/22CC : Cardiac follow up, dyspnea on [id number] woman with history of Hypertension, PE, DVT, obesity, Hypothyroidism presents for 3 month follow-up. She was last seen in the clinic on 02/08/22, since then she is doing better now, she lost few more poundsShe denies ER visits and hospitalizations since she was last seen. Denies chest pain.Denies shortness of breath at rest. Has mild dyspnea on exertion.No orthopnea. No PNDs.Denies heart palpitations.Denies dizziness. Denies syncope or near syncope.No ankle or leg edema.No major bleeding events.No reported side effects from medications. Taking medications as prescribed with no missed doses.Denies snoring, daytime somnolence and AM headache.*Pt dose not have any lipid labs previously. Pt dose not takes any statins. Previously: She had venous Duplex with improved DVT She was in the hospital with DVT and PE, now on Eliquis She has improved dyspnea on exertion. She is now on 2 L NC at night for her COPD. She had a venous reflux since last visit which revealed: *Venous reflux 12/03/2020 No significant disease noted. She has no new complaints. She denies pain and swelling in her legs, and declines pursuing IVUS at this time. She would like to stop her Eliquis in order to more regularly receive injections for her back pain. She has stable, unchanged dyspnea on exertion. She underwent chest CTA which revealed Improved but persistent non occlusive emboli in the lower lobes with overall significant reduction in clot burden since the comparison examination. Severe emphysema. She was seen at [facility] for saddle embolism of pulmonary artery s/p EKOS catheter placement to right and left pulmonary arteries 07/02/20. Discharged from [facility] on 07/05/2020. She reports when she was discontinued from the hospital she did not meet requirements for home oxygen. She quit smoking about 5 years ago. *Had Venous Dop 07/03/2020: Bilateral lower extremity acute deep vein thrombosis involving the femoral and calf veins in the left leg. Results from this visit, or from the past: 07/05/2020 : Na 138,K 3.9,Cl 103,Co2 28,Glucose 88,BUN 14,Creati 0.9,Ca 8.9109/05/2019: WBC 4.8,RBC 3.61,HGB 8.7,HCT 28.5,PLT 158 07/04/20 :PT 19.4,INR 1.58,PTT 36. 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 Negative Lexiscan stress test. Decrease sensitivity to assess inferior wall due to significant extracardiac uptake. Normal LV systolic function. LVEF 58%. CTA 07/23/20: 1) Improved but persistent nonocclusive emboli in the lower lobes with overall significant reduction in clot burden since the comparison examination. 2) Severe emphysema. Echo 07/02/2020 There is mildly increased LV wall thickness. LVSF is normal, estimated at 55-60%. LV septal wall motion is abnormal with septal motion related to bundle branch block. Right ventricular chamber dimension is moderately enlarged. Right ventricular systolic function is reduced. There is no mitral valve regurgitation. There is mild to moderate tricuspid valve regurgitation. Moderate pulmonary HTN, estimated pulmonary arterial systolic pressure is 54 mmHg 07/03/2020 : Venous Dop/Duplex Both Legs : Bilateral lower extremity acute deep vein thrombosis involving the femoral and calf veins in the left leg C 07/02/2020 Successful EKOS application to the right and left pulmonary arteries with bilateral PE Emiliano Salazar MD [address] [place], [address], [place] [facility] 05/10/2022 10:31:33 11/01/2022 text/html Hospitalization Contact RecordReported by Patient Sleep ProblemsReported by Patient 11/01/22CC : Cardiac follow up dyspnea on [id number] woman with history of Hypertension, PE, DVT, obesity, Hypothyroidism presents for 6 month follow-up. She was last seen in the clinic on 05/10/22, since then she doing well. She denied chest pain or dyspnea on exertion. She is still have eliquis on board. *Pt last lipid labs was LDL 91 and TG 99 done 08/2022 . Pt dose not takes any statins. She denies ER visits and hospitalizations since she was last seen. Today reports:Denies chest pain.Denies shortness of breath at rest. Has mild dyspnea on exertion.No orthopnea. No PNDs.Denies heart palpitations.Denies dizziness. Denies syncope or near syncope.No ankle or leg edema.No major bleeding events.No reported side effects from medications. Taking medications as prescribed with no missed doses.Denies snoring, daytime somnolence and AM headache.*Pt dose not have any lipid labs previously. Pt dose not takes any statins. Previously: She had venous Duplex with improved DVT She was in the hospital with DVT and PE, now on Eliquis She has improved dyspnea on exertion. She is now on 2 L NC at night for her COPD. She had a venous reflux since last visit which revealed: *Venous reflux 12/03/2020 No significant disease noted. She has no new complaints. She denies pain and swelling in her legs, and declines pursuing IVUS at this time. She would like to stop her Eliquis in order to more regularly receive injections for her back pain. She has stable, unchanged dyspnea on exertion. She underwent chest CTA which revealed Improved but persistent non occlusive emboli in the lower lobes with overall significant reduction in clot burden since the comparison examination. Severe emphysema. She was seen at [facility] for saddle embolism of pulmonary artery s/p EKOS catheter placement to right and left pulmonary arteries 07/02/20. Discharged from [facility] on 07/05/2020. She reports when she was discontinued from the hospital she did not meet requirements for home oxygen. She quit smoking about 5 years ago. *Had Venous Dop 07/03/2020: Bilateral lower extremity acute deep vein thrombosis involving the femoral and calf veins in the left leg. Results from this visit, or from the past: 07/05/2020 : Na 138,K 3.9,Cl 103,Co2 28,Glucose 88,BUN 14,Creati 0.9,Ca 8.9109/05/2019: WBC 4.8,RBC 3.61,HGB 8.7,HCT 28.5,PLT 158 07/04/20 :PT 19.4,INR 1.58,PTT 36. 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 Negative Lexiscan stress test. Decrease sensitivity to assess inferior wall due to significant extracardiac uptake. Normal LV systolic function. LVEF 58%. CTA 07/23/20: 1) Improved but persistent nonocclusive emboli in the lower lobes with overall significant reduction in clot burden since the comparison examination. 2) Severe emphysema. Echo 07/02/2020 There is mildly increased LV wall thickness. LVSF is normal, estimated at 55-60%. LV septal wall motion is abnormal with septal motion related to bundle branch block. Right ventricular chamber dimension is moderately enlarged. Right ventricular systolic function is reduced. There is no mitral valve regurgitation. There is mild to moderate tricuspid valve regurgitation. Moderate pulmonary HTN, estimated pulmonary arterial systolic pressure is 54 mmHg 07/03/2020 : Venous Dop/Duplex Both Legs : Bilateral lower extremity acute deep vein thrombosis involving the femoral and calf veins in the left leg C 07/02/2020 Successful EKOS application to the right and left pulmonary arteries with bilateral PE ENAS YASSIN null, [place] - [facility] 11/01/2022 15:25:19 05/17/2023 text/html Hospitalization Contact RecordReported by Patient Sleep ProblemsReported by Patient 05/17/23CC : Cardiac follow up dyspnea on [id number] woman with history of Hypertension, PE, DVT, obesity, Hypothyroidism presents for 6 month follow-up. She was last seen in the clinic on 11/01/22, since then she is doing well. She denied chest pain or dyspnea on exertion. Her last LDL was 71 and TG was 99 done 08/2022 and she is not taking any medication.She denies ER visits and hospitalizations since she was last seen. Today reports:Denies chest pain.Denies shortness of breath at rest. Has mild dyspnea on exertion.No orthopnea. No PNDs.Denies heart palpitations.Denies dizziness. Denies syncope or near syncope.No ankle or leg edema.No major bleeding events.No reported side effects from medications. Taking medications as prescribed with no missed doses.Denies snoring, daytime somnolence and AM headache.*Last LDL was done on .Pt dose not takes any statins. Previously:She was last seen in the clinic on 05/10/22, since then she doing well. She denied chest pain or dyspnea on exertion. She is still have eliquis on board. *Pt last lipid labs was LDL 91 and TG 99 done 08/2022 . Pt dose not takes any statins. She had venous Duplex with improved DVT She was in the hospital with DVT and PE, now on Eliquis She has improved dyspnea on exertion. She is now on 2 L NC at night for her COPD. She had a venous reflux since last visit which revealed: *Venous reflux 12/03/2020 No significant disease noted. She has no new complaints. She denies pain and swelling in her legs, and declines pursuing IVUS at this time. She would like to stop her Eliquis in order to more regularly receive injections for her back pain. She has stable, unchanged dyspnea on exertion. She underwent chest CTA which revealed Improved but persistent non occlusive emboli in the lower lobes with overall significant reduction in clot burden since the comparison examination. Severe emphysema. She was seen at [facility] for saddle embolism of pulmonary artery s/p EKOS catheter placement to right and left pulmonary arteries 07/02/20. Discharged from [facility] on 07/05/2020. She reports when she was discontinued from the hospital she did not meet requirements for home oxygen. She quit smoking about 5 years ago. *Had Venous Dop 07/03/2020: Bilateral lower extremity acute deep vein thrombosis involving the femoral and calf veins in the left leg. Results from this visit, or from the past: 07/05/2020 : Na 138,K 3.9,Cl 103,Co2 28,Glucose 88,BUN 14,Creati 0.9,Ca 8.91/: WBC 4.8,RBC 3.61,HGB 8.7,HCT 28.5,PLT 158 07/04/20 :PT 19.4,INR 1.58,PTT 36. 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 Negative Lexiscan stress test. Decrease sensitivity to assess inferior wall due to significant extracardiac uptake. Normal LV systolic function. LVEF 58%. CTA 07/23/20: 1) Improved but persistent nonocclusive emboli in the lower lobes with overall significant reduction in clot burden since the comparison examination. 2) Severe emphysema. Echo 07/02/2020 There is mildly increased LV wall thickness. LVSF is normal, estimated at 55-60%. LV septal wall motion is abnormal with septal motion related to bundle branch block. Right ventricular chamber dimension is moderately enlarged. Right ventricular systolic function is reduced. There is no mitral valve regurgitation. There is mild to moderate tricuspid valve regurgitation. Moderate pulmonary HTN, estimated pulmonary arterial systolic pressure is 54 mmHg 07/03/2020 : Venous Dop/Duplex Both Legs : Bilateral lower extremity acute deep vein thrombosis involving the femoral and calf veins in the left leg [facility] 07/02/2020 Successful EKOS application to the right and left pulmonary arteries with bilateral PE SURENDRA [facility] - [facility] 05/17/2023 11:39:59 11/15/2023 text/html Hospitalization Contact RecordReported by Patient Sleep ProblemsReported by Patient 11/15/23CC : Cardiac follow up dyspnea on -[id number] woman with history of Hypertension, PE, DVT, obesity, Hypothyroidism presents for 6 month follow-up. She was last seen in the clinic on 05/17/23, since then she is doing well. She denied chest pain or dyspnea on exertion. Her LDL 71 done in 08/2022. and she dose not take any statin.She denies ER visits and hospitalizations since she was last seen. Today reports:Denies chest pain.Denies shortness of breath at rest. Has mild dyspnea on exertion.No orthopnea. No PNDs.Denies heart palpitations.Denies dizziness. Denies syncope or near syncope.No ankle or leg edema.No major bleeding events.No reported side effects from medications. Taking medications as prescribed with no missed doses.Denies snoring, daytime somnolence and AM headache.*Pt last lipid labs was LDL 91 and TG 99 done 08/2022 . Pt dose not takes any statins. Previously:She is still have eliquis on board. She had venous Duplex with improved DVT She was in the hospital with DVT and PE, now on Eliquis She has improved dyspnea on exertion. She is now on 2 L NC at night for her COPD. She had a venous reflux since last visit which revealed: *Venous reflux 12/03/2020 No significant disease noted. She has no new complaints. She denies pain and swelling in her legs, and declines pursuing IVUS at this time. She would like to stop her Eliquis in order to more regularly receive injections for her back pain. She has stable, unchanged dyspnea on exertion. She underwent chest CTA which revealed Improved but persistent non occlusive emboli in the lower lobes with overall significant reduction in clot burden since the comparison examination. Severe emphysema. She was seen at [facility] for saddle embolism of pulmonary artery s/p EKOS catheter placement to right and left pulmonary arteries 07/02/20. Discharged from [facility] on 07/05/2020. She reports when she was discontinued from the hospital she did not meet requirements for home oxygen. She quit smoking about 5 years ago. *Had Venous Dop 07/03/2020: Bilateral lower extremity acute deep vein thrombosis involving the femoral and calf veins in the left leg. Results from this visit, or from the past: 07/05/2020 : Na 138,K 3.9,Cl 103,Co2 28,Glucose 88,BUN 14,Creati 0.9,Ca 8.9109/05/2019: WBC 4.8,RBC 3.61,HGB 8.7,HCT 28.5,PLT 158 07/04/20 :PT 19.4,INR 1.58,PTT 36. 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 Negative Lexiscan stress test. Decrease sensitivity to assess inferior wall due to significant extracardiac uptake. Normal LV systolic function. LVEF 58%. CTA 07/23/20: 1) Improved but persistent nonocclusive emboli in the lower lobes with overall significant reduction in clot burden since the comparison examination. 2) Severe emphysema. Echo 07/02/2020 There is mildly increased LV wall thickness. LVSF is normal, estimated at 55-60%. LV septal wall motion is abnormal with septal motion related to bundle branch block. Right ventricular chamber dimension is moderately enlarged. Right ventricular systolic function is reduced. There is no mitral valve regurgitation. There is mild to moderate tricuspid valve regurgitation. Moderate pulmonary HTN, estimated pulmonary arterial systolic pressure is 54 mmHg 07/03/2020 : Venous Dop/Duplex Both Legs : Bilateral lower extremity acute deep vein thrombosis involving the femoral and calf veins in the left leg C 07/02/2020 Successful EKOS application to the right and left pulmonary arteries with bilateral PE LORENA ESTEVEZMARILEE [facility] [place] - [facility] 11/15/2023 11:50:28 05/14/2024 text/html Hospitalization Contact RecordReported by Patient Sleep ProblemsReported by Patient 05/14/24CC : Cardiac follow [id number] woman with history of Hypertension, PE, DVT, obesity, Hypothyroidism presents for 6 month follow-up. She was last seen in the clinic on 11/15/23, since then Korina denies ER visits and hospitalizations since she was last seen. Today reports:Denies chest pain.Denies shortness of breath at rest. Has mild dyspnea on exertion.No orthopnea. No PNDs.Denies heart palpitations.Denies dizziness. Denies syncope or near syncope.No ankle or leg edema.No major bleeding events.No reported side effects from medications. Taking medications as prescribed with no missed doses.Denies snoring, daytime somnolence and AM headache.*Last LDL was 71 done on 09/08/22.Pt dose not takes any statins. Previously:She is still have eliquis on board. She had venous Duplex with improved DVT She was in the hospital with DVT and PE, now on Eliquis She has improved dyspnea on exertion. She is now on 2 L NC at night for her COPD. She had a venous reflux since last visit which revealed: *Venous reflux 12/03/2020 No significant disease noted. She has no new complaints. She denies pain and swelling in her legs, and declines pursuing IVUS at this time. She would like to stop her Eliquis in order to more regularly receive injections for her back pain. She has stable, unchanged dyspnea on exertion. She underwent chest CTA which revealed Improved but persistent non occlusive emboli in the lower lobes with overall significant reduction in clot burden since the comparison examination. Severe emphysema. She was seen at [facility] for saddle embolism of pulmonary artery s/p EKOS catheter placement to right and left pulmonary arteries 07/02/20. Discharged from [facility] on 07/05/2020. She reports when she was discontinued from the hospital she did not meet requirements for home oxygen. She quit smoking about 5 years ago. *Had Venous Dop 07/03/2020: Bilateral lower extremity acute deep vein thrombosis involving the femoral and calf veins in the left leg. Results from this visit, or from the past: 07/05/2020 : Na 138,K 3.9,Cl 103,Co2 28,Glucose 88,BUN 14,Creati 0.9,Ca 8.9109/05/2019: WBC 4.8,RBC 3.61,HGB 8.7,HCT 28.5,PLT 158 07/04/20 :PT 19.4,INR 1.58,PTT 36. 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 Negative Lexiscan stress test. Decrease sensitivity to assess inferior wall due to significant extracardiac uptake. Normal LV systolic function. LVEF 58%. CTA 07/23/20: 1) Improved but persistent nonocclusive emboli in the lower lobes with overall significant reduction in clot burden since the comparison examination. 2) Severe emphysema. Echo 07/02/2020 There is mildly increased LV wall thickness. LVSF is normal, estimated at 55-60%. LV septal wall motion is abnormal with septal motion related to bundle branch block. Right ventricular chamber dimension is moderately enlarged. Right ventricular systolic function is reduced. There is no mitral valve regurgitation. There is mild to moderate tricuspid valve regurgitation. Moderate pulmonary HTN, estimated pulmonary arterial systolic pressure is 54 mmHg 07/03/2020 : Venous Dop/Duplex Both Legs : Bilateral lower extremity acute deep vein thrombosis involving the femoral and calf veins in the left leg [facility] 07/02/2020 Successful EKOS application to the right and left pulmonary arteries with bilateral PE Emiliano Salazar MD [address] [place], [address], [facility] - [facility] 05/14/2024 11:29:40 OBGyn Episode No OBEpisode recorded.
--- OUTSIDE RECORDS SUMMARY | 2025-05-07 17:07 | XMS_ITS | Encounter Summary ---
Author Organization [facility] Address [address] [place] [address] Care Team Providers Care Infectious Waste Technician Name Role Phone Unavailable Primary Care Provider Unavailabl e Encounter Details Date Type Department Care Team (Late st Contact Info) Description 02/07/2004 Outpatient Historical [facility] Internal Medicine [address] [place] [address] Jh Nieves MD [address] [facility] [address] [place] [address] Social History Tobacco Use Types Packs/Day Years Used Date Smoking Tobacco: Never Assessed Comments Unknown Sex and Gender Information Value Date Recorded Sex Assigned at Not on file 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
--- OUTSIDE RECORDS SUMMARY | 2025-05-07 17:07 | XMS_ITS | Encounter Summary ---
Author Organization [facility] Address [address] [place] [address] Care Team Providers Care Electron Gun Inspector Name Role Phone Unavailable Primary Care Provider Unavailabl e Encounter Details Date Type Department Care Team (Late st Contact Info) Description 02/07/2004 Outpatient [facility] Internal Medicine [address] [place] [address] Jh Nieves MD [address] [facility] [address] [place] [address] Social History Tobacco Use Types Packs/Day Years Used Date Smoking Tobacco: Never Assessed Comments Unknown Sex and Gender Information Value Date Recorded Sex Assigned at Not on file Legal Sex Female 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
--- OUTSIDE RECORDS SUMMARY | 2025-05-07 17:07 | XMS_ITS | Encounter Summary ---
Author Organization [facility] Address [address] [place] [address] Care Team Providers Care Assistant Refinery Operator Name Role Phone Unavailable Primary Care Provider Unavailabl e Encounter Details Date Type Department Care Team (Late st Contact Info) Description 05/24/2003 Outpatient Historical [facility] Internal Medicine [address] [place] [address] Jh Nieves MD [address] [facility] [address] [place] [address] Social History Tobacco Use Types Packs/Day Years Used Date Smoking Tobacco: Never Assessed Comments Unknown Sex and Gender Information Value Date Recorded Sex Assigned at Not on file 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
--- OUTSIDE RECORDS SUMMARY | 2025-05-07 17:07 | XMS_ITS | Encounter Summary ---
Author Organization [facility] Address [address] [place] [address] Care Team Providers Care Unit Assembler Name Role Phone Unavailable Primary Care Provider Unavailabl e Encounter Details Date Type Department Care Team (Late st Contact Info) Description 09/27/2003 Outpatient Historical [facility] Internal Medicine [address] [place] [address] Jh Nieves MD [address] [facility] [address] [place] [address] Social History Tobacco Use Types Packs/Day Years Used Date Smoking Tobacco: Never Assessed Comments Unknown Sex and Gender Information Value Date Recorded Sex Assigned at Not on file 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
--- OUTSIDE RECORDS SUMMARY | 2025-05-07 17:07 | XMS_ITS | Encounter Summary ---
Author Organization [facility] Address [address] [place] [address] Care Team Providers Care Clinical Services Specialist Name Role Phone Unavailable Primary Care Provider Unavailabl e Encounter Details Date Type Department Care Team (Late st Contact Info) Description 08/14/2004 Outpatient Historical [facility] Internal Medicine [address] [place] [address] Jh Nieves MD [address] [facility] [address] [place] [address] Social History Tobacco Use Types Packs/Day Years Used Date Smoking Tobacco: Never Assessed Comments Unknown Sex and Gender Information Value Date Recorded Sex Assigned at Not on file 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
--- OUTSIDE RECORDS SUMMARY | 2025-05-07 17:07 | XMS_ITS | Encounter Summary ---
Author Organization [facility] Address [address] [place] [address] Care Team Providers Care Grounds Restoration Specialist Name Role Phone Unavailable Primary Care Provider Unavailabl e Encounter Details Date Type Department Care Team (Late st Contact Info) Description 02/22/2003 Outpatient Historical [facility] Internal Medicine [address] [place] [address] Jh Nieves MD [address] [facility] [address] [place] [address] Social History Tobacco Use Types Packs/Day Years Used Date Smoking Tobacco: Never Assessed Comments Unknown Sex and Gender Information Value Date Recorded Sex Assigned at Not on file 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
--- OUTSIDE RECORDS SUMMARY | 2025-05-07 17:07 | XMS_ITS | Encounter Summary ---
Author Organization [facility] Address [address] [place] [address] Care Team Providers Care C Python Developer Name Role Phone Unavailable Primary Care Provider Unavailabl e Encounter Details Date Type Department Care Team (Late st Contact Info) Description 02/07/2004 Outpatient Historical [facility] Internal Medicine [address] [place] [address] Jh Nieves MD [address] [facility] [address] [place] [address] Social History Tobacco Use Types Packs/Day Years Used Date Smoking Tobacco: Never Assessed Comments Unknown Sex and Gender Information Value Date Recorded Sex Assigned at Not on file 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
--- OUTSIDE RECORDS SUMMARY | 2025-05-07 17:07 | XMS_ITS | Encounter Summary ---
Author Organization [facility] Address [address] [place] [address] Care Team Providers Care Technical Delivery Manager Name Role Phone Unavailable Primary Care Provider Unavailabl e Encounter Details Date Type Department Care Team (Late st Contact Info) Description 12/31/2004 Outpatient Historical [facility] Internal Medicine [address] [place] [address] Jh Nieves MD [address] [facility] [address] [place] [address] Social History Tobacco Use Types Packs/Day Years Used Date Smoking Tobacco: Never Assessed Comments Unknown Sex and Gender Information Value Date Recorded Sex Assigned at Not on file 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
--- OUTSIDE RECORDS SUMMARY | 2025-05-07 17:07 | XMS_ITS | Encounter Summary ---
Author Organization [facility] Address [address] [place] [address] Care Team Providers Care Picker And Packer Name Role Phone Unavailable Primary Care Provider Unavailabl e Encounter Details Date Type Department Care Team (Late st Contact Info) Description 08/14/2004 Outpatient Historical [facility] Internal Medicine [address] [place] [address] Jh Nieves MD [address] [facility] [address] [place] [address] Social History Tobacco Use Types Packs/Day Years Used Date Smoking Tobacco: Never Assessed Comments Unknown Sex and Gender Information Value Date Recorded Sex Assigned at Not on file 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
--- OUTSIDE RECORDS SUMMARY | 2025-05-07 17:07 | XMS_ITS | Encounter Summary ---
Author Organization [facility] Address [address] [place] [address] Care Team Providers Care Relocation Commissioner Name Role Phone Unavailable Primary Care Provider Unavailabl e Encounter Details Date Type Department Care Team (Late st Contact Info) Description 12/31/2004 Outpatient Historical [facility] Internal Medicine [address] [place] [address] Jh Nieves MD [address] [facility] [address] [place] [address] Social History Tobacco Use Types Packs/Day Years Used Date Smoking Tobacco: Never Assessed Comments Unknown Sex and Gender Information Value Date Recorded Sex Assigned at Not on file 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
--- OUTSIDE RECORDS SUMMARY | 2025-05-07 17:07 | XMS_ITS | Clinical Summary ---
Author Organization [place] [id number] [facility] Address [address] [place] [address] Care Team Providers Care General Administrator Name Role Phone Sonya Cabezas MD Primary Care Provider [phone] Hitesh Perdue MD Unavailable Matthew Palmer NP Unavailable Allergies Active Allergy [...] Pulmonary Disease Inhale 2 puffs as needed 08/11/19 21 Active budesonide-glyc opyr-formoterol (Breztri Aerosphere) 160-9-4.8 mcg/actuation HFA aerosol inhalerIndicati ons:Bronchospas m Prevention with COPD Inhale 2 puffs 2 (two) times a day Active multivitamin tabletIndicatio ns:Vitamin Deficiency Prevention Take 1 tablet by mouth 2 (two) times a day 60 tablet 5 10/23/19 22 Active docusate sodium (COLACE) 100 mg capsuleIndicati ons:constipatio n Take 1 capsule (100 mg total) by mouth 2 (two) times a day 30 capsule 10/23/19 22 Active apixaban (ELIQUIS) 5 mg tablet 01/03/20 22 Active tiZANidine (ZANAFLEX) 4 mg tablet TAKE 1 TO 2 TABLETS BY MOUTH EVERY DAY AT BEDTIME 09/27/19 23 Active potassium chloride ER 10 mEq CR capsule TAKE 1 CAPSULE BY MOUTH EVERY OTHER DAY 09/12/19 23 Active CALCIUM CITRATE-VITAMIN D3 ORAL Calcium Citrate + D Active amoxicillin 500 mg capsule 03/22/20 23 Active denosumab (Prolia) 60 mg/mL syringe Inject 1 mL as needed by subcutaneous route. Active hydroCHLOROthia zide (MICROZIDE) 12.5 mg capsule every other day 10/09/19 24 Active HYDROcodone-ela taminophen (NORCO) 5-325 mg per tabletIndicatio ns:Pain Take 1 tablet by mouth daily as needed for pain 30 tablet 02/20/20 25 Active azelastine 205.5 mcg (0.15 %) spray,non-aeros ol Administer 0.3 mL (2 sprays total) into affected nostril(s) 12/26/19 25 Active omeprazole (PriLOSEC) 20 mg capsule 06/08/20 22 025 Discontin ued(Patie nt Reported) fluticasone propionate (FLONASE) 50 mcg/actuation nasal spray USE 1 SPRAY(S) IN EACH NOSTRIL EVERY 12 HOURS 02/27/20 23 025 Discontin ued(Patie nt Reported) Active Problems Problem Noted Date Diagnosed Date Spondylosis of lumbar region without myelopathy or radiculopathy 04/24/2025 Myalgia 04/09/2025 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 02/19/2025 Chronic thoracic back pain 01/14/2025 Thoracic spondylosis 01/14/2025 Non-traumatic compression fr acture of T11 thoracic vertebra, sequela 01/14/2025 Closed compression fracture of L1 lumbar vertebr a, sequela 01/14/2025 Acquired hypothyroidism 11/29/2023 Acute kidney injury 11/29/2023 Acute respiratory failure with hypoxia Microcytic anemia 11/29/2023 Elevated troponin level not [...] essential HTN 01/01/2022 GERD (gastroesophageal reflux disease) Asthma 01/01/2022 HLD (hyperlipidemia) 01/01/2022 Obesity (BMI 35.0-39.9 without comorbidity) 12/22 Saddle embolus of pulmonary artery 10/22/2021 Type 2 diabetes mellitus with diabetic nephropat hy 10/22/2021 No diagnosis on [place] I 07/06/2021 Dyspnea on exertion 08/28/2020 Deep vein thrombosis (DVT) 07/31/2020 Primary osteoarthritis of left knee 07/12/2016 Primary osteoarthritis of both knees 12/28/2015 Knee pain 09/11/2015 Resolved Problems Problem Noted Date Diagnosed Date Resolved Date Morbid obesity 07/06/2021 10/24/2023 BMI 40.0-44.9, adult 06/14/2021 024 Encounters Date Type Department Care Team Description 04/24/2025 10:45 AM CDT - 04/24/2025 11:59 PM CDT Hospital Encounter [facility] [address] [place] [address] Jason Zavaleta, LE[place] Chronic bilateral thoracic back pain (Primary Dx); Thoracic spondylosis; Spondylosis of lumbar region without myelopathy or radiculopathy Discharge Disposition: Discharge to home or self care 04/21/2025 Telephone [facility] [address] [place] [address] [address] [place] [address] Farhana Holder 04/18/2025 11:00 AM CDT Office Visit [address] [phone] Maggy Cortez MD Age-related osteoporosis without current pathological fracture (Primary Dx) 04/18/2025 10:30 AM CDT [facility] [address] [place] [address] Age-related osteoporosis without current pathological fracture 04/18/2025 Telephone [facility] [address] [place] [address] Maggy Cortez MD 04/14/2025 Telephone [facility] [address] [place] [address] Stefanie Wallace RN 04/09/2025 8:49 AM CDT - 04/09/2025 11:59 PM CDT Hospital Encounter [facility] [address] [place] [address] Hitesh Perdue MD Myalgia (Primary Dx); Thoracic spondylosis; 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 Discharge Disposition: Discharge to home or self care 04/08/2025 10:00 AM CDT Infusion [facility] [address] [facility] [address] [place] [address] Age-related osteoporosis without current pathological fracture (Primary Dx) 03/31/2025 Telephone [facility] [address] [facility] [address] [place] [address] Farhana Holder 03/31/2025 Telephone [facility] [address] [facility] [address] [place] [address] Farhana Holder 03/11/2025 9:44 AM CDT - 03/11/2025 11:59 PM CDT Hospital Encounter [facility] [address] [place] [address] Matthew Palmer NP Thoracic spondylosis (Primary Dx); 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 Discharge Disposition: Discharge to home or self care 03/04/2025 9:48 AM CDT - 03/04/2025 11:59 PM CDT Hospital Encounter [facility] [address] [place] [address] Hitesh Perdue MD Thoracic spondylosis [M47.814] (Primary Dx); Chronic thoracic back pain, unspecified back pain laterality; Chronic left-sided thoracic back pain Discharge Disposition: Discharge to home or self care 02/20/2025 Telephone [facility] [address] [place] [address] Jason Zavaleta NP 02/19/2025 9:43 AM CDT - 02/19/2025 11:59 PM CDT Hospital Encounter [facility] [address] [place] [address] Jason Zavaleta NP Thoracic spondylosis (Primary Dx); 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; Chronic bilateral thoracic back pain Discharge Disposition: Discharge to home or self care 02/05/2025 9:52 AM CDT - 02/05/2025 11:59 PM CDT Hospital Encounter [facility] [address] [place] [address] Hitesh Perdue MD Thoracic spondylosis [M47.814] (Primary Dx); Chronic thoracic back pain, unspecified back pain laterality; Chronic left-sided thoracic back pain; Other spondylosis, thoracolumbar region; Thoracic spine pain [M54.6] Discharge Disposition: Discharge to home or self care from Last 3 Months Surgical History Surgery Date Site/Laterality Comments BACK SURGERY Back Surgery - (Added by TW Conv) [place] CHOLECYSTECTOMY Cholecystectomy - (Added by TW Conv) [...] Passive Smoke Exposure: Never Smokeless Tobacco: Never Tobacco Cessation:Counseling Given: Not Answered AUDIT-C Answer Date Recorded Q1: How often [...] on file Legal Sex Female 1:15 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.] 12/22, 01/05/2022, Additional history exists Covid-19 Vaccine (4 - 2024-2 6 season) 2025 05/18/2021, 10/12/2020, 09/09/2020 Influenza Vaccine (#1) 2025 , 04/12/2020, 04/29/2019, Additional history exists Fall Risk Assessment 04/24/2026 04/24/2025 Osteoporosis Screening-Bone Density Scan 04/18/2027 04/18/2025, 04/09/2024, 03/28/2023, Additional history exists Hepatitis B Screening Completed 07/03/2020 Hepatitis C Screening Completed 07/03/2020 Zoster Vaccine Completed 12/13/2020, 04/12/2020 Procedures Procedure Name Priority Date/Time Associated Diagnosis Comments DEXA TBS AXIAL SKELETON BONE DENSITY 1 OR MORE SITES Schedule Routine, Read Routine (OP Routine) 04/18/2025 10:28 AM CDT Age-related osteoporosis without current pathological fracture PAIN MGMT IMAGING PERIPHERAL NERVE STIM PLACEMENT [...] thoracic back pain Other spondylosis, thoracolumbar region EGFR Routine 03/22/2022 11:07 AM CDT Age-related osteoporosis without current pathological fracture HEMOGLOBIN A1C Routine 01/01/2022 11:39 AM CDT LIPID PANEL Routine 01/01/2022 11:39 AM CDT HEPATITIS PANEL, ACUTE Routine 07/03/2020 6:15 AM VENEER 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 from Last 3 Months or Most Recently Relevant to Health Maintenance Results * Dexa TBS Axial Skeleton Bone Density 1 or more sites (04/18/2025 10:28 AM CDT) Anatomical Region Laterality Modality Wrist, Body N/A Radiographic Lynn ging Narrative 04/19/2025 11:37 AM CDT Patient Name: Dominga Reynaga Date of : 1950 Date of scan: 04/18/2025 Bone mineral density was performed on a [employer] Densitometer. Based on machine cross-calibration and precision studies the least significant changes of this densitometer is 0.024 g/cm2 at the spine, 0.020 g/cm2 at the total proximal femur, and 0.014g/cm2 at the forearm. HISTORY: This is a 74 y.o. postmenopausal female with a history of osteoporosis and vitamin D deficiency. She reports that she quit smoking about 9 years ago. Her smoking use included cigarettes. She started smoking about 58 years ago. She has a 49 pack-year smoking history. She has never been exposed to tobacco smoke. She has never used smokeless tobacco. Currently on treatment with calcium, vitamin D, denosumab (Prolia), anticoagulants, and diuretics, previously treated with abaloparatide (Tymlos), and current complaint of back pain. INDICATIONS: Menopause status, treatment monitoring, history of prior vertebral fracture, and history of osteoporosis. FINDINGS: BONE MINERAL DENSITY OF THE PROXIMAL FEMUR Bone Mineral Density (BMD) of the left hip total was found to be 0.662 gm/cm2. This corresponds to a T-score standard deviations from the mean of young adults of -2.3. Femoral neck is 0.508 gm/cm2 with a T-score (standard deviations from the mean of young adults) of -3.1. When compared to the previous study of 04/09/2024 there has been no significant changes in bone density. BONE MINERAL DENSITY OF THE FOREARM Bone Mineral density (BMD) of the right proximal 1/3 of the radius measures 0.590 gm/cm2. This corresponds to a T-score (standard deviations from the mean of young adults) of -1.7. When compared to the previous study of 04/09/2024 there has been no significant changes in bone density. A forearm bone density study was performed instead of a spine study due to presence of surgical hardware. SUMMARY: Bone mineral density shows evidence of osteoporosis and marked increase risk of fracture. There has been no significant changes in bone density since previous measurement. The lumbar spine Trabecular Bone Score TBS was not obtained due to the bone mineral density of the spine not being acquired. ADDITIONAL COMMENTS: Postmenopausal Women and Men Over [...] bone mineral density scan were prepared by Adriana Chavez) BRINA who is accredited by the International Society of Clinical Densitometry. The overall patient assessment and scan interpretation were performed by Maggy Cortez M.D. who is certified by the International Society of Clinical Densitometry. [id number] Maggy Cortez MD IMG DXA PROCEDURES Final Resu lt * Imaging Peripheral Nerve Stim Placement (16020) (03/04/2025 11:02 AM CDT) Narrative RAD_PACS_CH - 03/04/2025 11:02 AM CDT The images from this study are not interpreted by Radiology. Please refer to the physician's procedure / OR operative note. Hitesh Perdue MD [facility] [place] PAIN MGMT PROCEDU RES Final Result Performing Organization Address [facility] de Phone Number RAD_PACS_CH * Imaging Lumbar/Sacral Facet Medial Branch Block Left ([id number]) (02/05/2025 10:37 AM CDT) Narrative [facility]_PACS[facility] - 02/05/2025 10:38 AM CDT The images from this study are not interpreted by Radiology. Please refer to the physician's procedure / OR operative note. Hitesh Perdue MD [facility] [place] [place] PAIN MGMT PROCEDU RES Final Result Performing Organization Address [facility] de Phone Number RAD_PACS_[facility] * (ABNORMAL) eGFR (03/22/2022 11:07 AM CDT) eGFR 73(L) 90 - 130 mL/min/1. 73 m2 [facility] Comment: Interpretive Data Reference Interval Normal >/= [...] of Race in Diagnosing Kidney Disease, JASN 2020). The CKD-EPI equation should not be used for patients with unstable renal function and has not been validated in children and those over 70. Current interpretive data was last reviewed 2021. Blood 03/22/2022 11:0 7 AM CDT 03/22/2022 1:58 PM CDT us Maggy Cortez MD LAB BLOOD ORDERABLES Final Re sult [facility] Department [place] [address] * Hemoglobin A1c (01/01/2022 11:39 AM CDT) Hgb A1C 5.1 4.0 - 5.6 % [facility] Estimated Average Glucose 100 mg/dL [facility] Comment: The ADA recommends reporting an estimated Average Glucose (eAG) with all Hemoglobin A1c results using the equation derived from a study of 507 normal and diabetic adults. Minority populations were underrepresented and children were not included. (Diabetes Care 31:5087-2254, 2008). The eAG is not equivalent to a fasting glucose. Blood 01/01/2022 11:3 9 AM CDT 01/01/2022 11:42 AM CDT us Moris Gordon MD LAB BLOOD ORDERABLES Final Result [facility] [address] [facility] [place] [address] * Lipid panel (01/01/2022 11:39 AM CDT) [...] on 2018. Triglycerides 89 <=149 mg/dL [facility] Comment: Interpretive Data Ages < or = [...] on 2018. HDL 61 >=40 mg/dL [facility] Comment: Interpretive Data Ages < or = [...] 2018. LDL, calculated 51 <=129 mg/dL [facility] Comment: Interpretive Data Ages < or = [...] revised on 2018. Chol/HDL ratio 2 [facility] Blood 01/01/2022 11:3 9 AM CDT 01/01/2022 11:42 AM CDT us Moris Gordon MD LAB BLOOD ORDERABLES Final Result [facility] [address] [facility] [place] [address] * Hepatitis panel, acute (07/03/2020 6:15 AM VENEER 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) HepBsAg NONREACT NONREACTIVE [facility] Comment: Siemens CentaurXP using ANGÉLICA (chemiluminescent immunoassay) technology. NONREACTIVE: IgM antibodies to Hepatitis B Surface antigen not detected. REACTIVE: IgM antibodies to Hepatitis B Surface antigen detected. Reactive results will be confirmed by neutralization testing. HBsAb qn <3.10 mIU/mL [facility] Comment: Siemens CentaurXP using ANGÉLICA (chemiluminescent immunoassay) technology. 9.99 IU/L or less.....NONREACTIVE: IgM antibodies to Hepatitis B Surface antibody are not detected. 10.00 IU/L or greater..REACTIVE: IgM antibodies to Hepatitis B Surface antibody are detected. Hep B core IgM NONREACT NONREACTIVE [facility] Comment: Siemens CentaurXP using ANGÉLICA (chemiluminescent immunoassay) technology. NONREACTIVE: IgM antibodies to Hepatitis B Core antigen not detected. EQUIVOCAL: IgM antibodies to Hepatitis B Core antigen may or may not be present. Obtain a new specimen and retest. REACTIVE: IgM antibodies to Hepatitis B Core antigen detected. Hep A IgM NONREACT NONREACTIVE [facility] Comment: Siemens CentaurXP using ANGÉLICA (chemiluminescent immunoassay) technology. NONREACTIVE: IgM antibodies to Hepatitis A not detected. This does not exclude possibility of exposure to Hepatitis A or early acute infection. EQUIVOCAL:IgM antibodies to Hepatitis A may or may not be present. Suggest recollection and retest. REACTIVE: Antibodies to Hepatitis A detected. Hep C Ab NONREACT NONREACTIVE [facility] Comment: Siemens CentaurXP using ANGÉLICA (chemiluminescent [...] by real-time PCR method. 07/03/2020 6:15 AM VENEER 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 07/03/2020 6:19 AM VENEER 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 Narrative Resulting Agency Comment IN Akanksha Arriaza DO LAB MICROBIOLOGY - GENERAL OR DERABLES Final Result [facility] [address] [place] [address], [facility] [phone] from Last 3 Months or Most Recently Relevant to Health Maintenance [place] [address] [address] [employer] SENIOR SUPPLEMENT [place] [address] [employer] MEDICARE MEDICARE AETNA SENIOR SUPPLE[place] [address] MEDICARE AET[employer] SENIOR SUPPLEMENT Advance Directives For more information, please contact: [phone] * Full Code (Latest Code Status on File) Date Activated Date Inactivated Comments 01/01/2022 11:24 AM 01/06/2022 7:11 PM * Full Code Date Activated Date Inactivated Comments 10/21/2021 3:06 PM 10/23/2021 7:07 PM Care Teams General Administrator Relationship Specialty Start Date End Date Sonya Cabezas MD PCP - General Family Medicine 04/10/24 [place] [address] [address] [facility] [address] [address] Consulting Physician Pain Management 03/11/25 [place] [address] [address] [facility] [facility] [address] [place] [address] Nurse Practitioner Nurse Practitioner 03/11/25
== END 2025-05-07 14:50 | disposition home or self-care (01) ==
LOC: ANHFOHIMG 14:51
PROVIDERS: PCP Family Medicine; Visit Provider Family Medicine
DX: Z12.31 Encounter for screening mammogram for malignant neoplasm of breast (principal)
CPT/HCPCS: 77063; 77067

== ENCOUNTER 2025-05-27 10:21 | Outpatient (CLI) | payer MEDICARE, SELFPAY ==
--- NOTE | ~2025-05-27 | CT_ITS ---
EXAMINATION:CT lung screening DATE: 05/27/2025 10:53 INDICATION: Personal history of nicotine dependence. TECHNIQUE: Computed tomography (CT) of the chest was performed without intravenous contrast. Automated exposure control and iterative reconstruction technique were employed. The dose-length product (DLP) was 68.87 mGy-cm. COMPARISON: Chest CT 07/07/2023 FINDINGS: There is moderate emphysema. There is a 2 mm nodule in left upper lobe. There is a worsened 6 mm nodule in left upper lobe. Calcified left lung nodules are consistent with old granulomatous disease. No pleural effusion. The heart size is normal. There are coronary artery calcifications. No pericardial effusion. There is ectasia of ascending aorta measuring 4.0 cm. There are changes of gastric bypass procedure. There are changes of cholecystectomy. Epidural electrodes are noted. There is a chronic compression fracture of T11. There is a chronic burst fracture of L1 with changes of vertebroplasty. There is moderate thoracic spondylosis. IMPRESSION: 1. Lung-RADS category 3: Probably benign. Further evaluation is recommended with noncontrast low-dose chest CT in 6 months. Reviewed, dictated and finalized at location E. TRUCTION MANAGEMENT ASSISTANT IMPRESSION: 1. Lung-RADS category 3: Probably benign. Further evaluation is recommended wit h noncontrast low-dose chest CT in 6 months.
--- OUTSIDE RECORDS SUMMARY | 2025-05-27 11:53 | XMS_ITS | Encounter Summary ---
Author Organization [facility] Address [address] [place] [address] Care Team Providers Care Etl Analyst Name Role Phone Unavailable Primary Care Provider Unavailabl e Encounter Details Date Type Department Care Team (Late st Contact Info) Description 02/22/2003 Outpatient Historical [facility] [address] [place] [address] Jh Nieves MD [address] [facility] [address] [place] [address] Social History Tobacco Use Types Packs/Day Years Used Date Smoking Tobacco: Never Assessed Comments Unknown Sex and Gender Information Value Date Recorded Sex Assigned at Not on file 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
--- OUTSIDE RECORDS SUMMARY | 2025-05-27 11:53 | XMS_ITS | Encounter Summary ---
Author Organization [facility] Address [address] [place] [address] Care Team Providers Care Investigator Internal Revenue Name Role Phone Unavailable Primary Care Provider Unavailabl e Encounter Details Date Type Department Care Team (Late st Contact Info) Description 02/07/2004 Outpatient Historical [facility] Internal Medicine [address] [place] [address] Jh Nieves MD [address] [facility] [address] [place] [address] Social History Tobacco Use Types Packs/Day Years Used Date Smoking Tobacco: Never Assessed Comments Unknown Sex and Gender Information Value Date Recorded Sex Assigned at Not on file Legal Sex Female 4: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
--- OUTSIDE RECORDS SUMMARY | 2025-05-27 11:53 | XMS_ITS | Encounter Summary ---
Author Organization [facility] Address [address] [place] [address] Care Team Providers Care Virtual Office Assistant Name Role Phone Unavailable Primary Care Provider Unavailabl e Encounter Details Date Type Department Care Team (Late st Contact Info) Description 05/24/2003 Outpatient Historical [facility] [place] [facility] Internal Medicine [address] [place] [address] Jh Nieves MD [address] [facility] [address] [place] [address] Social History Tobacco Use Types Packs/Day Years Used Date Smoking Tobacco: Never Assessed Comments Unknown Sex and Gender Information Value Date Recorded Sex Assigned at Not on file 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
--- OUTSIDE RECORDS SUMMARY | 2025-05-27 11:53 | XMS_ITS | Encounter Summary ---
Author Organization [facility] Address [address] [place] [address] Care Team Providers Care Heel Cementer Name Role Phone Unavailable Primary Care Provider Unavailabl e Encounter Details Date Type Department Care Team (Late st Contact Info) Description 02/07/2004 Outpatient Historical [facility] Internal Medicine [address] [place] [address] Jh Nieves MD [address] [facility] [address] [place] [address] Social History Tobacco Use Types Packs/Day Years Used Date Smoking Tobacco: Never Assessed Comments Unknown Sex and Gender Information Value Date Recorded Sex Assigned at Not on file 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
--- OUTSIDE RECORDS SUMMARY | 2025-05-27 11:53 | XMS_ITS | Encounter Summary ---
Author Organization [facility] Address [address] [place] [address] Care Team Providers Care Horse Racing Analyst Name Role Phone Unavailable Primary Care Provider Unavailabl e Encounter Details Date Type Department Care Team (Late st Contact Info) Description 12/31/2004 Outpatient Historical [facility] Medicine [address] [place] [address] Jh Nieves MD [address] [facility] [address] [place] [address] Social History Tobacco Use Types Packs/Day Years Used Date Smoking Tobacco: Never Assessed Comments Unknown Sex and Gender Information Value Date Recorded Sex Assigned at Not on file Legal Sex Female 4:05 AM RN FIELD Gender Identity Not on file Sexual Orientation Not on file documented as of this encounter Plan of Treatment Not on file documented as of this encounter Visit Diagnoses Not on filedocumented in this encounter
--- OUTSIDE RECORDS SUMMARY | 2025-05-27 11:53 | XMS_ITS | Encounter Summary ---
Author Organization [facility] Address [address] [place] [address] Care Team Providers Care Snow Groomer Name Role Phone Unavailable Primary Care Provider Unavailabl e Encounter Details Date Type Department Care Team (Late st Contact Info) Description 09/27/2003 Outpatient Historical [facility] Internal Medicine [address] [place] [address] Jh Nieves MD [address] [facility] [address] [place] [address] Social History Tobacco Use Types Packs/Day Years Used Date Smoking Tobacco: Never Assessed Comments Unknown Sex and Gender Information Value Date Recorded Sex Assigned at Not on file 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
--- OUTSIDE RECORDS SUMMARY | 2025-05-27 11:53 | XMS_ITS | Encounter Summary ---
Author Organization [facility] Address [address] [place] [address] Care Team Providers Care Outer Diameter Grinder Tool Name Role Phone Unavailable Primary Care Provider Unavailabl e Encounter Details Date Type Department Care Team (Late st Contact Info) Description 12/31/[address] 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
--- OUTSIDE RECORDS SUMMARY | 2025-05-27 11:53 | XMS_ITS | Encounter Summary ---
Author Organization [facility] Address [address] [place] [address] Care Team Providers Care Vegetable Canner Name Role Phone Unavailable Primary Care Provider Unavailabl e Encounter Details Date Type Department Care Team (Late st Contact Info) Description 09/09/2004 Outpatient Historical [facility] Internal Medicine [address] [place] [address] Franny Smith MD [address] [place] [id number] Social History Tobacco Use Types Packs/Day Years Used Date Smoking Tobacco: Never Assessed Comments Unknown Sex and Gender Information Value Date Recorded Sex Assigned at Not on file 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
--- OUTSIDE RECORDS SUMMARY | 2025-05-27 11:53 | XMS_ITS | Encounter Summary ---
Author Organization [facility] Address [address] [place] [address] Care Team Providers Care Newspaper Peddler Name Role Phone Unavailable Primary Care Provider Unavailabl e Encounter Details Date Type Department Care Team (Late st Contact Info) Description 05/24/2003 Outpatient Historical [facility] Internal Medicine [address] [place] [address] Jh Nieves MD [address] [facility] [address] [place] [address] Social History Tobacco Use Types Packs/Day Years Used Date Smoking Tobacco: Never Assessed Comments Unknown Sex and Gender Information Value Date Recorded Sex Assigned at Not on file 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
--- OUTSIDE RECORDS SUMMARY | 2025-05-27 11:53 | XMS_ITS | Encounter Summary ---
Author Organization [facility] Address [address] [place] [address] Care Team Providers Care Endoscope Technician Name Role Phone Unavailable Primary Care Provider Unavailabl e Encounter Details Date Type Department Care Team (Late st Contact Info) Description 05/24/2003 Outpatient Historical [facility] Internal Medicine [address] [place] [address] Jh Nieves MD [address] [facility] [address] [place] [address] Social History Tobacco Use Types Packs/Day Years Used Date Smoking Tobacco: Never Assessed Comments Unknown Sex and Gender Information Value Date Recorded Sex Assigned at Not on file 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
--- OUTSIDE RECORDS SUMMARY | 2025-05-27 11:53 | XMS_ITS | Encounter Summary ---
Author Organization [facility] Address [address] [place] [address] Care Team Providers Care Primary Substance Abuse Counselor Name Role Phone Unavailable Primary Care Provider Unavailabl e Encounter Details Date Type Department Care Team (Late st Contact Info) Description 02/07/2004 Outpatient Historical [facility] Internal Medicine [address] [place] [address] Jh Nieves MD [address] [facility] [address] [place] [address] Social History Tobacco Use Types Packs/Day Years Used Date Smoking Tobacco: Never Assessed Comments Unknown Sex and Gender Information Value Date Recorded Sex Assigned at Not on file 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
--- OUTSIDE RECORDS SUMMARY | 2025-05-27 11:53 | XMS_ITS | Encounter Summary ---
Author Organization [facility] Address [address] [place] [address] Care Team Providers Care Hat And Cap Sewer Name Role Phone Unavailable Primary Care Provider Unavailabl e Encounter Details Date Type Department Care Team (Late st Contact Info) Description 08/14/2004 Outpatient Historical [facility] Internal Medicine [address] [place] [address] Jh Nieves MD [address] [facility] [address] [place] [address] Social History Tobacco Use Types Packs/Day Years Used Date Smoking Tobacco: Never Assessed Comments Unknown Sex and Gender Information Value Date Recorded Sex Assigned at Not on file 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
--- OUTSIDE RECORDS SUMMARY | 2025-05-27 11:53 | XMS_ITS | Encounter Summary ---
Author Organization [facility] Address [address] [place] [address] Care Team Providers Care Plaster Tender Name Role Phone Unavailable Primary Care Provider Unavailabl e Encounter Details Date Type Department Care Team (Late st Contact Info) Description 08/14/2004 [facility] Internal Medicine [address] [place] [address] Jh Nieves MD [address] [facility] [address] [place] [address] Social History Tobacco Use Types Packs/Day Years Used Date Smoking Tobacco: Never Assessed Comments Unknown Sex and Gender Information Value Date Recorded Sex Assigned at Not on file 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
--- OUTSIDE RECORDS SUMMARY | 2025-05-27 11:53 | XMS_ITS | Clinical Summary ---
Author Organization [facility] Address [address] 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
--- OUTSIDE RECORDS SUMMARY | 2025-05-27 11:53 | XMS_ITS | Encounter Summary ---
Author Organization [facility] Address [address] [place] [address] Care Team Providers Care Director Of Preclinical Research Name Role Phone Unavailable Primary Care Provider Unavailabl e Encounter Details Date Type Department Care Team (Late st Contact Info) Description 09/27/2003 Outpatient Historical [facility] Internal Medicine [address] [place] [address] Jh Nieves MD [address] [facility] [address] [place] [address] Social History Tobacco Use Types Packs/Day Years Used Date Smoking Tobacco: Never Assessed Comments Unknown Sex and Gender Information Value Date Recorded Sex Assigned at Not on file 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
--- OUTSIDE RECORDS SUMMARY | 2025-05-27 11:53 | XMS_ITS | Data Portability ---
Author Organization [place] [facility] OFFICE Address [address] [place] [address] Care Team Providers Care Legal Support Specialist Name Role Phone DARRIAN CUNNINGHAM Primary Care Provider [phone] Assessment Encounter Date Assessment Date Assessment LastModified [...] Orders Eliquis 5 mg tablet 023 023 [facility] [address] [facility], [place], [address], 11:40:02 Patient TargetsNo targets recorded. Patient Instructions Encounter Date Encounter Id Patient Instructions Last Modified By Organization Details Last Modified Time 11/01/2022 [id number] Exercise advised Low cholesterol diet advised Low sodium diet advised. eyassin Not available 11/01/2022 15:25:15 05/17/2023 [id number] Low cholesterol diet advised Low sodium diet advised. eyassin Not available 05/17/2023 11:39:53 11/15/2023 [id number] Low cholesterol diet advised Low sodium diet [...] diogr am No observ ation record ed. [email or web address] Not Available 2023 15:08:44 05/14/20 24 05/14/2024 elect rocar diogr am No observ ation record ed. [email or web address] Not Available 2024 09:10:15 05/26/2005/21/2024 , echo ardio gram No observ ation record ed. [email or web address] Not Available 2024 11:44:13 Result Notes None recorded. Problems Name Problem SNOMED Code Status Onset Date Resolution Date Notes Provider Name and Address Organization Details Recorded Time Pulmonary embolism 83028433 Active 2020 Julio Cesar perales [facility] 09:53:02 Deep venous thrombosis 659490139 Active 2020 Julio Cesar perales [facility] 09:53:09 Essential hypertension 64447060 Active 2020 Julio Cesar perales [facility] 09:53:16 Chronic obstructive pulmonary disease 74588643 Active 2020 Julio Cesar perales [facility] 09:53:23 Dyspnea on exertion 61726900 Active 2020 Julio Cesar Solorio null, [facility] 1 12:28:27 Problem Notes None recorded. Medical Equipment None Reported. Allergies Allergen ID Allergen Name Allergen Category Reaction Reaction Severity Criticality Documentation Date Start Date Code Code System Note Provider Name and Address Organization Details Recorded Time 57843 tramadol medicatio n itching mild low 11/01/2022 55764 RxNorm But if pt dcrat ches she gets calix all over. Kalli Cooper null, [place] - [facility] 3 14:52:56 Medications [...] Updated DateTime 3 160.02 cm 30.5 kg/m2 32074.8 9 g 95 % 95 % 63 /min 100/80 mm[Hg] Kalli Cooper [facility] 3 14:59:04 Date Recorded Body height Body mass index (BMI) Body weight Heart rate Oxygen saturation Oxygen saturation in Arterial blood by Pulse oximetry Systolic And Diastolic Provider Name and Address Organization Details Last Updated DateTime 4 160.02 cm 28.2 kg/m2 66470.1 9 g 72 /min 94 % 94 % 96/60 mm[Hg] [facility] 4 11:03:41 Date Recorded Body height Body mass index (BMI) Body weight Heart rate Oxygen saturation Oxygen saturation in Arterial blood by Pulse oximetry Systolic And Diastolic Provider Name and Address Organization Details Last Updated DateTime 2 160.02 cm 32.6 kg/m2 85591 g 63 /min 95 % 95 % 118/68 mm[Hg] [facility] 2 10:17:35 Date Recorded Body height Body mass index (BMI) Body weight Oxygen saturation Oxygen saturation in Arterial blood by Pulse oximetry Heart rate Systolic And Diastolic Provider Name and Address Organization Details Last Updated DateTime 4 160.02 cm 27.3 kg/m2 98115.2 2 g 96 % 96 % 91 /min 92/62 mm[Hg] [facility] 4 11:09:03 Date Recorded Body height Body mass index (BMI) Body weight Heart rate Respiratory rate Oxygen saturation Oxygen saturation in Arterial blood by Pulse oximetry Systolic And Diastolic Provider Name and Address Organization Details Last Updated DateTime 3 160.02 cm 28.9 kg/m2 72801.5 6 g 82 /min 16 /min 90 % 90 % 128/62 mm[Hg] Paul Holder [facility] 3 11:08:18 Social History Question Answer Notes LastModified by Organizat ion Details LastModified Time Tobacco Smoking Status Former Smoker quit 2014 Emiliano Chand diaz [facility] 07/16/2020 10:29:03 Marital Status [email or web address] Information not [...] ICD10 Code Diagnosis IMO Codes Diagnosis Note [id number] Emiliano Salazar MD [facility] Office [address] [place] [address] [place] [address] 07/16/2020 09:55:38 07/16/2020 10:49:01 Follow-up visit 325542083 Z09 Pulmonary embolism 80641 003 I26.99 s/p EKOS ( 0)on Eliquis Essential hypertension 24732826 I10 Restart losartan-H CTZ 50-12.5mg Deep venou s thrombosis 093572556 I82.409 on Eliquis Chronic ob structive pulmonary disease 95261864 J44.9 Instructed to follow-up with pulmonary [id number] Emiliano Salazar MD [place] Office [address] [place] [address] 08/03/2020 15:45:43 08/03/2020 16:35:49 Pulmonary embolism 66103436 I26.99 s/p EKOS ( 0)on Eliquis 5mg BID Cardiac CTA 07/23/2020 : 1) Improved but persistent nonocclusi ve emboli in the lower lobes with overall significan t reduction in clot burden since the comparison examinatio n. 2) Severe emphysema. Deep venou s thrombosis 071101135 I82.409 on Eliquis 5mg BIDVenous doppler 07/13/2020 : Negative bilateral venous study Essential hypertension 96785347 I10 Well controlled on current regimen Chronic ob structive pulmonary disease 90562642 J44.9 Instructed to follow-up with pulmonary Dyspnea on exertion 6084 5006 R06.09 Lexiscan Myoview stress test, pt can not walk. Has known coronary artery disease, with atypical symptoms now [id number] MD Yordan Paz Office [address] [place] [address] 08/31/2020 15:43:10 08/31/2020 16:25:19 Pulmonary embolism 94094705 I26.99 s/p EKOS ( 0)on Eliquis 5mg BID Cardiac CTA 07/23/2020 : 1) Improved but persistent nonocclusi ve emboli in the lower lobes with overall significan t reduction in clot burden since the comparison examinatio n. 2) Severe emphysema. Deep venou s thrombosis 000824172 I82.409 on Eliquis 5mg BIDVenous doppler 07/13/2020 : Negative bilateral venous studyConsi sammy IVUS Essential hypertension 02673766 I10 Well controlled on current regimen Chronic ob structive pulmonary disease 82410529 J44.9 Follows with pulmonary (Dr. Roblero) Dyspnea on exertion 6084 5006 R06.09 Likely 2/2 severe emphysema Lexiscan 08/13/2020 : Adequate Stress with Lexiscan. Negative Lexiscan stress test. Decrease sensitivit y to assess inferior wall due to significan t extracardi ac uptake. Normal LV systolic function. LVEF 58%. [id number] MD Yordan Paz Office [address] [place] [address] 11/23/2020 14:54:24 11/23/2020 15:28:17 Pulmonary embolism 05190569 I26.99 s/p EKOS ( 0) on Eliquis 5 mg BID Cardiac CTA 07/23/2020 : 1) Improved but persistent nonocclusi ve emboli in the lower lobes with overall significan t reduction in clot burden since the comparison examinatio n. 2) Severe emphysema. Deep venou s thrombosis 714723528 I82.409 on Eliquis 5mg BID Venous doppler 07/13/2020 : Negative bilateral venous study Consider IVUS following completing 6 months of Eliquis Obtain venous reflux study Essential hypertension 63295245 I10 Well controlled on current regimen Chronic ob structive pulmonary disease 06603027 J44.9 Follows with pulmonary (Dr. Santos) Dyspnea on exertion 6084 5006 R06.09 Improved, 2/2 severe emphysema. Follows with pulmonary (Dr. Santos) Lexiscan 08/13/2020 : Adequate Stress with Lexiscan. Negative Lexiscan stress test. Decrease sensitivit y to assess inferior wall due to significan t extracardi ac uptake. Normal LV systolic function. LVEF 58%. Edema of l ower extremity 201567970 R60.0 Obtain echo to evaluate for structural /functiona l disease 88228 Elijah Huston MD [place] OFFICE [address] [place] [address] 01/08/2021 11:45:24 01/08/2021 22:31:44 Pulmonary embolism 49971720 I26.99 s/p EKOS ( 0)Okay to stop Eliquis as she has completed 6 months of therapy for first DVT Cardiac CTA 07/23/2020 : 1) Improved but persistent nonocclusi ve emboli in the lower lobes with overall significan t reduction in clot burden since the comparison examinatio n. 2) Severe emphysema. Deep venou s thrombosis 244247284 I82.409 Eliquis as above Venous doppler 07/13/2020 : Negative bilateral venous studyVenou s reflux 12/03/2020 : No significan t disease noted. Consider IVUS but patient declines at this time as she is asymptomat ic Essential hypertension 66813460 I10 Controlled on current regimen Chronic ob structive pulmonary disease 49656984 J44.9 Follows with pulmonary (Dr. Santos) Dyspnea on exertion 6084 5006 R06.09 Stable, unchanged. 2/2 severe emphysema. Follows with pulmonary (Dr. Santos) Lexiscan 08/13/2020 : Adequate Stress with Lexiscan. Negative Lexiscan stress test. Decrease sensitivit y to assess inferior wall due to significan t extracardi ac uptake. Normal LV systolic function. LVEF 58%. Edema of l ower extremity 790560312 R60.0 Resolved 78693 Emiliano Salazar MD [place] OFFICE [address] [place] [address] 07/13/2021 16:57:07 07/13/2021 18:05:52 Pulmonary embolism 18253185 I26.99 s/p EKOS ( 0)Okay to stop Eliquis as she has completed 6 months of therapy for first DVT Cardiac CTA 07/23/2020 : 1) Improved but persistent nonocclusi ve emboli in the lower lobes with overall significan t reduction in clot burden since the comparison examinatio n. 2) Severe emphysema. Deep venou s thrombosis 232102213 I82.409 Eliquis as above Venous Doppler 07/13/2020 : Negative bilateral venous studyVenou s reflux 12/03/2020 : No significan t disease noted. Consider IVUS but patient declines at this time as she is asymptomat ic Essential hypertension 15606682 I10 Controlled on current regimen Chronic ob structive pulmonary disease 50154361 J44.9 Follows with pulmonary (Dr. Santos)may have [...] LVEF 58%. Edema of l ower extremity 561564269 R60.0 Resolved Pre-surger y evaluation 452377784 Z01.818 There is no cardiac contraindi cation for the procedure. The planned procedure would be within acceptable risk. [id number] Emiliano Salazar MD [place] OFFICE [address] [place] [address] 01/11/2022 11:02:08 01/11/2022 12:18:24 Pulmonary embolism 43497307 I26.99 s/p EKOS ( 0) and again nowOn Eliquis Deep venou s thrombosis 949859220 I82.409 Eliquis as above Consider IVUS but patient declines at this time as she is asymptomat ic Essential hypertension 98007865 I10 Controlled on current regimen Chronic ob structive pulmonary disease 99443078 J44.9 Follows with pulmonary (Dr. Santos)may have [...] LVEF 58%. Edema of l ower extremity 500319530 R60.0 Resolved 08560 Emiliano Salazar MD [place] OFFICE [facility] [place] [address] 02/08/2022 10:31:01 02/08/2022 10:59:28 Pulmonary embolism 13190396 I26.99 s/p EKOS ( 0) and again nowOn Eliquis Deep venou s thrombosis 022092168 I82.409 Eliquis as above Consider IVUS but patient declines at this time as she is asymptomat ic Essential hypertension 44409014 I10 Controlled on current regimen Chronic ob structive pulmonary disease 99755360 J44.9 Follows with pulmonary (Dr. Santos)may have [...] LVEF 58%. Edema of l ower extremity 187210575 R60.0 Resolved 55430 Emiliano Salazar MD [place] OFFICE [facility] [place] [address] 05/10/2022 10:02:52 05/10/2022 10:34:34 Pulmonary embolism 62391649 I26.99 s/p EKOS ( 0) and again nowOn Eliquis Deep venou s thrombosis 428423775 I82.409 Eliquis as above Consider IVUS but patient declines at this time as she is asymptomat ic Essential hypertension 23462895 I10 Controlled on current regimen Chronic ob structive pulmonary disease 59068184 J44.9 Follows with pulmonary (Dr. Santos)may have [...] LVEF 58%. Edema of l ower extremity 619495044 R60.0 Resolved 32774 Emiliano Salazar MD [place] OFFICE [address] [place] [address] 11/01/2022 14:35:30 11/01/2022 15:27:53 Pulmonary embolism 84880175 I26.99 s/p EKOS ( 0) and again nowOn Eliquis Deep venou s thrombosis 782557767 I82.409 Eliquis as above ( 2)-Venous DuplexStud y consistent with acute venous thrombosis with acute DVT in the left side but improved from last study. Consider IVUS but patient declines at this time as she is asymptomat ic Essential hypertension 74895206 I10 Controlled on current regimen Chronic ob structive pulmonary disease 39371411 J44.9 Follows with pulmonary (Dr. Santos)may have [...] LVEF 58%. Edema of l ower extremity 651496938 R60.0 Resolved 04066 Emiliano Salazar MD [place] OFFICE [address] [place] [address] 05/17/2023 10:51:21 05/17/2023 11:43:03 Pulmonary embolism 91573374 I26.99 s/p EKOS ( 0) and again nowOn Eliquis Deep venou s thrombosis 099230882 I82.409 Eliquis as above ( 2)-Venous Duplex Study consistent with acute venous thrombosis with acute DVT in the left side but improved from last study. Consider IVUS but patient declines at this time as she is asymptomat ic Essential hypertension 29811926 I10 Controlled on current regimen Chronic ob structive pulmonary disease 47310802 J44.9 Follows with pulmonary (Dr. Santos)may have [...] LVEF 58%. Edema of l ower extremity 788822489 R60.0 Resolved Carotid bruit 224034252 R09.89 will do ultrasound 289417 Emiliano Salazar MD [place] OFFICE [address] [place] [address] 11/15/2023 10:43:24 11/15/2023 11:54:33 Pulmonary embolism 43584637 I26.99 s/p EKOS ( 0) and again nowOn Eliquis Deep venou s thrombosis 908697179 I82.409 Eliquis as above ( 2)-Venous Duplex Study consistent with acute venous thrombosis with acute DVT in the left side but improved from last study. Consider IVUS but patient declines at this time as she is asymptomat ic Essential hypertension 44889918 I10 Controlled on current regimen Chronic ob structive pulmonary disease 09354722 J44.9 Follows with pulmonary (Dr. Santos)may have [...] LVEF 58%. Edema of l ower extremity 654413692 R60.0 Resolved Carotid bruit 208822500 R09.89 will do ultrasound [id number] Emiliano Salazar MD [place] OFFICE [address] [place] [address] 05/14/2024 10:16:55 05/14/2024 11:34:49 Pulmonary embolism 06928647 I26.99 s/p EKOS ( 0) and again nowOn Eliquis Deep venou s thrombosis 720366387 I82.409 Eliquis as above ( 2)-Venous Duplex Study consistent with acute venous thrombosis with acute DVT in the left side but improved from last study. Consider IVUS but patient declines at this time as she is asymptomat icObtain echo to evaluate for structural /functiona l disease. Essential hypertension 25700255 I10 Controlled on current regimen Chronic ob structive pulmonary disease 88287753 J44.9 Follows with pulmonary (Dr. Santos)may have post op pulmonary complicati ons, please consider pulmonary follow upObtain echo to evaluate for structural /functiona l disease. Dyspnea on exertion 6084 5006 R06.09 Stable, unchanged. 2/2 severe emphysema. Follows with pulmonary (Dr. Santos)Obt ain echo to evaluate for structural /functiona l disease. Edema of l ower extremity 299639840 R60.0 Resolved Health Concerns Section Related Observation LastModified by Organization Detai ls LastModified Time None Recorded Concern Status LastModified by Organization Details LastModified Time None Recorded Advance Directives Directive None Recorded Payers Insurance Date Sequence Insurance Name Policy Number Policy [place] Covered Member ID [place] Member ID Guarantor Name 11/02/2024 1 [place] Dominga Reynaga [id number] Dominga Reynaga 11/02/2024 2 [employer] (MEDICARE SUPPLEMENT) Dominga Reynaga [id number] Dominga Reynaga 05/16/2024 1 [facility] (O) [id number] Dominga Reynaga [id number] Dominga Reynaga 05/16/2024 2 MISHA Reynaga [id number] Dominga Reynaga Notes Date Note Type Note Provider Name and Address Organization Details Recorded Time 05/10/2022 text/html Hospitalization Contact RecordReported by Patient Sleep ProblemsReported by Patient 05/10/22CC : Cardiac follow up, dyspnea on -[id number] woman with history of Hypertension, PE, DVT, [...] examination. Severe emphysema. She was seen at [facility] for saddle embolism of pulmonary artery s/p EKOS catheter placement to right and left pulmonary arteries 07/02/20. Discharged from [facility] on 07/05/2020. She reports when she was [...] bilateral PE Emiliano Salazar MD [address] [place], [address], [place] - [facility] 05/10/2022 10:31:33 11/01/2022 text/html Hospitalization Contact RecordReported by Patient Sleep ProblemsReported by Patient 11/01/22CC : Cardiac follow up dyspnea on [id number] woman with history of Hypertension, PE, DVT, [...] examination. Severe emphysema. She was seen at [facility] for saddle embolism of pulmonary artery s/p EKOS catheter placement to right and left pulmonary arteries 07/02/20. Discharged from [facility] on 07/05/2020. She reports when she was [...] arteries with bilateral PE ENAS YASSIN null, [place] - [facility] 11/01/2022 15:25:19 05/17/2023 text/html Hospitalization Contact RecordReported by Patient Sleep ProblemsReported by Patient 05/17/23CC : Cardiac follow up dyspnea on [id number] woman with history of Hypertension, PE, DVT, [...] examination. Severe emphysema. She was seen at [facility] for saddle embolism of pulmonary artery s/p EKOS catheter placement to right and left pulmonary arteries 07/02/20. Discharged from [facility] on 07/05/2020. She reports when she was [...] and calf veins in the left leg [facility] 07/02/2020 Successful EKOS application to the right and left pulmonary arteries with bilateral PE SURENDRA [facility] - [facility] 05/17/2023 11:39:59 11/15/2023 text/html Hospitalization Contact RecordReported by Patient Sleep ProblemsReported by Patient 11/15/23CC : Cardiac follow up dyspnea on [id number] woman with history of Hypertension, PE, DVT, [...] examination. Severe emphysema. She was seen at [facility] for saddle embolism of pulmonary artery s/p EKOS catheter placement to right and left pulmonary arteries 07/02/20. Discharged from [facility] on 07/05/2020. She reports when she was [...] pulmonary arteries with bilateral PE LORENA ESTEVEZMARILEE [facility] [place] - [facility] 11/15/2023 11:50:28 05/14/2024 text/html Hospitalization Contact RecordReported by Patient Sleep ProblemsReported by Patient 05/14/24CC : Cardiac follow [id number] woman with history of Hypertension, PE, DVT, [...] examination. Severe emphysema. She was seen at [facility] for saddle embolism of pulmonary artery s/p EKOS catheter placement to right and left pulmonary arteries 07/02/20. Discharged from [facility] on 07/05/2020. She reports when she was [...] and calf veins in the left leg [facility] 07/02/2020 Successful EKOS application to the right and left pulmonary arteries with bilateral PE Emiliano Salazar MD [address] [place], [address], [facility] - [facility] 05/14/2024 11:29:40 OBGyn Episode No OBEpisode recorded.
--- OUTSIDE RECORDS SUMMARY | 2025-05-27 11:53 | XMS_ITS | Clinical Summary ---
Author Organization [place] [address] [facility] Address [address] [place] [address] Care Team Providers Care Front Window Cashier Name Role Phone Sonya Cabezas MD Primary Care Provider Hitesh Perdue MD Unavailable Matthew Palmer NP Unavailable [phone] Allergies Active Allergy Reactions Criticality Noted Date Comments Naproxen Other (See comments) Low 12/14/2021 gastic bypass- pt stated can not take. Tramadol Itching Low 03/11/2025 tramadol Medications cyanocobalamin (Vitamin B-12) 500 mcg tablet Take 1 tablet (500 mcg total) by mouth every morning Active albuterol HFA (PROVENTIL HFA,VENTOLIN HFA,PROAIR HFA) 90 mcg/actuation inhalerIndicatio ns:Chronic Obstructive Pulmonary Disease Inhale 2 puffs as needed 1 Active budesonide-glyco pyr-formoterol (Breztri Aerosphere) 160-9-4.8 mcg/actuation HFA aerosol inhalerIndicatio ns:Bronchospasm Prevention with COPD Inhale 2 puffs 2 (two) times a day Active multivitamin tabletIndication s:Vitamin Deficiency Prevention Take 1 tablet by mouth 2 (two) times a day 60 tablet 5 2 Active docusate sodium (COLACE) 100 mg capsuleIndicatio ns:constipation Take 1 capsule (100 mg total) by mouth 2 (two) times a day 30 capsule 2 Active apixaban (ELIQUIS) 5 mg tablet 2 Active tiZANidine (ZANAFLEX) 4 mg tablet TAKE 1 TO 2 TABLETS BY MOUTH EVERY DAY AT BEDTIME 3 Active potassium chloride ER 10 mEq CR capsule TAKE 1 CAPSULE BY MOUTH EVERY OTHER DAY 3 Active CALCIUM CITRATE-VITAMIN D3 ORAL Calcium Citrate + D Active amoxicillin 500 mg capsule 3 Active denosumab (Prolia) 60 mg/mL syringe Inject 1 mL as needed by subcutaneous route. Active hydroCHLOROthiaz josette (MICROZIDE) 12.5 mg capsule every other day 4 Active HYDROcodone-acet aminophen (NORCO) 5-325 mg per tabletIndication s:Pain Take 1 tablet by mouth daily as needed for pain 30 tablet 5 Active azelastine 205.5 mcg (0.15 %) spray,non-aeroso l Administer 0.3 mL (2 sprays total) into affected nostril(s) 5 Active mupirocin (BACTROBAN) 2 % ointment Coat inside of both nostrils twice daily for 5 days before surgery. 22 g 5 Active chlorhexidine (HIBICLENS) 4 % external liquidIndication s:Skin Disinfection Shower with soap daily for 5 days before surgery including the morning of. Do not use on face or genital area. 120 mL 5 Active oxyCODONE-acetam inophen (PERCOCET) 5-325 mg per tabletIndication s:Pain Take 1 tablet by mouth 2 (two) times a day as needed for pain 15 tablet 5 Active Active Problems Problem Noted [...] be seen by oculoplastics Age-related osteoporosis wit hojanee current pathological fracture 03/22/2022 Pulmonary embolus with [...] diabetic nephropat hy 10/22/2021 No diagnosis on [place] I 07/06/2021 Dyspnea on exertion 08/28/2020 Deep vein thrombosis (DVT) 07/31/2020 Primary osteoarthritis of left knee 07/12/2016 Primary osteoarthritis of both knees 12/28/2015 Knee pain 09/11/2015 Resolved Problems Problem Noted Date Diagnosed Date Resolved Date Morbid obesity 07/06/2021 10/24/2023 BMI 40.0-44.9, adult 06/14/2021 024 Encounters Date Type Department Care Team Description 05/19/2025 9:05 AM CDT - 05/19/2025 11:59 PM CDT Hospital Encounter [address] [address] Chronic low back pain, unspecified back pain laterality, unspecified whether sciatica present Discharge Disposition: Discharge to home or self care 05/19/2025 Telephone [facility] [address] [place] [address] [address] [place] [phone] Katlyn Palma 05/15/2025 10:00 AM CDT Office Visit [facility] [address] [place] [address] 2 [address] [place] [address] Clint Toscano MD Chronic low back pain, unspecified back pain laterality, unspecified whether sciatica present (Primary Dx) 05/14/2025 1:02 PM CDT - 05/14/2025 11:59 PM CDT [facility] [address] [place] [phone] Jason Zavaleta NP Spondylosis of lumbar region without myelopathy or radiculopathy (Primary Dx); Chronic bilateral thoracic back pain; Thoracic spondylosis; Non-traumatic compression fracture of T11 thoracic vertebra, sequela Discharge Disposition: Discharge to home or self care 05/14/2025 Telephone [facility] [address] [place] [address] [address] [place] [address] Katlyn Palma 05/13/2025 10:52 AM CDT - 05/13/2025 11:59 PM CDT [facility] [address] [place] [address] Hitesh Perdue MD Closed compression fracture of L1 lumbar vertebra, sequela [S32.010S] (Primary Dx); Chronic pain syndrome; Non-traumatic compression fracture of T11 thoracic vertebra, sequela [M48.54XS] Discharge Disposition: Discharge to home or self care 04/24/2025 10:45 AM CDT - 04/24/2025 11:59 PM CDT [facility] [address] [place] [phone] Jason Zavaleta NP Chronic bilateral thoracic back pain (Primary Dx); Thoracic spondylosis; Spondylosis of lumbar region without myelopathy or radiculopathy Discharge Disposition: Discharge to home or self care 04/21/2025 Telephone [facility] [address] [facility] [address] [place] [address] Farhana Holder 04/18/2025 11:00 AM CDT Office Visit [address] [place] [phone] Maggy Cortez MD Age-related osteoporosis without current pathological fracture (Primary Dx) 04/18/2025 10:30 AM CDT Clinical Support [address] [place] [phone] Age-related osteoporosis without current pathological fracture 04/18/[address] [address] Maggy Cortez MD 04/14/2025 Telephone [facility] [address] [place] [address] Stefanie Wallace RN 04/09/2025 8:49 AM CDT - 04/09/2025 11:59 PM CDT [facility] En[facility] [address] [place] [address] Hitesh Perdue MD Myalgia (Primary Dx); Thoracic spondylosis; 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 Discharge Disposition: Discharge to home or self care 04/08/2025 10:00 AM CDT Infusion [facility] [address] [facility] [address] [place] [phone] Age-related osteoporosis without current pathological fracture (Primary Dx) 03/31/2025 Telephone [facility] Pain Management [address] [place] [address] Farhana Holder 03/31/2025 Telephone [facility] Pain Management [address] [place] [address] Farhana Holder 03/11/2025 9:44 AM CDT - 03/11/2025 11:59 PM CDT Hospital Encounter [facility] [address] [place] [address] Matthew Palmer NP Thoracic spondylosis (Primary Dx); 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 Discharge Disposition: Discharge to home or self care 03/04/2025 9:48 AM CDT - 03/04/2025 11:59 PM CDT [facility] En[facility] [address] [place] [address] Hitesh Perdue MD Thoracic spondylosis [M47.814] (Primary Dx); Chronic thoracic back pain, unspecified back pain laterality; Chronic left-sided thoracic back pain Discharge Disposition: Discharge to home or self care from Last 3 Months Surgical History Surgery Date Site/Laterality Comments BACK SURGERY Back Surgery - (Added by TW Conv) [place] CHOLECYSTECTOMY Cholecystectomy - (Added by TW Conv) [...] on file Legal Sex Female 1:15 AM BISQUE TILE BURNER Gender Identity Not on file Sexual Orientation Not on file Last Filed Vital Signs Vital Sign Reading Time Taken Comments Blood Pressure 125/76 05/15/2025 10:06 AM CDT Pulse 73 05/15/2025 10:06 AM CDT Temperature 37.2 C (99 F) 05/15/2025 10:06 AM CDT Respiratory Rate 16 05/15/2025 10:06 AM CDT Oxygen Saturation 98% 05/15/2025 10:06 AM CDT Inhaled Oxygen Concentration - - Weight 71.3 kg (157 lb 1.6 oz) 05/15/2025 10:06 AM CDT Height 157.5 cm (5' 2) 05/15/2025 10:06 AM CDT Body Mass Index 28.73 05/15/2025 10:06 AM CDT Plan of Treatment Upcoming Encounters Date Type Department Care Team (Late st Contact Info) Description 08/07/2025 7:30 AM BISQUE TILE BURNER Hospital Encounter Operating Room [address] [place] [address] Hitesh Perdue MD [address] [place] [id number] 08/07/2025 7:30 AM BISQUE TILE BURNER - 08/07/2025 10:30 AM BISQUE TILE BURNER Surgery Operating Room [address] [place] [phone] [place] [address] [place] [address] INSERTION INTRATHECAL PUMP/120 MIN Scheduled Procedures Name Priority Associated Diagnoses Date/Ti me INSERTION INTRATHECAL PUMP LOW BACK PAIN 08/07/2025 7:30 AM BISQUE TILE BURNER REMOVAL STIMULATOR - DORSAL COLUMN LOW BACK PAIN 08/07/2025 7:30 AM BISQUE TILE BURNER Health Maintenance Due Date Last Done Comments Albumin Creatinine Ratio, Urine 1950 Breast Cancer Screening-Mammogram 1950 Colon Cancer Screening-Colonoscopy 1950 Depression Screening 1950 Dilated Eye Exam 1950 Foot Exam 1950 DTaP/Tdap/Td Vaccine (1 - Tdap) 1961 Hepatitis B Screening 1968 Pneumococcal vaccine 65+ (1 of 2 - PCV) 1969 Lung Cancer Screening 2000 Well Visit 65+ 2015 Hemoglobin A1C 07/03/2022 01/01/2022, 05/25, 07/03/2020 Lipid Panel 01/01/2023 01/01/2022, 04/0 07/2021, 06/14/2021, Additional history exists eGFR 03/22/2023 03/22/2022, 12/22, 01/05/2022, Additional history exists Covid-19 Vaccine (2024-2 6 season) 2025 12/16/2021, 05/18/2021, 10/12/2020, Additional history exists Influenza Vaccine (#1) 2025 , 04/12/2020, 04/29/2019, Additional history exists Fall Risk Assessment 05/15/2026 05/15/2025 Osteoporosis Screening-Bone Density Scan 04/18/2027 04/18/2025, 04/09/2024, 03/28/2023, Additional history exists Hepatitis C Screening Completed 07/03/2020 Zoster Vaccine Completed 12/13/2020, 04/12/2020 Procedures Procedure Name Priority Date/Time Associated Diagnosis Comments CT THORACIC SPINE WO CONTRAST Schedule Routine, Read Routine (OP Routine) 05/19/2025 9:22 AM CDT Chronic low back pain, unspecified back pain laterality, unspecified whether sciatica present PAIN MGMT IMAGING LUMBAR/CAUDAL EPIDURAL STEROID INJ Schedule Routine, Read Routine (OP Routine) 05/13/2025 12:01 PM CDT Chronic pain syndrome DEXA TBS AXIAL SKELETON BONE DENSITY 1 OR MORE SITES Schedule Routine, Read Routine (OP Routine) 04/18/2025 10:28 AM CDT Age-related osteoporosis without current pathological fracture PAIN MGMT IMAGING PERIPHERAL NERVE STIM PLACEMENT Schedule Routine, Read Routine (OP Routine) 03/04/2025 11:02 AM CDT Chronic thoracic back pain, unspecified back pain laterality Chronic left-sided thoracic back pain EGFR Routine 03/22/2022 11:07 AM CDT Age-related osteoporosis without current pathological fracture HEMOGLOBIN A1C Routine 01/01/2022 11:39 AM CDT LIPID PANEL Routine 01/01/2022 11:39 AM CDT HEPATITIS PANEL, ACUTE Routine 07/03/2020 6:15 AM BISQUE TILE BURNER from Last 3 Months or Most Recently Relevant to Health Maintenance Results * CT Thoracic Spine WO Contrast (05/19/2025 9:22 AM CDT) Anatomical Region Laterality Modality Spine N/A Computed Tomogra phy 05/19/2025 9:54 AM CDT Impressions 05/19/2025 9:54 AM CDT 1. Moderate thoracic spine degenerative changes. No gross high-grade osseous spinal canal stenosis. 2. Thoracic spinal stimulator leads extending to the level of T6-T7. 3. Left upper lobe pulmonary nodular focus is new when compared to the previous chest CT dated 07/05/2021. Recommend dedicated chest CT. Electronically signed by: Ishaan Landaverde D.O. Narrative 05/19/2025 9:54 AM CDT EXAM DESCRIPTION:CT THORACIC SPINE WO CONTRAST REASON FOR STUDY:Per patient spinal cord stimulator not working, check spinal cord stimulator prior to removal. . Needed prior to removal of spinal cord stimulator. TECHNIQUE: Axial images through the thoracic spine with sagittal and coronal reformatted images. Automated exposure control was used as a dose optimization technique for this examination. COMPARISON:Thoracic spine MRI images without a report dated 09/10/2022. Thoracic spine radiographs dated 03/28/2023. Scoliosis radiographs dated 11/29/2023. FINDINGS: ALIGNMENT: Anterior posterior alignment is maintained. VERTEBRAE:The osseous structures are demineralized and limits assessment of subtle nondisplaced fracture. The T11 superior endplate Schmorl's node/chronic deformity is again seen. A few additional scattered Schmorl's node/endplate irregularities. Multilevel endplate degenerative changes with marginal spur formation. DISCS: Diffuse intervertebral disc height loss. HARDWARE: Spinal stimulator leads enter the dorsal bony spinal canal at T8-T9 and course cranially. Distal most tip along the right dorsal lateral spinal canal at the level of T6-T7. INDIVIDUAL DISC LEVELS: Suboptimally evaluated by non-myelographic CT technique. There are a few scattered disc bulges/marginal spur formation including at T1-T2, T2-T3, T3-T4, T8-T9, T9-T10, T10-T11, T11-T12 and T12-L1 without gross high-grade osseous spinal canal stenosis. SOFT TISSUES: The evaluation of the lung parenchyma is limited due to motion related artifact. Left upper lobe lateral margin somewhat linear 0.6 cm focus (series 2, image 36) without definite correlate on the prior chest CT dated 07/05/2021. Calcified plaque in the imaged thoracicoabdominal aorta. Debris in the distal esophagus. Postoperative changes at the distal esophagus/GE junction. Partially imaged kidneys with the right renal multiple nonobstructing calculi measuring up to 0.3-0.4 cm. LOWER CERVICAL: Incompletely imaged. Partial osseous fusion across the lower cervical disc spaces. UPPER LUMBAR: Incompletely imaged. The L1 vertebral body deformities status post augmentation procedure as seen on the previous thoracic spine MRI dated 09/10/2022. Procedure Note Ishaan Landaverde DO - 05/19/2025 EXAM DESCRIPTION:CT THORACIC SPINE WO CONTRAST REASON FOR STUDY:Per patient spinal cord stimulator not working, check spinal cord stimulator prior to removal. . Needed prior to removal of spinal cord stimulator. TECHNIQUE: Axial images through the thoracic spine with sagittal and coronal reformatted images. Automated exposure control was used as a dose optimization technique for this examination. COMPARISON:Thoracic spine MRI images without a report dated 09/10/2022. Thoracic spine radiographs dated 03/28/2023. Scoliosis radiographs dated 11/29/2023. FINDINGS: ALIGNMENT: Anterior posterior alignment is maintained. VERTEBRAE:The osseous structures are demineralized and limits assessment of subtle nondisplaced fracture. The T11 superior endplate Schmorl's node/chronic deformity is again seen. A few additional scattered Schmorl's node/endplate irregularities. Multilevel endplate degenerative changes with marginal spur formation. DISCS: Diffuse intervertebral disc height loss. HARDWARE: Spinal stimulator leads enter the dorsal bony spinal canal at T8-T9 and course cranially. Distal most tip along the right dorsal lateral spinal canal at the level of T6-T7. INDIVIDUAL DISC LEVELS: Suboptimally evaluated by non-myelographic CT technique. There are a few scattered disc bulges/marginal spur formation including at T1-T2, T2-T3, T3-T4, T8-T9, T9-T10, T10-T11, T11-T12 and T12-L1 without gross high-grade osseous spinal canal stenosis. SOFT TISSUES: The evaluation of the lung parenchyma is limited due to motion related artifact. Left upper lobe lateral margin somewhat linear 0.6 cm focus (series 2, image 36) without definite correlate on the prior chest CT dated 07/05/2021. Calcified plaque in the imaged thoracicoabdominal aorta. Debris in the distal esophagus. Postoperative changes at the distal esophagus/GE junction. Partially imaged kidneys with the right renal multiple nonobstructing calculi measuring up to 0.3-0.4 cm. LOWER CERVICAL: Incompletely imaged. Partial osseous fusion across the lower cervical disc spaces. UPPER LUMBAR: Incompletely imaged. The L1 vertebral body deformities status post augmentation procedure as seen on the previous thoracic spine MRI dated 09/10/2022. IMPRESSION: 1. Moderate thoracic spine degenerative changes. No gross high-grade osseous spinal canal stenosis. 2. Thoracic spinal stimulator leads extending to the level of T6-T7. 3. Left upper lobe pulmonary nodular focus is new when compared to the previous chest CT dated 07/05/2021. Recommend dedicated chest CT. Electronically signed by: Ishaan Landaverde D.O. Clint Toscano MD IM CT PROCEDURES Final Resul t * Imaging Lumbar/Caudal Epidural Steroid INJ (74706) (05/13/2025 12:01 PM CDT) Narrative [facility] - 05/13/2025 12:07 PM CDT The images from this study are not interpreted by Radiology. Please refer to the physician's procedure / OR operative note. us Hitesh Perdue MD [facility] [place] MGMT PROCEDU RES Final Result [facility] * Dexa TBS Axial Skeleton Bone Density 1 or more sites (04/18/2025 10:28 AM CDT) Anatomical Region Laterality Modality Wrist, Body N/A Radiographic Lynn ging Narrative 04/19/2025 11:37 AM CDT Patient Name: Dominga Reyanga Date of : 1950 Date of scan: 04/18/2025 Bone mineral density was performed on a [employer] Discovery Densitometer. Based on machine cross-calibration and [...] mineral density scan were prepared by Adriana Morales(R) CBDAki who is accredited by the International Society of Clinical Densitometry. The overall patient assessment and scan interpretation were performed by Maggy Cortez M.D. who is certified by the International Society of Clinical Densitometry. [id number] us Maggy Cortez MD IM DXA PROCEDURES Final Resu lt * Imaging Peripheral Nerve Stim Placement (67547) (03/04/2025 11:02 AM CDT) Narrative [facility] - 03/04/2025 11:02 AM CDT The images from this study are not interpreted by Radiology. Please refer to the physician's procedure / OR operative note. us Hitesh Perdue MD IMG PAIN MGMT PROCEDU RES Final Result [facility] * (ABNORMAL) eGFR (03/22/2022 11:07 AM [...] MD LAB BLOOD ORDERABLES Final Re sult [facility] [address] [facility] [place] [address] * Hemoglobin A1c (01/01/2022 11:39 AM CDT) Hgb A1C 5.1 4.0 - 5.6 % MISA[facility] Estimated Average Glucose 100 mg/dL MISAEL Comment: The ADA recommends reporting an estimated Average Glucose (eAG) with all Hemoglobin A1c results using the equation derived from a study of 507 normal and diabetic adults. Minority populations were underrepresented and children were not included. (Diabetes Care 31:9198-4054, 2008). The eAG is not equivalent to a fasting glucose. Blood 01/01/2022 11:3 9 AM CDT 01/01/2022 11:42 AM CDT Moris Gordon MD LAB BLOOD ORDERABLES Final Result MISAEL [address] [facility] [place] [address] * Lipid panel (01/01/2022 11:39 AM CDT) [...] LAB BLOOD ORDERABLES Final Result MISAEL PERRY [address] [facility] [place] [address] * Hepatitis panel, acute (07/03/2020 6:15 AM BISQUE TILE BURNER) HepBsAg NONREACT NONREACTIVE [facility] Comment: Siemens CentaurXP using ANGÉLICA (chemiluminescent immunoassay) technology. NONREACTIVE: IgM antibodies to Hepatitis B Surface antigen not detected. REACTIVE: IgM antibodies to Hepatitis B Surface antigen detected. Reactive results will be confirmed by neutralization testing. HBsAb qn <3.10 mIU/mL [facility] Comment: Siemens CentaurXP using ANGÉLICA (chemiluminescent immunoassay) technology. 9.99 IU/L or less.....NONREACTIVE: IgM antibodies to Hepatitis B Surface antibody are not detected. 10.00 IU/L or greater..REACTIVE: IgM antibodies to Hepatitis B Surface antibody are detected. Hep B core IgM NONREACT NONREACTIVE [facility] Comment: Siemens CentaurXP using ANGÉLICA (chemiluminescent immunoassay) technology. NONREACTIVE: IgM antibodies to Hepatitis B Core antigen not detected. EQUIVOCAL: IgM antibodies to Hepatitis B Core antigen may or may not be present. Obtain a new specimen and retest. REACTIVE: IgM antibodies to Hepatitis B Core antigen detected. Hep A IgM NONREACT NONREACTIVE [facility] Comment: Siemens CentaurXP using ANGÉLICA (chemiluminescent immunoassay) technology. NONREACTIVE: IgM antibodies to Hepatitis A not detected. This does not exclude possibility of exposure to Hepatitis A or early acute infection. EQUIVOCAL:IgM antibodies to Hepatitis A may or may not be present. Suggest recollection and retest. REACTIVE: Antibodies to Hepatitis A detected. Hep C Ab NONREACT NONREACTIVE [facility] Comment: Siemens CentaurXP using ANGÉLICA (chemiluminescent immunoassay) [...] by real-time PCR method. 07/03/2020 6:15 AM BISQUE TILE BURNER 07/03/2020 6:19 AM BISQUE TILE BURNER Narrative Resulting Agency Comment IN Akanksha BethChris Arriaza DO LAB MICROBIOLOGY - GENERAL OR DERABLES Final Result [facility] [address] [place] [address], [place] [phone] from Last 3 Months or Most Recently Relevant to Health Maintenance Insurance [facility] MEDICARE MEDICARE [employer] SENIOR SUPPLE[place] [address] MEDICARE [employer] SENIOR SUPPLEMENT Advance Directives For more information, please contact: [phone] * Full Code (Latest Code Status on File) Date Activated Date Inactivated Comments 01/01/2022 11:24 AM 01/06/2022 7:11 PM * Full Code Date Activated Date Inactivated Comments 10/21/2021 3:06 PM 10/23/2021 7:07 PM Care Teams Front Window Cashier Relationship Specialty Start Date End Date Sonya Cabezas MD PCP - General Family Medicine 04/10/24 [place] [address] [place] [address] Consulting Physician Pain Management 03/11/25 [place] [address] [place] [address] Nurse Practitioner Nurse Practitioner 03/11/25
--- OUTSIDE RECORDS SUMMARY | 2025-05-27 11:53 | XMS_ITS | Encounter Summary ---
Author Organization [facility] Address [address] [place] [address] Care Team Providers Care Sugar Coating Hand Name Role Phone Unavailable Primary Care Provider Unavailabl e Encounter Details Date Type Department Care Team (Late st Contact Info) Description 08/14/2004 Outpatient Historical [facility] Internal Medicine [address] [place] [address] Jh Nieves MD [address] [facility] [address] [place] [address] Social History Tobacco Use Types Packs/Day Years Used Date Smoking Tobacco: Never Assessed Comments Unknown Sex and Gender Information Value Date Recorded Sex Assigned at Not on file Legal Sex Female 4:05 AM 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
--- OUTSIDE RECORDS SUMMARY | 2025-05-27 11:53 | XMS_ITS | Clinical Summary ---
Author Organization [facility] Address [address] [place] [address] Care Team Providers Care Excavating Machine Operator Name Role Phone Quinton Cade MD Unavailable [phone] Sonya Cabezas MD Primary Care Provider [phone] Source Comments [facility],non-owned Affiliates and Associated Physician Practices is amultiple site organization consisting of ambulatory clinics and hospital sitesin [place], [place], [place] and [place]. This disclosure is being madepursuant to the Care Everywhere program and may not contain all information available regarding this patient. 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 Gender Identity Not on file Sexual Orientation [...] to complete this [place] [address] PAYOR GENERIC [employer] [id number] [employer] MEDICARE A[employer] PA[employer]OR GENERIC * Guarantor: [id number] Account Type Relation to Patient Date of Phone Billing Address Workers Comp Employer [employer] * Guarantor: [id number] Account Type Relation to Patient Date of Phone Billing Address Workers Comp Employer Care Teams Excavating Machine Operator Relationship Specialty Start Date End Date Sonya Cabezas MD [address] [place] [address] PCP - General 05/03/22 [place] [id number] [address] Orthopedic Surgery 12/28/15
--- OUTSIDE RECORDS SUMMARY | 2025-05-27 11:53 | XMS_ITS | Encounter Summary ---
Author Organization [facility] Address [address] [place] [address] Care Team Providers Care Medical Logistics Specialist Name Role Phone Unavailable Primary Care Provider Unavailabl e Encounter Details Date Type Department Care Team (Late st Contact Info) Description 02/07/2004 Outpatient Historical [facility] Internal Medicine [address] [place] [address] Jh Nieves MD [address] [facility] [address] [place] [address] Social History Tobacco Use Types Packs/Day Years Used Date Smoking Tobacco: Never Assessed Comments Unknown Sex and Gender Information Value Date Recorded Sex Assigned at Not on file Legal Sex Female 4:05 AM HEALTH ADVISOR Gender Identity Not on file Sexual Orientation Not on file documented as of this encounter Plan of Treatment Not on file documented as of this encounter Visit Diagnoses Not on filedocumented in this encounter
--- OUTSIDE RECORDS SUMMARY | 2025-05-27 11:53 | XMS_ITS | Encounter Summary ---
Author Organization [facility] Address [address] [place] [address] Care Team Providers Care Account Service Associate Name Role Phone Unavailable Primary Care Provider Unavailabl e Encounter Details Date Type Department Care Team (Late st Contact Info) Description 02/07/2004 Outpatient Historical [facility] Internal Medicine [address] [place] [address] Jh Nieves MD [address] [facility] [address] [place] [address] Social History Tobacco Use Types Packs/Day Years Used Date Smoking Tobacco: Never Assessed Comments Unknown Sex and Gender Information Value Date Recorded Sex Assigned at Not on file 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
--- OUTSIDE RECORDS SUMMARY | 2025-05-27 11:53 | XMS_ITS | Encounter Summary ---
Author Organization [facility] Address [address] [place] [address] Care Team Providers Care Placement Coordinator Name Role Phone Unavailable Primary Care Provider Unavailabl e Encounter Details Date Type Department Care Team (Late st Contact Info) Description 12/31/2004 Outpatient Historical [facility] Internal Medicine [address] [place] [address] Jh Nieves MD [address] [facility] [address] [place] [address] Social History Tobacco Use Types Packs/Day Years Used Date Smoking Tobacco: Never Assessed Comments Unknown Sex and Gender Information Value Date Recorded Sex Assigned at Not on file 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
--- OUTSIDE RECORDS SUMMARY | 2025-05-27 11:53 | XMS_ITS | Encounter Summary ---
Author Organization [facility] Address [address] [place] [address] Care Team Providers Care Case Management Specialist Name Role Phone Unavailable Primary Care Provider Unavailabl e Encounter Details Date Type Department Care Team (Late st Contact Info) Description 10/26/2002 Outpatient Historical [facility] Internal Medicine [address] [place] [address] Jh Nieves MD [address] [facility] [address] [place] [address] Social History Tobacco Use Types Packs/Day Years Used Date Smoking Tobacco: Never Assessed Comments Unknown Sex and Gender Information Value Date Recorded Sex Assigned at Not on file 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
== END 2025-05-27 10:22 | disposition home or self-care (01) ==
PROVIDERS: Visit Provider Physician Assistant
DX: Z12.2 Encounter for screening for malignant neoplasm of respiratory organs (principal); Z87.891 Personal history of nicotine dependence
CPT/HCPCS: 71271